=== PATIENT | male | born 1965 | race Caucasian/White ===

== ENCOUNTER 2021-10-02 17:20 | Outpatient (CLI) | payer MEDICAID, SELFPAY ==
[2021-10-02 17:47] VITALS: BP 115/99; PULSE 116; RESP 22; TEMP 37; O2SAT 92; BMI 39.5
[2021-10-02] MEDS: 0.9% Saline Lock 10 ML Syringe IV (18:16)
[2021-10-02 18:57] VITALS: BP 174/93; PULSE 105; RESP 20; TEMP 37.4; O2SAT 93
[2021-10-02 19:52] VITALS: BP 164/84; PULSE 103; RESP 20; TEMP 37.8; O2SAT 93
== END 2021-10-02 20:05 | disposition home or self-care (01) ==
LOC: MS3OUT 17:21 → MS3 17:22
PROVIDERS: PCP Family Medicine; Referring Provider Nurse Practitioner Adult Health; Visit Provider Nurse Practitioner Adult Health
DX: Z23 Encounter for immunization (principal); U07.1 COVID-19
CPT/HCPCS: J7050; M0245; Q0245; A4216

== ENCOUNTER 2025-08-11 15:38 | Emergency (ER) | payer SELFPAY ==
[2025-08-11 15:38] VITALS: BP 183/83; PULSE 70; RESP 18; TEMP 36.6; O2SAT 98; BMI 46.2
--- OUTSIDE RECORDS SUMMARY | 2025-08-11 17:14 | XMS RPT_ITS | CCD ---
Author Organization [facility] Care Team Providers Care Sounding Device Operator Name Role Phone Trill CATALYST IMPREGNATOR.Marcio VARGAS Primary Care Provider Trill CATALYST IMPREGNATOR.Marcio VARGAS Primary Care Provider Trill CATALYST IMPREGNATOR.Marcio VARGAS C Unavailable Michael Boogie MD Unavailable Manpreet Bloom RN Unavailable [phone] February [facility], Gabriela Unavailable Unavailable Patria DAVIS, Kim Unavailable Unavailable Trill CATALYST IMPREGNATOR.Marcio VARGAS C Unavailable Trill CATALYST IMPREGNATOR.Marcio VARGAS Primary Care Provider Trill CATALYST IMPREGNATOR.ALICIA Marcio C Unavailable Trill CATALYST IMPREGNATOR.Marcio VARGAS Primary Care Provider Trill CATALYST IMPREGNATOR.Raleigh VARGASistin C Unavailable Michael Boogie MD Unavailable Matthias Richard RN Unavailable Unavailable CASEY JUAN Admitting Unavailable EMI AKHTAR Referring Unavailable TRIGISELLE, MARCIO C Primary Care Unavailable PATRICIA SAMANIEGO Consulting Unavailable RAJESH ALCOCER Attending Unavailable Trill CATALYST IMPREGNATOR.Marcio VARGAS Primary Care Provider TRIGISELLE, MARCIO C Primary Care Unavailable TRIGISELLE, MARCIO C Referring Unavailable TRILL, MARCIO C Primary Care Unavailable FILIPE MADSEN Attending Unavailable JESSICA ELLIS Attending Unavailable TRILL, MARCIO C Primary Care Unavailable FILIPE MADSEN Attending Unavailable TRIGISELLE, MARCIO C Primary Care Unavailable TRILL, MARCIO C Referring Unavailable TRILL, MARCIO C Primary Care Unavailable TRILL, MARCIO C Referring Unavailable KAMILLE ASCENCIOACE TOMMY Attending Unavailable TRILL, MARCIO C Primary Care Unavailable JESSICA DURHAM Attending Unavailable TRILL, MARCIO C Primary Care Unavailable TRILL, MARCIO C Referring Unavailable TRILL, MARCIO C Primary Care Unavailable TRILL, MARCIO C Attending Unavailable TRILL, MARCIO C Primary Care Unavailable TRILL, MARCIO C Referring Unavailable TRILL, MARCIO C Referring Unavailable TRILL, MARCIO C Primary Care Unavailable TRILL, MARCIO C Primary Care Unavailable TRILL, MARCIO C Primary Care Unavailable TRILL, MARCIO C Referring Unavailable SELF Referring Unavailable TRILL, MARCIO C Primary Care Unavailable SHANNEN FLOWER Attending Unavailable TRILL, MARCIO C Attending Unavailable TRILL, MARCIO C Primary Care Unavailable Allergies Allergy Classification Reported Allergen(s) Allergy Type Date of Onset Reaction(s) Facility (20 sources) Seasonal allergy; Translations: [SEASONAL ALLERGIES] Allergy to substance 05-11-2013 Unknown [facility] Work Phone: (20 sources) Cat Dander; Translations: [CAT DANDER] Drug Allergy 09-29-2022 Intolerance [facility] Medications Current Medications Medication Drug Class(es) Dates Sig (Normalized) Sig (Original) acetaminophen 500 mg oral tablet (20 sources) Start: 06-09-2022 take 2 tablets by mouth every six hours as needed acetaminophen (TYLENOL) 500 mg tablet Take 2 tablets by mouth every 6 hours as needed for pain. 06/09/2022 Active Comment on above: Take 2 tablets by mo [facility] every 6 hours as needed for pain. 10 ml aminophylline 25 mg/ml injection (1 source) Start: 12-31-2023 End: 01-08-2024 aminophylline 50-250 mg injection amLODIPine 10 mg oral tablet (20 sources) Dihydropyridine Calcium Channel Ladarius Start: 01-03-2024 End: 02-02-2024 take 1 tablet by mouth once daily amLODIPine (NORVASC) 10 mg tablet take 1 tablet by mouth every day 90 tablet 3 01/28/2024 Active Comment on above: Take 1 tablet by randall th once daily. take 1 tablet by randall th every day amoxicillin 875 mg / clavulanate 125 mg oral tablet (12 sources) Penicillin-class Antibacterial Start: 08-28-2023 End: 09-07-2023 take 1 tablet by mouth every twelve hours amoxicillin-clavul anate potassium (AUGMENTIN) 875-125 mg per tablet Indications: Respiratory infection Take 1 tablet by mouth every 12 hours for 10 days. 20 tablet 0 08/28/2023 09/07/2023 Active Start: 06-13-2022 End: 06-23-2022 take 1 tablet by mouth every twelve hours amoxicillin-clavulanic acid (AUGMENTIN) 875-125 mg per tablet Indications: Pleural effusion on left Take 1 tablet by mouth every 12 hours for 10 days. 20 tablet 0 06/13/2022 06/23/2022 Suspended Comment on above: Take 1 tablet by randall th every 12 hours for 10 days. apixaban 5 mg oral tablet (20 sources) Factor Xa Inhibitor Start: 03-16-2025 take 1 tablet by mouth twice daily apixaban (ELIQUIS) 5 mg tab(s) Indications: Bilateral pulmonary embolism (HCC) TAKE 1 TABLET BY MOUTH TWICE DAILY 180 tablet 3 03/16/2025 Active Start: 10-10-2024 take 1 tablet by randall th twice daily ELIQUIS 5 mg tab(s) Indications: Bilateral pulmonary embolism (HCC) TAKE 1 TABLET BY MOUTH TWICE A DAY 180 tablet 1 10/10/2024 Active Start: 07-08-2022 End: 09-19-2024 take 1 tablet by mouth twice daily apixaban (ELIQUIS) 5 mg tab(s) Indications: History of pulmonary embolism Take 1 tablet by mouth two times a day. 60 tablet 0 01/02/2024 02/01/2024 Active Start: 06-26-2022 End: 07-08-2022 take 2 tablets by mouth twice daily, then take 1 tablet by mouth twice daily apixaban (ELIQUIS) 5 mg (74 tabs) Take 2 tablets (10 mg) by mouth twice daily for 7 days. Then take 1 tablet (5 mg) by mouth twice daily for 23 days 74 tablet 0 06/26/2022 07/08/2022 Discontinued Start: 06-26-2022 take 2 tablets by mo [facility] twice daily, then take 1 tablet by mouth twice daily apixaban (ELIQUIS) 5 mg (74 tabs) Take 2 tablets (10 mg) by mouth twice daily for 7 days. Then take 1 tablet (5 mg) by mouth twice daily for 23 days 74 tablet 0 06/26/2022 Active Start: 06-26-2022 End: 06-26-2022 take 2 tablets by mouth twice daily, then take 1 tablet by mouth twice daily apixaban (ELIQUIS) 5 mg (74 tabs) Take 2 tablets (10 mg) by mouth twice daily for 7 days. Then take 1 tablet (5 mg) by mouth twice daily for 23 days 74 tablet 0 06/26/2022 06/26/2022 Discontinued Comment on above: Take 2 tablets (10 m g) by mouth twice daily for 7 days. Then take 1 tablet (5 mg) by mouth twice daily for 23 days [facility]. [facility]. calcipotriene 0.51301 mg/mg topical ointment (16 sources) Vitamin D Analog Start: calcipotriene (DOVONEX) 0.005 % oint Apply 1 application to affected area once daily. For the lower legs. 60 g 3 05/24/2024 Active cephalexin 500 mg oral capsule (4 sources) Cephalosporin Antibacterial Start: End: take 1 capsule by mouth four times daily cephALEXin (KEFLEX) 500 mg capsule Take 1 capsule by mouth four times daily for 10 days. 40 capsule 0 06/02/2022 06/12/2022 Suspended Comment on above: Take 1 capsule by [facility] four times daily for 10 days. dapagliflozin 10 mg oral tablet (20 sources) Sodium-Glucose Cotransporter 2 Inhibitor Start: 025 take 0.5 tablet by mouth once daily at breakfast FARXIGA 10 mg tablet TAKE 1/2 (ONE-HALF) OF A TABLET BY MOUTH ONCE DAILY with BREAKFAST 45 tablet 03/15/2025 Active Start: 01-28-2024 End: 10-04-2024 take 0.5 tablet by mouth once daily at breakfast FARXIGA 10 mg tablet TAKE 0.5 TABLETS BY MOUTH DAILY WITH BREAKFAST. 45 tablet 10/04/2024 Active Comment on above: Take 0.5 tablets by mouth daily with breakfast. doxycycline hyclate 100 mg oral capsule (6 sources) Tetracycline-class Drug Start: 05-30-20 End: 06-09-20 take 1 capsule by mouth twice daily doxycycline hyclate (VIBRAMYCIN) 100 mg capsule Indications: sinusitis Take 1 capsule by mouth twice daily for 10 days. 20 capsule 0 05/30/2022 06/09/2022 Suspended Comment on above: Take 1 capsule by mo [facility] twice daily for 10 days. furosemide 40 mg oral tablet (20 sources) Loop Diuretic Start: 06-13-20 End: 09-23-20 23 take 1 tablet by mouth once furosemide (LASIX) 40 mg tablet Indications: Pleural effusion on left , Lung crackles Take 1 tablet by mouth every afternoon. 90 tablet 1 09/23/2023 Active Comment on above: Take 1 tablet by randall th once daily. TAKE 1 TABLET BY RANDALL TH EVERY DAY Take 1 tablet by randall th every afternoon. hydrALAZINE hydrochloride 10 mg oral tablet (20 sources) Arteriolar Vasodilator Start: 10-10-20 End: 05-15-20 take 1 tablet by mouth three times daily hydrALAZINE (APRESOLINE) 10 mg tablet Indications: Essential hypertension TAKE 1 TABLET BY MOUTH THREE TIMES DAILY 270 tablet 1 05/15/2025 Active Start: 02-17-2024 End: 08-15-2024 take 1 tablet by mouth three times daily hydrALAZINE (APRESOLINE) 10 mg tablet Indications: Essential hypertension Take 1 tablet by mouth three times a day. 270 tablet 1 02/17/2024 Active Start: 01-02-2024 End: 02-01-2024 take 1 tablet by mouth every six hours as needed hydrALAZINE (APRESOLINE) 10 mg tablet Take 1 tablet by mouth every 6 hours as needed (SBP >160 or DBP >100). 21 tablet 0 01/02/2024 Active Comment on above: Take 1 tablet by randall th every 6 hours as needed (SBP >160 or DBP >100). iv contrast (will be provided with radiology test) (20 sources) Start: 5 End: 5 inject 1 dose intravenously once iv contrast (will be provided with radiology test) Indications: SOB (shortness of breath) , Heart failure with mid-range ejection fraction (HCC) , Coronary artery calcification seen on CT scan CTA Coronary. No IV access, insert saline lock prior to the sedation, infusion, injection for imaging exam. Discontinue saline lock post exam. If Pt. has a central line or IVAD, may access for administration according to line specific nursing protocol. Once exam is complete flush line and de-access according to line specific nursing protocol in the CT contrast administration guidelines link. 1 each 07/05/2025 07/06/2025 Active Start: 04-14-2024 End: 04-15-2024 iv contrast (will be provide d with radiology test) MRI Pituitary Inject, intravenously, once for 1 dose. No IV access, insert saline lock prior to the beginning of sedation, infusion, injection of imaging exam. Discontinue saline lock post exam. If Pt. has a central line or IVAD, may access for administration according to line specific nursing protocol. Once exam is complete flush line and de-access according to line specific nursing protocol in the MR contrast administration guidelines link. 1 Each 0 04/14/2024 04/15/2024 Active Start: 09-24-2022 End: 09-23-2023 iv contrast (will be provide d with radiology test) Indications: Pulmonary embolism, bilateral (HCC) CT Chest PE -Inject, intravenously, once for 1 dose.No IV access, insert saline lock prior to the beginning of sedation, infusion, injection of imaging exam. Discontinue saline lock post exam. If Pt. has a central line or IVAD, may access for administration according to line specific nursing protocol. Once exam is complete flush line and de-access according to line specific nursing protocol in the CT contrast administration guidelines link. 1 Each 0 09/24/2022 09/23/2023 Discontinued Start: 09-24-2022 iv contrast (w ill be provided with radiology test) Indications: Pulmonary embolism, bilateral (HCC) CT Chest PE -Inject, intravenously, once for 1 dose.No IV access, insert saline lock prior to the beginning of sedation, infusion, injection of imaging exam. Discontinue saline lock post exam. If Pt. has a central line or IVAD, may access for administration according to line specific nursing protocol. Once exam is complete flush line and de-access according to line specific nursing protocol in the CT contrast administration guidelines link. 1 Each 0 09/24/2022 Active Comment on above: CT Chest PE -Inject, intravenously, once for 1 dose.No IV access, insert saline lock prior to the beginning of sedation, infusion, injection of imaging exam. Discontinue saline lock post exam. If Pt. has a central line or IVAD, may access for administration according to line specific nursing protocol. Once exam is complete flush line and de-access according to line specific nursing protocol in the CT contrast administration guidelines link. ammonium lactate 120 mg/ml topical cream (20 sources) Start: 4 ammonium lactate (LAC-HYDRIN) 12 % cream Indications: Xerosis cutis Apply to affected area as needed. 385 g 5 02/24/2024 Active losartan potassium 100 mg oral tablet (20 sources) Angiotensin 2 Receptor Ladarius Start: 3 End: 5 take 1 tablet by mouth once losartan (COZAAR) 100 mg tablet Indications: Essential hypertension Take 1 tablet by mouth every afternoon. 90 tablet 1 04/19/2025 Active Start: 10-22-2022 End: 04-30-2023 take 1 tablet by mouth once daily losartan (COZAAR) 100 mg tablet Indications: Essential hypertension TAKE 1 TABLET BY MOUTH EVERY DAY 30 tablet 2 04/30/2023 Active Start: 10-29-2021 End: 05-27-2022 take 1 tablet by mouth once daily losartan (COZAAR) 100 mg tablet Indications: Essential hypertension Take 1 tablet by mouth once daily. 30 tablet 2 05/27/2022 Active Comment on above: TAKE 1 TABLET BY RANDALL TH EVERY DAY TAKE ONE TABLET BY M OUT ONCE DAILY Take 1 tablet by randall th once daily. methocarbamol 500 mg oral tablet (1 source) Muscle Relaxant Start: 4 End: 4 take 1 tablet by mouth every twelve hours as needed methocarbamol (ROBAXIN) 500 mg tablet Take 1 tablet by mouth two times a day as needed for up to 7 days. 10 tablet 0 01/02/2024 01/09/2024 Active Comment on above: Take 1 tablet by randall th two times a day as needed for up to 7 days. metoprolol tartrate 50 mg oral tablet (20 sources) beta-Adrenergic Ladarius Start: 5 metoprolol tartrate, short acting, (LOPRESSOR) 50 mg tablet Indications: SOB (shortness of breath) , Heart failure with mid-range ejection fraction (HCC) , Coronary artery calcification seen on CT scan Take one 50 mg tablet the evening prior to the CTA examination, take another 50 mg tablet the morning of the CTA examination. 2 tablet 07/05/2025 Active Start: 12-31-2023 End: 01-08-2024 metoprolol 2.5-5 mg injectio n (LOPRESSOR) Start: 10-29-2021 End: 10-20-2024 take 1 tablet by mouth once metoprolol succinate ER (T OPROL XL) 100 mg Indications: Essential hypertension Take 1 tablet by mouth every afternoon. 90 tablet 1 10/21/2024 Active Comment on above: TAKE 1 TABLET BY RANDALL TH EVERY DAY Take 1 tablet by randall th once daily. nitroglycerin 0.3 mg sublingual tablet (1 source) Nitrate Vasodilator Start: 07-05-20 take 1 tablet under the tongue once nitroglycerin sublingual (NITROQUICK) 0.3 mg SL tablet Indications: SOB (shortness of breath) , Heart failure with mid-range ejection fraction (HCC) , Coronary artery calcification seen on CT scan Dissolve 1 tablet under the tongue one time only for 1 dose. To be administered in Radiology for CTA exam 1 tablet 07/05/2025 Active Non-Adherent Bandage (CURITY ABDOMINAL PAD) 5 X 9 bndg (16 sources) Start: 06-02-20 End: 06-17-20 Non-Adherent Bandage (CURITY ABDOMINAL PAD) 5 X 9 bndg Indications: Wound of left lower extremity, subsequent encounter APPLY 2 UNITS TO AFFECTED AREA THREE TIMES DAILY. ONLY COMES IN INSTITUTIONAL PACKAGE OF #880. 90 Each 0 06/02/2022 06/17/2022 Discontinued (Other) Start: 06-02-2022 Non-Adherent B andage (CURITY ABDOMINAL PAD) 5 X 9 bndg Indications: Wound of left lower extremity, subsequent encounter APPLY 2 UNITS TO AFFECTED AREA THREE TIMES DAILY. ONLY COMES IN INSTITUTIONAL PACKAGE OF #880. 90 Each 0 06/02/2022 Suspended Start: 06-02-2022 Non-Adherent B andage (CURITY ABDOMINAL PAD) 5 X 9 bndg Indications: Wound of left lower extremity, subsequent encounter APPLY 2 UNITS TO AFFECTED AREA THREE TIMES DAILY. ONLY COMES IN INSTITUTIONAL PACKAGE OF #880. 90 Each 0 06/02/2022 Active Start: 05-30-2022 End: 06-02-2022 Non-Adherent Bandage (CURITY ABDOMINAL PAD) 5 X 9 bndg Indications: Wound of left lower extremity, subsequent encounter Apply 2 Units to affected area three times daily. 90 Each 0 05/30/2022 06/02/2022 Discontinued Start: 05-30-2022 End: 06-29-2022 Non-Adherent Bandage (CURITY ABDOMINAL PAD) 5 X 9 bndg Indications: Wound of left lower extremity, subsequent encounter Apply 2 Units to affected area three times daily. 90 Each 0 05/30/2022 06/29/2022 Active Comment on above: Apply 2 Units to aff ected area three times daily. APPLY 2 UNITS TO AFF ECTED AREA THREE TIMES DAILY. ONLY COMES IN INSTITUTIONAL PACKAGE OF #880. Non-Adherent Bandage (NON-STICK PAD) 3 X 8 bndg (14 sources) Start: 06-02-2022 End: 06-17-2022 Non-Adherent Bandage (NON-STICK PAD) 3 X 8 bndg Indications: Wound of left lower extremity, subsequent encounter APPLY 4 UNITS TO AFFECTED AREA THREE TIMES DAILY. NOT AVAILABLE AT RETAIL. 360 Each 0 06/02/2022 06/17/2022 Discontinued (Other) Start: 06-02-2022 Non-Adherent B andage (NON-STICK PAD) 3 X 8 bndg Indications: Wound of left lower extremity, subsequent encounter APPLY 4 UNITS TO AFFECTED AREA THREE TIMES DAILY. NOT AVAILABLE AT RETAIL. 360 Each 0 06/02/2022 Suspended Start: 06-02-2022 Non-Adherent B andage (NON-STICK PAD) 3 X 8 bndg Indications: Wound of left lower extremity, subsequent encounter APPLY 4 UNITS TO AFFECTED AREA THREE TIMES DAILY. NOT AVAILABLE AT RETAIL. 360 Each 0 06/02/2022 Active Comment on above: APPLY 4 UNITS TO AFF ECTED AREA THREE TIMES DAILY. NOT AVAILABLE AT RETAIL. perflutren lipid microspheres 1.3 mL in NaCl (PF) 0.9% 10 mL injection (DEFINITY) (1 source) Start: 12-12-19 21 End: 03-13-20 perflutren lipid microspheres 1.3 mL in NaCl (PF) 0.9% 10 mL injection (DEFINITY) microencapsulated potassium chloride 20 meq extended release oral tablet (20 sources) Start: 06-13-20 End: 09-23-20 23 take 2 tablets by mouth once daily potassium chloride ER (KLOR-CON M20) 20 mEq tablet Indications: Pleural effusion on left TAKE 2 TABLETS BY MOUTH ONCE DAILY WITH FUROSEMIDE. 180 tablet 1 09/23/2023 Active Comment on above: Take 2 tablets by mo [facility] once daily. Take with Lasix. TAKE 2 TABLETS BY MO UT ONCE DAILY WITH FUROSEMIDE. regadenoson 0.4 mg injection (LEXISCAN) (1 source) Start: 12-31-19 24 End: 01-08-20 24 regadenoson 0.4 mg injection (LEXISCAN) rosuvastatin calcium 20 mg oral tablet (20 sources) HMG-CoA Reductase Inhibitor Start: 09-27-20 End: 05-15-20 take 1 tablet by mouth once daily at bedtime rosuvastatin (CRESTOR) 20 mg tablet TAKE 1 TABLET BY MOUTH EVERY DAY AT BEDTIME 90 tablet 1 05/15/2025 Active Comment on above: Take 1 tablet by [facility] daily at bedtime. 125 ml sodium chloride 9 mg/ml prefilled syringe (1 source) Start: 12-12-19 End: 03-13-20 sodium chloride 0.9 % (flush) 10 mL (BD POSIFLUSH) Completed/Discontinued Medications Medication Drug Class(es) Dates Sig (Normalized) Sig (Original) acetic acid 2.5 mg/ml irrigation solution (5 sources) Start: 10-30-2022 acetic acid 0.25 % IRRIGATION Apply 20 mL to affected area three times a week. 500 mL 0 10/30/2022 Active Comment on above: Apply 20 mL to affec carol area three times a week. alginate dressing (ALGISITE M) 4 X 4 bndg (20 sources) Start: 07-09-2022 alginate dressing (ALGISITE M) 4 X 4 bndg Indications: Wound of left lower extremity, subsequent encounter APPLY 1 UNITS TO AFFECTED AREA ONCE DAILY. 30 Each 2 07/09/2022 Active Comment on above: APPLY 1 UNITS TO AFF ECTED AREA ONCE DAILY. bacitracin 0.5 unt/mg topical ointment (20 sources) Start: 06-25-2022 End: 03-23-2024 bacitracin 500 unit/gram ointment Apply to affected area once daily. Right 2nd toe 28.4 g 0 06/25/2022 03/23/2024 Discontinued (Other) Comment on above: Apply to affected ar ea once daily. Right 2nd toe cefdinir 300 mg oral capsule (7 sources) Cephalosporin Antibacterial Start: 06-25-2022 End: 07-03-2022 take 1 capsule by mouth twice daily cefdinir (OMNICEF) 300 mg capsule Take 1 capsule by mouth twice daily for 8 days. 16 capsule 0 06/25/2022 07/03/2022 Comment on above: Take 1 capsule by mo [facility] twice daily for 8 days. ciprofloxacin 500 mg oral tablet (9 sources) Quinolone Antimicrobial Start: 06-09-2022 End: 06-14-2022 take 1 tablet by mouth every twelve hours ciprofloxacin HCl (CIPRO) 500 mg tablet Take 1 tablet by mouth every 12 hours for 10 doses. 10 tablet 0 06/09/2022 06/14/2022 Comment on above: Take 1 tablet by [facility] every 12 hours for 10 doses. fluticasone furoate 0.0275 mg/actuat metered dose nasal spray (10 sources) Corticosteroid Start: 04-02-2021 End: 05-27-2022 take 1 spray(s) nasal route once daily Fluticasone Furoate (FLONASE SENSIMIST) 27.5 mcg/actuation nasal spray Use 1 [place] in each nostril once daily. 5.9 mL 2 05/27/2022 Active Comment on above: Use 1 [place] in each nostril once daily. Gauze Bandage (KERLIX) 3.4 X 3.6 -yard bndg (6 sources) Start: 06-02-2022 Gauze Bandage (KERLIX) 3.4 X 3.6 -yard bndg Indications: Wound of left lower extremity, subsequent encounter APPLY TO AFFECTED AREA 3 TIMES A DAY. NOT AVAILABLE AT RETAIL. 96 Each 0 06/02/2022 Suspended Start: 06-02-2022 Gauze Bandage (KERLIX) 3.4 X 3.6 -yard bndg Indications: Wound of left lower extremity, subsequent encounter APPLY TO AFFECTED AREA 3 TIMES A DAY. NOT AVAILABLE AT RETAIL. 96 Each 0 06/02/2022 Active Start: 05-30-2022 End: 06-02-2022 Gauze Bandage (KERLIX) 3.4 X 3.6 -yard bndg Indications: Wound of left lower extremity, subsequent encounter Apply 1 application to affected area three times daily. 90 Each 0 05/30/2022 06/02/2022 Discontinued Start: 05-30-2022 Gauze Bandage (KERLIX) 3.4 X 3.6 -yard bndg Indications: Wound of left lower extremity, subsequent encounter Apply 1 application to affected area three times daily. 90 Each 0 05/30/2022 Active Comment on above: Apply 1 application to affected area three times daily. APPLY TO AFFECTED AR EA 3 TIMES A DAY. NOT AVAILABLE AT RETAIL. Gauze Bandage 4 X 4 spge (6 sources) Start: 05-30-2022 Gauze Bandage 4 X 4 spge Indications: Wound of left lower extremity, subsequent encounter Apply 3 Units to affected area three times daily. 180 Each 0 05/30/2022 Suspended Start: 05-30-2022 Gauze Bandage 4 X 4 spge Indications: Wound of left lower extremity, subsequent encounter Apply 3 Units to affected area three times daily. 180 Each 0 05/30/2022 Active Comment on above: Apply 3 Units to aff ected area three times daily. ibuprofen 600 mg oral tablet (6 sources) Nonsteroidal Anti-inflammatory Drug Start: 05-30-20 take 1 tablet by mouth every six hours as needed ibuprofen (MOTRIN) 600 mg tablet Take 1 tablet by mouth every 6 hours as needed for pain. 90 tablet 1 05/30/2022 Suspended Comment on above: Take 1 tablet by randall th every 6 hours as needed for pain. levoFLOXacin 500 mg oral tablet (3 sources) Quinolone Antimicrobial Start: 10-30-19 23 End: 11-09-19 23 take 1 tablet by mouth once daily levoFLOXacin (LEVAQUIN) 500 mg tablet Take 1 tablet by mouth once daily for 10 days. 10 tablet 0 10/30/2022 11/09/2022 Comment on above: Take 1 tablet by randall th once daily for 10 days. loratadine 10 mg oral tablet (20 sources) Start: 06-23-20 22 take 1 tablet by mouth once daily loratadine (CLARITIN) 10 mg tablet TAKE 1 TABLET BY MOUTH EVERY DAY 30 tablet 2 06/23/2022 Active Start: 04-02-2021 End: 09-23-2023 take 1 tablet by mouth once daily loratadine (CLARITIN) 10 mg tablet Take 1 tablet by mouth once daily. 30 tablet 2 05/27/2022 Active Comment on above: Take 1 tablet by randall th once daily. TAKE 1 TABLET BY RANDALL TH EVERY DAY Take 10 mg by mouth once daily. metroNIDAZOLE 500 mg oral tablet (7 sources) Nitroimidazole Antimicrobial Start: 06-25-20 End: 07-03-20 take 1 tablet by mouth every eight hours metroNIDAZOLE (FLAGYL) 500 mg tablet Take 1 tablet by mouth every 8 hours for 8 days. 24 tablet 0 06/25/2022 07/03/2022 Comment on above: Take 1 tablet by randall th every 8 hours for 8 days. Non-Adherent Bandage 5 X 9 bndg (2 sources) Start: 05-30-20 End: 06-02-20 Non-Adherent Bandage 5 X 9 bndg Indications: Wound of left lower extremity, subsequent encounter Apply 4 Units to affected area three times daily. 360 Each 0 05/30/2022 06/02/2022 Discontinued Start: 05-30-2022 Non-Adherent B andage 5 X 9 bndg Indications: Wound of left lower extremity, subsequent encounter Apply 4 Units to affected area three times daily. 360 Each 0 05/30/2022 Active Comment on above: Apply 4 Units to aff ected area three times daily. polyethylene glycol [id number] [id number] mg / potassium chloride 2970 mg / sodium bicarbonate 6740 mg / sodium chloride 5860 mg / sodium sulfate 46784 mg powder for oral solution (1 source) Osmotic Laxative Start: 5 End: 5 peg 3350-Electrolytes (GOLYTELY) 236-22.74-6.74 -5.86 gram suspension Indications: Encounter for colorectal cancer screening Take 4,000 mL by mouth one time only for 1 dose. Refer to printed prep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 information about you: Yola Gallagher MA 03/15/2025 1:32 PM Signed Last seen: 01/28/2024, Please call patient with 6 month follow up with Dr. Almaraz or OJ. Taniya Vallecillo 03/15/2025 3:35 PM Signed Spoke with patient's and scheduled overdue follow up on 05/25/2025 at 4pm in [place]. Thank you, Taniya Vallecillo Allergies As of Date: 03/15/2025 Noted Allergy Reaction CAT DANDER 09/29/2022 5 - Intolerance HAY FEVER (SEASONAL ALLERGIES) 05/11/2013 16 - Unknown Date Reviewed: 01/04/2025 Reviewed by: Marcio Vasquez APRN.[facility] - Fully Assessed Reason for Visit: Appointment [186] Prescriptions as of 03/15/2025 - metoprolol succinate ER (TOPROL XL) 100 mg Take 1 tablet by mouth every afternoon. - ELIQUIS 5 mg tab(s) TAKE 1 TABLET BY MOUTH TWICE A DAY - hydrALAZINE (APRESOLINE) 10 mg tablet TAKE 1 TABLET BY MOUTH THREE TIMES A DAY - FARXIGA 10 mg tablet TAKE 0.5 TABLETS BY MOUTH DAILY WITH BREAKFAST. - rosuvastatin (CRESTOR) 20 mg tablet TAKE 1 TABLET BY MOUTH EVERYDAY AT BEDTIME - losartan (COZAAR) 100 mg tablet Take 1 tablet by mouth every afternoon. - calcipotriene (DOVONEX) 0.005 % oint Apply 1 application to affected area once daily. For the lower legs. - ammonium lactate (LAC-HYDRIN) 12 % cream Apply to affected area as needed. - amLODIPine (NORVASC) 10 mg tablet take 1 tablet by mouth every day - furosemide (LASIX) 40 mg tablet Take 1 tablet by mouth every afternoon. - potassium chloride ER (KLOR-CON M20) 20 mEq tablet TAKE 2 TABLETS BY MOUTH ONCE DAILY WITH FUROSEMIDE. - acetaminophen (TYLENOL) 500 mg tablet Take 2 tablets by mouth every 6 hours as needed for pain. Problem List As Of Date 03/15/2025 Noted Resolved Hypertension [I10] Stasis edema [I87.309] PRERNA (obstructive sleep apnea) [G47.33] Seasonal allergies [J30.2] GERD (gastroesophageal reflux disease) [K21.9] Renal calculus [N20.0] BMI 45.0-49.9, adult ([facility]) [Z68.42] Rhinitis [J31.0] 09/07/2013 Back pain [M54.9] Lymphedema [I89.0] 02/09/2015 Elevated serum creatinine [R79.89] 12/14/2020 Hyperlipidemia, mixed [E78.2] 12/14/2020 Bilateral leg edema [R60.0] 04/16/2021 Stage 3a chronic kidney disease (HCC) [N18.31] Left Lower Leg Cellulitis [L03.90] 06/04/2022 06/09/2022 Left Lower Leg Wound Infection [T14.8XXA, L08.9]06/04/2022 Chronic venous stasis LEs [I87.8] 06/05/2022 Pulmonary embolism, bilateral ([facility]) [I26.99] 06/16/2022 09/30/2023 Right leg DVT ([facility]) [I82.401] 06/25/2022 Choledocholithiasis [K80.50] 06/25/2022 Ulcer of lower limb, left, limited to breakdown*11/12/2022 Chronic venous insufficiency [I87.2] 11/12/2022 Leg ulcer, left, with fat layer exposed ([facility]) [*03/10/2023 History of pulmonary embolism [Z86.711] 09/30/2023 Chronic congestive heart failure (HCC) [I50.9] 10/23/2023 Chest pain, pleuritic [R07.81] 12/31/2023 Hypoxia [R09.02] 12/31/2023 Heart failure with mid-range ejection fraction *01/28/2024 Encounter Status:Closed by TANIYA VALLECILLO on 03/15/25 Normal [facility] HbA1c (Bld)on 01-14-2025 Average glucose Estimated from glycated hemoglobin (Bld) [Mass/Vol] 131 mg/dL Normal [facility] Comment on above: Order Comment: Speci men Type: BLOOD SPECIMEN Ordering Facility: [facility] Address: [address] [place] [address] Result Comment: eAG: (Estimated average glucose) is a calculated value from HgbA1c and is digital media representative of the average blood glucose level in the last 2-3 month period. Performed By: #### 5 7021-8 #### [facility] CLIA [id number] [address] [place] [address] [place] HbA1c (Bld) [Mass fraction] 6.2 % High 4.3-5.6 [facility] Comment on above: Order Comment: Speci men Type: BLOOD SPECIMEN Ordering Facility: [facility] Address: [address] [place] [address] Result Comment: Amer [place] Diabetes Association guidelines indicate that patients with HgbA1c in the range 5.7-6.4% are at increased risk for development of diabetes, and intervention by lifestyle modification may be beneficial. HgbA1c greater or equal to 6.5% is considered diagnostic of diabetes. Performed By: #### 5 7021-8 #### [facility] CLIA [id number] [address] [id number] [place] PSA/PROSTATE SPECIFIC ANTIGE N SCREENINGon 01-14-2025 Prostate specific Ag [Mass/Vol] 3.06 ng/mL High <2.60 [facility] Comment on above: Order Comment: Speci men Type: BLOOD SPECIMEN Ordering Facility: [facility] Address: [address] [place], [place] [id number] Result Comment: Mario l PSA test methodology used is the Electrochemiluminescence Immunoassay by [employer]. Total PSA values by differing methodologies cannot be interchanged. For an individual patient, the significance of a PSA level should be interpreted in a broad clinical context, including age, race, family history, digital rectal exam, prostate size, results of prior testing (prostate biopsy, free PSA, PCA3), and use of 5-alpha reductase inhibitors. Considering the high incidence of asymptomatic cancer in the general population that may not pose an ultimate risk to a patient, the decision to recommend urological evaluation or prostate biopsy should be individualized after consideration of all these factors. REFERENCE: Jeison Blackmon M.D., M.P.H., Cale Cha M.D., Ph.D., Brady Rivers M.D., Marcelle Conde, M.P.H., Narcisa Berman, Sc.Kori. Effect of Verification Bias on Screening for Prostate Cancer by Measurement of Prostatic Specific Antigen. N Engl J Med 2003,349:335-42. Performed By: #### P SAS1 #### [id number] [address] OF [facility] CNOVon 01-04-2025 [facility] Office Visit (ANA KUNZ) LUCRECIANORMA Alexus ([id number]) 1965 M Date Time Provider Department 01/04/25 11:20 AM MARCIO VASQUEZ During your visit today, we recorded the following information about you: Temperature Pulse Respiration Blood pressure 97.8 degrees 75/minute 18/minute 126/78 Weight Height 177.8 kg 1.88 m Marcio Vasquez, OJ.BUSINESS SUPPORT ASSOCIATE 01/05/2025 12:09 AM Signed Subjective Noram Alexus Singer is a 59 year old male here today for well adult exam. I reviewed past medical, surgical, social, and family histories today and updated chart. Allergies, chronic medications, and supplements were also reviewed. HPI Feeling okay He is having pain in the left shoulder blade x 1 month Thinks its strained from push ups Pains is intermittent, just comes on all of sudden Pain is sharp - stabbing Can tell something is there right now Worse with laying on side Preventative Health: Prostate cancer screening - never had done Colorectal cancer screening - Had a colonoscopy within the last 10 years in [place], no polyps Lipid screening - October Quit smoking 1982 PAST MEDICAL HISTORY Diagnosis Date Arthritis Back pain Chronic congestive heart failure (HCC) 10/23/2023 GERD (gastroesophageal reflux disease) occasional History of transfusion Hypertension Obesity Obstructive sleep apnea 10/26/2012 Severe;Pt unable to tolerate wearing machine Pulmonary embolism, bilateral (HCC) 06/16/2022 Renal calculus 10/26/2010 Seasonal allergies Stage 3a chronic kidney disease (HCC) Stasis edema with recurrent cellulitis PAST SURGICAL HISTORY Procedure Laterality Date PROCEDURE 05/25/2022 IANDD back of left leg ALLERGIES Cat Dander and Hay Fever [Seasonal Allergies] MEDICATIONS metoprolol succinate ER (TOPROL XL) 100 mg Take 1 tablet by mouth every afternoon. ELIQUIS 5 mg tab(s) TAKE 1 TABLET BY MOUTH TWICE A DAY hydrALAZINE (APRESOLINE) 10 mg tablet TAKE 1 TABLET BY MOUTH THREE TIMES A DAY FARXIGA 10 mg tablet TAKE 0.5 TABLETS BY MOUTH DAILY WITH BREAKFAST. rosuvastatin (CRESTOR) 20 mg tablet TAKE 1 TABLET BY MOUTH EVERYDAY AT BEDTIME losartan (COZAAR) 100 mg tablet Take 1 tablet by mouth every afternoon. calcipotriene (DOVONEX) 0.005 % oint Apply 1 application to affected area once daily. For the lower legs. ammonium lactate (LAC-HYDRIN) 12 % cream Apply to affected area as needed. amLODIPine (NORVASC) 10 mg tablet take 1 tablet by mouth every day furosemide (LASIX) 40 mg tablet Take 1 tablet by mouth every afternoon. potassium chloride ER (KLOR-CON M20) 20 mEq tablet TAKE 2 TABLETS BY MOUTH ONCE DAILY WITH FUROSEMIDE. acetaminophen (TYLENOL) 500 mg tablet Take 2 tablets by mouth every 6 hours as needed for pain. FAMILY HISTORY Problem Relation Age of Onset Cancer Mother pancreatic- at age 81 Diabetes Mother Hypertension Mother Thyroid Mother Cancer Father lung cancer- at age 72 Alcohol/Drug Brother drugs and alcohol Alcohol/Drug Sister drugs and alcohol Alcohol/Drug Sister drugs and alcohol Alcohol/Drug Sister drugs and alcohol Breast Cancer Maternal Aunt Social History Tobacco Use Smoking status: Former Current packs/day: 0.00 Average packs/day: 1 pack/day for 14.0 years (14.0 ttl pk-yrs) Types: Cigarettes Start date: 05/11/1969 Quit date: 05/11/1983 Years since quittin.6 Smokeless tobacco: Never Vaping Use Vaping status: Never Used Substance Use Topics Alcohol use: Never Comment: no alcohol since 17years old, strong family history Drug use: No Comment: Former use Review of Systems Constitutional: Negative for appetite change, chills, fatigue, fever and unexpected weight change. HENT: Positive for hearing loss. Negative for congestion, ear pain, rhinorrhea and sore throat. Eyes: Negative for pain, discharge, itching and visual disturbance. Respiratory: Positive for shortness of breath (with activity). Negative for cough and wheezing. Cardiovascular: Positive for leg swelling. Negative for chest pain and palpitations. Gastrointestinal: Negative for abdominal pain, constipation, diarrhea, nausea and vomiting. Genitourinary: Negative for difficulty urinating. Musculoskeletal: Positive for back pain. Negative for arthralgias. Skin: Negative for rash. Neurological: Negative for dizziness, tremors, weakness and headaches. Psychiatric/Behavioral: Negative for dysphoric mood and sleep disturbance. The patient is not nervous/anxious. Objective BP 126/78 Pulse 75 Temp (Src) 97.8 (Oral) Resp 18 Ht 6' 2 (1.88m) Wt 392 lb (177.8kg) SpO2 95% BMI 50.31 kg/(m2). Physical Exam Constitutional: Appearance: Normal appearance. He is well-developed. HENT: Head: Normocephalic and atraumatic. Right Ear: Hearing, tympanic membrane, ear canal and external ear normal. No drainage. Left Ear: Hear (more content not included)... Normal [facility] Bill 11-14-2024 [facility] Telephone ([employer]) NORMA SINGER ([id number]) 1965 M Date Time Provider Department 11/14/24 MARCIO VASQUEZ During your visit today, we recorded the following information about you: Aure Trinh MA 11/14/2024 5:12 PM Signed ----- Message from Marcio Vasquez APRN.[employer]INESS SUPPORT ASSOCIATE sent at 11/14/2024 5:08 PM EST ----- Labs are WNL besides the lipid panel. Continue crestor 20 mg once a day. Marcio Vasquez APRN.Aure Candelaria MA 11/14/2024 5:12 PM Signed Patient notified. Aure Trinh MA Allergies As of Date: 11/14/2024 Noted Allergy Reaction CAT DANDER 09/29/2022 5 - Intolerance HAY FEVER (SEASONAL ALLERGIES) 05/11/2013 16 - Unknown Date Reviewed: 10/28/2024 Reviewed by: Mitra Zamudio, RN - Fully Assessed Reason for Visit: Results [95] Prescriptions as of 11/14/2024 - metoprolol succinate ER (TOPROL XL) 100 mg Take 1 tablet by mouth every afternoon. - ELIQUIS 5 mg tab(s) TAKE 1 TABLET BY MOUTH TWICE A DAY - hydrALAZINE (APRESOLINE) 10 mg tablet TAKE 1 TABLET BY MOUTH THREE TIMES A DAY - FARXIGA 10 mg tablet TAKE 0.5 TABLETS BY MOUTH DAILY WITH BREAKFAST. - rosuvastatin (CRESTOR) 20 mg tablet TAKE 1 TABLET BY MOUTH EVERYDAY AT BEDTIME - losartan (COZAAR) 100 mg tablet Take 1 tablet by mouth every afternoon. - calcipotriene (DOVONEX) 0.005 % oint Apply 1 application to affected area once daily. For the lower legs. - ammonium lactate (LAC-HYDRIN) 12 % cream Apply to affected area as needed. - amLODIPine (NORVASC) 10 mg tablet take 1 tablet by mouth every day - furosemide (LASIX) 40 mg tablet Take 1 tablet by mouth every afternoon. - potassium chloride ER (KLOR-CON M20) 20 mEq tablet TAKE 2 TABLETS BY MOUTH ONCE DAILY WITH FUROSEMIDE. - acetaminophen (TYLENOL) 500 mg tablet Take 2 tablets by mouth every 6 hours as needed for pain. Problem List As Of Date 11/14/2024 Noted Resolved Hypertension [I10] Stasis edema [I87.309] PRERNA (obstructive sleep apnea) [G47.33] Seasonal allergies [J30.2] GERD (gastroesophageal reflux disease) [K21.9] Renal calculus [N20.0] BMI 45.0-49.9, adult ([facility]) [Z68.42] Rhinitis [J31.0] 09/07/2013 Back pain [M54.9] Lymphedema [I89.0] 02/09/2015 Elevated serum creatinine [R79.89] 12/14/2020 Hyperlipidemia, mixed [E78.2] 12/14/2020 Bilateral leg edema [R60.0] 04/16/2021 Stage 3a chronic kidney disease (HCC) [N18.31] Left Lower Leg Cellulitis [L03.90] 06/04/2022 06/09/2022 Left Lower Leg Wound Infection [T14.8XXA, L08.9]06/04/2022 Chronic venous stasis LEs [I87.8] 06/05/2022 Pulmonary embolism, bilateral ([facility]) [I26.99] 06/16/2022 09/30/2023 Right leg DVT ([facility]) [I82.401] 06/25/2022 Choledocholithiasis [K80.50] 06/25/2022 Ulcer of lower limb, left, limited to breakdown*11/12/2022 Chronic venous insufficiency [I87.2] 11/12/2022 Leg ulcer, left, with fat layer exposed ([facility]) [*03/10/2023 History of pulmonary embolism [Z86.711] 09/30/2023 Chronic congestive heart failure ([facility]) [I50.9] 10/23/2023 Chest pain, pleuritic [R07.81] 12/31/2023 Hypoxia [R09.02] 12/31/2023 Heart failure with mid-range ejection fraction *01/28/2024 Encounter Status:Closed by AURE TRINH on 11/14/24 [facility] CBC panel Auto (Bld)on 11-08 Erythrocyte distribution width (RBC) [Ratio] 12.9 % Normal 11.5-15.0 [facility] Comment on above: Order Comment: Speci men Type: BLOOD SPECIMEN Ordering Facility: [facility] Address: [address] [place] [address] Performed By: #### 5 8410-2 #### [facility] CLIA [id number] [address] [place] [address] [place] OF [facility] Hematocrit (Bld) [Volume fraction] 52.0 % High 39.0-51.0 [facility] Comment on above: Order Comment: Speci men Type: BLOOD SPECIMEN Ordering Facility: [facility] Address: [address] [place] [address] Performed By: #### 5 8410-2 #### [facility] CLIA [id number] [address] [place] [address] [place] Hemoglobin (Bld) [Mass/Vol] 15.9 g/dL Normal 13.0-17.0 [facility] Comment on above: Order Comment: Speci men Type: BLOOD SPECIMEN Ordering Facility: [facility] Address: [address] [place] [address] Performed By: #### 5 8410-2 #### [facility] CLIA [id number] [address] [place] [address] [place] MCH (RBC) [Entitic mass] 29.8 pg Normal 26.0-34.0 [facility] Comment on above: Order Comment: Speci men Type: BLOOD SPECIMEN Ordering Facility: [facility] Address: [address] [place] [address] Performed By: #### 5 8410-2 #### [facility] CLIA [id number] [address] [place] [address] [place] MCHC (RBC) [Mass/Vol] 30.6 g/dL Normal 30.5-36.0 [facility] Comment on above: Order Comment: Speci men Type: BLOOD SPECIMEN Ordering Facility: [facility] Address: [address] [place] [address] Performed By: #### 5 8410-2 #### [facility] CLIA [id number] [address] [place] [address] [place] MCV (RBC) [Entitic vol] 97.6 fL Normal 80.0-100.0 [facility] Comment on above: Order Comment: Speci men Type: BLOOD SPECIMEN Ordering Facility: [facility] Address: [address] [place] [address] Performed By: #### 5 8410-2 #### [facility] CLIA [id number] [address] [place] [address] [place] Platelet mean volume (Bld) [Entitic vol] 10.6 fL Normal 9.0-12.7 [facility] Comment on above: Order Comment: Speci men Type: BLOOD SPECIMEN Ordering Facility: [facility] Address: [address] [place] [address] Performed By: #### 5 8410-2 #### [facility] CLIA [id number] [address] [place] [address] [place] Platelets (Bld) [#/Vol] 154 10*3/uL Normal 150-400 [facility] Comment on above: Order Comment: Speci men Type: BLOOD SPECIMEN Ordering Facility: [facility] Address: [address] [place] [address] Result Comment: No c lot detected.Reviewed. Performed By: #### 5 8410-2 #### [facility] CLIA [id number] [address] [place] [address] [place] RBC (Bld) [#/Vol] 5.33 10*6/uL Normal 4.20-6.00 [facility] Comment on above: Order Comment: Speci men Type: BLOOD SPECIMEN Ordering Facility: [facility] Address: [address] [place] [address] Performed By: #### 5 8410-2 #### [facility] CLIA [id number] [address] [place] [address] [facility] WBC (Bld) [#/Vol] 7.50 10*3/uL Normal 3.70-11.00 [facility] Comment on above: Order Comment: Speci men Type: BLOOD SPECIMEN Ordering Facility: [facility] Address: [address] [place] [address] Performed By: #### 5 8410-2 #### [facility] CLIA [id number] [address] [place] [address] [facility] Comprehensive metabolic 2000 panelon 11-08-2024 Albumin [Mass/Vol] 3.8 g/dL Low 3.9-4.9 [facility] Comment on above: Order Comment: Speci men Type: BLOOD SPECIMEN Ordering Facility: [facility] Address: [address] [place] [address] Performed By: #### 5 7021-8 #### [facility] CLIA [id number] [address] STATES OF [facility] ALP [Catalytic activity/Vol] 77 U/L Normal 38-113 [facility] [facility] Comment on above: Order Comment: Speci men Type: BLOOD SPECIMEN Ordering Facility: [facility] Address: [address] [place] [address] Performed By: #### 5 7021-8 #### [facility] CLIA [id number] [address] [place], [place] [address] [place] [address] ALT With P-5'-P [Catalytic activity/Vol] 22 U/L Normal 10-54 [facility] Comment on above: Order Comment: Speci men Type: BLOOD SPECIMEN Ordering Facility: [facility] Address: [address] [place] [address] Performed By: #### 5 7021-8 #### [facility] CLIA [id number] [address] Anion gap [Moles/Vol] 10 mmol/L Normal 8-15 [facility] Comment on above: Order Comment: Speci men Type: BLOOD SPECIMEN Ordering Facility: [facility] Address: [address] [place] [address] Performed By: #### 5 7021-8 #### [facility] CLIA [id number] [address] [place] [address] [place] AST With P-5'-P [Catalytic activity/Vol] Normal [facility] Comment on above: Order Comment: Speci men Type: BLOOD SPECIMEN Ordering Facility: [facility] Address: [address] [place] [address] Result Comment: Unab le to assay due to interference from hemolysis. Suggest reorder as clinically indicated. Performed By: #### 5 7021-8 #### [facility] CLIA [id number] [address] [place] [address] [place] Bilirubin [Mass/Vol] 0.7 mg/dL Normal 0.2-1.3 [facility] Comment on above: Order Comment: Speci men Type: BLOOD SPECIMEN Ordering Facility: [facility] Address: [address] [place] [address] Performed By: #### 5 7021-8 #### [facility] CLIA [id number] [address] [place] [address] [place] Calcium [Mass/Vol] 9.0 mg/dL Normal 8.5-10.2 [facility] Comment on above: Order Comment: Speci men Type: BLOOD SPECIMEN Ordering Facility: [facility] Address: [address] [place] [address] Performed By: #### 5 7021-8 #### [facility] CLIA [id number] [address] [place] [address] [place] Chloride [Moles/Vol] 104 mmol/L Normal 98-107 [facility] Comment on above: Order Comment: Speci men Type: BLOOD SPECIMEN Ordering Facility: [facility] Address: [address] [place] [address] Performed By: #### 5 7021-8 #### [facility] CLIA [id number] [address] [place] [address] [place] CO2 [Moles/Vol] 25 mmol/L Normal 22-30 [facility] Comment on above: Order Comment: Eben bill Type: BLOOD SPECIMEN Ordering Facility: [facility] Address: [address] [place] [address] Performed By: #### 5 7021-8 #### [facility] CLIA [id number] [address] [place] [address] [place] Creatinine [Mass/Vol] 1.30 mg/dL High 0.73-1.22 [facility] Comment on above: Order Comment: Eben men Type: BLOOD SPECIMEN Ordering Facility: [facility] Address: [address] [place] [address] Performed By: #### 5 7021-8 #### [facility] CLIA [id number] [address] [place] [address] [place] Creatinine and Glomerular filtration rate.predicted panel (S/P/Bld) 63 mL/min/1.73m??? Normal >=60 [facility] Comment on above: Order Comment: Eben men Type: BLOOD SPECIMEN Ordering Facility: [facility] Address: [address] [place] [address] Result Comment: Dionna mated Glomerular Filtration Rate (eGFR) is calculated using the 2020 CKD-EPI creatinine equation. This equation utilizes serum creatinine, sex, and age as parameters. The creatinine assay has traceable calibration to isotope dilution-mass spectrometry. Refer to KDIGO guidelines for clinical interpretation. In patients with unstable renal function, e.g. those with acute kidney injury, the eGFR may not accurately reflect actual GFR. Performed By: #### 5 7021-8 #### [facility] CLIA [id number] [address] [place] [address] [place] Glucose [Mass/Vol] 122 mg/dL High 74-99 [facility] Comment on above: Order Comment: Eben fly Type: BLOOD SPECIMEN Ordering Facility: [facility] Address: [address] [place] [address] Result Comment: The [place] Diabetes Association (ADA) provides guidance for cutoff values for fasting glucose and random glucose. The ADA defines fasting as no caloric intake for at least 8 hours. Fasting plasma glucose results between 100 to 125 mg/dL indicate increased risk for diabetes (prediabetes). Fasting plasma glucose results greater than or equal to 126 mg/dL meet the criteria for diagnosis of diabetes. In the absence of unequivocal hyperglycemia, results should be confirmed by repeat testing. In a patient with classic symptoms of hyperglycemia or hyperglycemic crisis, random plasma glucose results greater than or equal to 200 mg/dL meet the criteria for diagnosis of diabetes. Reference: Standards of Medical Care in Diabetes 2016, [place] [employer] Association. Diabetes Care. 2016.39(Suppl 1). Performed By: #### 5 7021-8 #### [facility] CLIA [id number] [address] [place] [address] [place] Potassium [Moles/Vol] 4.4 mmol/L Normal 3.7-5.1 [facility] Comment on above: Order Comment: Eben bill Type: BLOOD SPECIMEN Ordering Facility: [facility] Address: [address] [place] [address] Performed By: #### 5 7021-8 #### [facility] CLIA [id number] [address] [place] [address] [place] Protein [Mass/Vol] 6.9 g/dL Normal 6.3-8.0 [facility] Comment on above: Order Comment: Eben bill Type: BLOOD SPECIMEN Ordering Facility: [facility] Address: [address] [place] [address] Performed By: #### 5 7021-8 #### [facility] CLIA [id number] [address] [place] [address] [place] Sodium [Moles/Vol] 139 mmol/L Normal 136-144 [facility] Comment on above: Order Comment: Eben bill Type: BLOOD SPECIMEN Ordering Facility: [facility] Address: [address] [place] [address] Performed By: #### 5 7021-8 #### [facility] CLIA [id number] [address] [place] [address] [place] Urea nitrogen [Mass/Vol] 20 mg/dL Normal 9-24 [facility] Comment on above: Order Comment: Eben bill Type: BLOOD SPECIMEN Ordering Facility: [facility] Address: [address] [place] [address] Performed By: #### 5 7021-8 #### [facility] CLIA [id number] [address] [place] [address] [facility] Lipid 1996 panelon 5 Cholesterol [Mass/Vol] 177 mg/dL Normal <200 [facility] Comment on above: Order Comment: Eben bill Type: BLOOD SPECIMEN Ordering Facility: [facility] Address: [address] [place] [address] Result Comment: <200 mg/dL, Desirable 200-239 mg/dL, Borderline high >239 mg/dL, High Performed By: #### H STNT #### [facility] CLIA [id number] [address] [place], [place] [id number] [place] [address] [place] Cholesterol in HDL [Mass/Vol] 34 mg/dL Low >39 [facility] Comment on above: Order Comment: Eben bill Type: BLOOD SPECIMEN Ordering Facility: [facility] Address: [address] [place] [address] Result Comment: 40-5 9 mg/dL, Acceptable >59 mg/dL, High: Negative risk factor for coronary heart disease <40 mg/dL, Low: Positive risk factor for coronary heart disease Performed By: #### H STNT #### [facility] CLIA [id number] [address] [place], [place] [id number] [place] [address] [place] Cholesterol in LDL [Mass/Vol] 105 mg/dL High <100 [facility] Comment on above: Order Comment: Eben bill Type: BLOOD SPECIMEN Ordering Facility: [facility] Address: [address] [place] [address] Result Comment: <100 mg/dL, Optimal 100-129 mg/dL, Near optimal/above optimal 130-159 mg/dL, Borderline high 160-189 mg/dL, High >189 mg/dL, Very high Secondary prevention optimal LDL Cholesterol levels are recommended to be < 70 mg/dL Performed By: #### H STNT #### [facility] CLIA [id number] [address] [place], [place] [id number] [place] [address] [place] Cholesterol in LDL/Cholesterol in HDL [Mass ratio] 3.09 {ratio} High <2.54 [facility] Comment on above: Order Comment: Eben bill Type: BLOOD SPECIMEN Ordering Facility: [facility] Address: [address] [place] [address] Result Comment: Refe rence: 1. National Cholesterol Education Program ATP III Guideline At-A-Glance Quick Desk Reference: National Heart, Lung, and Blood Ward. National Institutes of Health. 2001: NIH Publication No. 01-3305. 2. An International Atherosclerosis Society position paper: global recommendations for the management of dyslipidemia: executive summary, Atherosclerosis. 2014: 232(2):410-413. Performed By: #### H STNT #### [facility] CLIA [id number] [address] [place] [address] Cholesterol in VLDL [Mass/Vol] 38 mg/dL High <30 [facility] Comment on above: Order Comment: Eben bill Type: BLOOD SPECIMEN Ordering Facility: [facility] Address: [address] [place] [address] Performed By: #### H STNT #### [facility] CLIA [id number] [address] [place] [address] [place] Cholesterol non HDL [Mass/Vol] 143 mg/dL High <130 [facility] Comment on above: Order Comment: Eben bill Type: BLOOD SPECIMEN Ordering Facility: [facility] Address: [address] [place] [address] Result Comment: <130 mg/dL, Optimal 130-159 mg/dL, Near optimal/above optimal 160-189 mg/dL, Borderline high 190-219 mg/dL, High >219 mg/dL, Very high Secondary prevention optimal non HDL Cholesterol levels are recommended to be <100 mg/dL Performed By: #### H STNT #### [facility] CLIA [id number] [address] [place] [id number] [facility] [place] Cholesterol.total /Cholesterol in HDL [Mass ratio] 5.21 {ratio} High <5.10 [facility] Comment on above: Order Comment: Speci men Type: BLOOD SPECIMEN Ordering Facility: [facility] Address: [address] [place] [address] Performed By: #### H STNT #### [facility] CLIA [id number] [address] [place] [address] [facility] FASTING TIME 12 hrs Normal [facility] Comment on above: Order Comment: Speci men Type: BLOOD SPECIMEN Ordering Facility: [facility] Address: [address] [place] [address] Performed By: #### H STNT #### [facility] CLIA [id number] [address] [place] [id number] [place] Triglyceride [Mass/Vol] 191 mg/dL High <150 [facility] Comment on above: Order Comment: Speci men Type: BLOOD SPECIMEN Ordering Facility: [facility] Address: [address] [place] [address] Result Comment: <150 mg/dL, Normal 150-199 mg/dL, Borderline high 200-499 mg/dL, High >499 mg/dL, Very high Performed By: #### H STNT #### [facility] CLIA [id number] [address] [place] [address] [place] CBC W Auto Differential pane l (Bld)on 10-28-2024 Basophils (Bld) [#/Vol] 0.03 10*3/uL Normal <0.11 [facility] Comment on above: Order Comment: Speci men Type: BLOOD SPECIMEN Ordering Facility: [facility] Address: [address] [place] [address] Performed By: #### 5 7021-8 #### [facility] CLIA [id number] [address] [place] [address] [place] Basophils/100 WBC (Bld) 0.4 % Normal [facility] Comment on above: Order Comment: Speci men Type: BLOOD SPECIMEN Ordering Facility: [facility] Address: [address] [place] [address] Performed By: #### 5 7021-8 #### [facility] CLIA [id number] [address] [place] [address] [facility] [place] Differential cell count method Nom (Bld) Auto Normal [facility] Comment on above: Order Comment: Speci men Type: BLOOD SPECIMEN Ordering Facility: [facility] Address: [address] [place] [address] Performed By: #### 5 7021-8 #### [facility] CLIA [id number] [address] [place] [address] [place] Eosinophils (Bld) [#/Vol] 0.18 10*3/uL Normal <0.46 [facility] Comment on above: Order Comment: Speci men Type: BLOOD SPECIMEN Ordering Facility: [facility] Address: [address] [place] [address] Performed By: #### 5 7021-8 #### [facility] CLIA [id number] [address] Eosinophils/100 WBC (Bld) 2.4 % Normal [facility] Comment on above: Order Comment: Speci men Type: BLOOD SPECIMEN Ordering Facility: [facility] Address: [address] [place] [address] Performed By: #### 5 7021-8 #### [facility] CLIA [id number] [address] OF [place] Erythrocyte distribution width (RBC) [Ratio] 12.9 % Normal 11.5-15.0 [facility] Comment on above: Order Comment: Speci men Type: BLOOD SPECIMEN Ordering Facility: [facility] Address: [address] [place] [address] Performed By: #### 5 7021-8 #### [facility] CLIA [id number] [address] [place] [id number] [facility] Hematocrit (Bld) [Volume fraction] 50.1 % Normal 39.0-51.0 [facility] Comment on above: Order Comment: Speci men Type: BLOOD SPECIMEN Ordering Facility: [facility] Address: [address] [place] [address] Performed By: #### 5 7021-8 #### [facility] CLIA [id number] [address] [place] [address] [place] Hemoglobin (Bld) [Mass/Vol] 15.8 g/dL Normal 13.0-17.0 [facility] Comment on above: Order Comment: Speci men Type: BLOOD SPECIMEN Ordering Facility: [facility] Address: [address] [place] [address] Performed By: #### 5 7021-8 #### [facility] CLIA [id number] [address] [place] [address] [place] Immature granulocytes (Bld) [#/Vol] 10*3/uL Normal <0.10 [facility] Comment on above: Order Comment: Speci men Type: BLOOD SPECIMEN Ordering Facility: [facility] Address: [address] [place] [address] Performed By: #### 5 7021-8 #### [facility] CLIA [id number] [address] [place] [address] [place] Immature granulocytes/100 WBC (Bld) 0.3 % Normal [facility] Comment on above: Order Comment: Speci men Type: BLOOD SPECIMEN Ordering Facility: [facility] Address: [address] [place] [address] Performed By: #### 5 7021-8 #### [facility] CLIA [id number] [address] [place] [address] [place] Lymphocytes (Bld) [#/Vol] 1.00 10*3/uL Normal 1.00-4.00 [facility] Comment on above: Order Comment: Speci men Type: BLOOD SPECIMEN Ordering Facility: [facility] Address: [address] [place] [address] Performed By: #### 5 7021-8 #### [facility] CLIA [id number] [address] [place] [address] [place] Lymphocytes/100 WBC (Bld) 13.4 % Normal [facility] Comment on above: Order Comment: Speci men Type: BLOOD SPECIMEN Ordering Facility: [facility] Address: [address] [place] [address] Performed By: #### 5 7021-8 #### [facility] CLIA [id number] [address] [place] [address] [place] [facility] MCH (RBC) [Entitic mass] 29.7 pg Normal 26.0-34.0 [facility] Comment on above: Order Comment: Speci men Type: BLOOD SPECIMEN Ordering Facility: [facility] Address: [address] [place] [address] Performed By: #### 5 7021-8 #### [facility] CLIA [id number] [address] [place], [place] [address] [place] [address] [place] MCHC (RBC) [Mass/Vol] 31.5 g/dL Normal 30.5-36.0 [facility] Comment on above: Order Comment: Speci men Type: BLOOD SPECIMEN Ordering Facility: [facility] Address: [address] [place] [address] Performed By: #### 5 7021-8 #### [facility] CLIA [id number] [address] [place] MCV (RBC) [Entitic vol] 94.2 fL Normal 80.0-100.0 [facility] Comment on above: Order Comment: Speci men Type: BLOOD SPECIMEN Ordering Facility: [facility] Address: [address] [place] [address] Performed By: #### 5 7021-8 #### [facility] CLIA [id number] [address] [place] [address] [facility] Monocytes (Bld) [#/Vol] 0.53 10*3/uL Normal <0.87 [facility] Comment on above: Order Comment: Speci men Type: BLOOD SPECIMEN Ordering Facility: [facility] Address: [address] [place] [address] Performed By: #### 5 7021-8 #### [facility] CLIA [id number] [address] [place] [address] [place] Monocytes/100 WBC (Bld) 7.1 % Normal [facility] Comment on above: Order Comment: Speci men Type: BLOOD SPECIMEN Ordering Facility: [facility] Address: [address] [place] [address] Performed By: #### 5 7021-8 #### [facility] CLIA [id number] [address] [place] [address] [place] Neutrophils (Bld) [#/Vol] 5.68 10*3/uL Normal 1.45-7.50 [facility] Comment on above: Order Comment: Speci men Type: BLOOD SPECIMEN Ordering Facility: [facility] Address: [address] [place] [address] Performed By: #### 5 7021-8 #### [facility] CLIA [id number] [address] [place] [address] [place] Neutrophils/100 WBC (Bld) 76.4 % Normal [facility] Comment on above: Order Comment: Speci men Type: BLOOD SPECIMEN Ordering Facility: [facility] Address: [address] [place] [address] Performed By: #### 5 7021-8 #### [facility] CLIA [id number] [address] [place] [address] [place] Nucleated RBC (Bld) [#/Vol] Normal [facility] Comment on above: Order Comment: Speci men Type: BLOOD SPECIMEN Ordering Facility: [facility] Address: [address] [place] [address] Performed By: #### 5 7021-8 #### [facility] CLIA [id number] [address] [place] [address] [place] Nucleated RBC/100 WBC (Bld) [Ratio] Normal [facility] Comment on above: Order Comment: Speci men Type: BLOOD SPECIMEN Ordering Facility: [facility] Address: [address] [place] [address] Performed By: #### 5 7021-8 #### [facility] CLIA [id number] [address] [place] [address] [place] Platelet mean volume (Bld) [Entitic vol] 9.0 fL Normal 9.0-12.7 [facility] Comment on above: Order Comment: Speci men Type: BLOOD SPECIMEN Ordering Facility: [facility] Address: [address] [place] [address] Performed By: #### 5 7021-8 #### [facility] CLIA [id number] [address] [place] [address] [place] Platelets (Bld) [#/Vol] 175 10*3/uL Normal 150-400 [facility] Comment on above: Order Comment: Speci men Type: BLOOD SPECIMEN Ordering Facility: [facility] Address: [address] [place] [address] Performed By: #### 5 7021-8 #### [facility] CLIA [id number] [address] [place] [address] [place] RBC (Bld) [#/Vol] 5.32 10*6/uL Normal 4.20-6.00 [facility] Comment on above: Order Comment: Speci men Type: BLOOD SPECIMEN Ordering Facility: [facility] Address: [address] [place] [address] Performed By: #### 5 7021-8 #### [facility] CLIA [id number] [address] [place] [address] [place] WBC (Bld) [#/Vol] 7.44 10*3/uL Normal 3.70-11.00 [facility] Comment on above: Order Comment: Speci men Type: BLOOD SPECIMEN Ordering Facility: [facility] Address: [address] [place] [address] Performed By: #### 5 7021-8 #### [facility] CLIA [id number] [address] [place] [address] [facility] [place] Comprehensive metabolic 2000 panelon 10-28-2024 Albumin [Mass/Vol] 4.0 g/dL Normal 3.9-4.9 [facility] Comment on above: Order Comment: Speci men Type: BLOOD SPECIMEN Ordering Facility: [facility] Address: [address] [place] [address] Performed By: #### 5 7021-8 #### [facility] CLIA [id number] [address] [place] [address] [place] ALP [Catalytic activity/Vol] 79 U/L Normal 38-113 [facility] Comment on above: Order Comment: Speci men Type: BLOOD SPECIMEN Ordering Facility: [facility] Address: [address] [place] [address] Performed By: #### 5 7021-8 #### [facility] CLIA [id number] [address] [place] [address] [place] ALT With P-5'-P [Catalytic activity/Vol] 22 U/L Normal 10-54 [facility] Comment on above: Order Comment: Speci men Type: BLOOD SPECIMEN Ordering Facility: [facility] Address: [address] [place] [address] Performed By: #### 5 7021-8 #### [facility] CLIA [id number] [address] [place] [address] [place] Anion gap [Moles/Vol] 9 mmol/L Normal 8-15 [facility] Comment on above: Order Comment: Speci men Type: BLOOD SPECIMEN Ordering Facility: [facility] Address: [address] [place] [address] Performed By: #### 5 7021-8 #### [facility] CLIA [id number] [address] [place] [address] [place] AST With P-5'-P [Catalytic activity/Vol] Normal [facility] Comment on above: Order Comment: Speci men Type: BLOOD SPECIMEN Ordering Facility: [facility] Address: [address] [place] [address] Result Comment: Unab le to assay due to interference from hemolysis. Suggest reorder as clinically indicated. Performed By: #### 5 7021-8 #### [facility] CLIA [id number] [address] [facility] [place] [place] [address] [place] Bilirubin [Mass/Vol] 1.5 mg/dL High 0.2-1.3 [facility] Comment on above: Order Comment: Speci men Type: BLOOD SPECIMEN Ordering Facility: [facility] Address: [address] [place] [address] Performed By: #### 5 7021-8 #### [facility] CLIA [id number] [address] [facility] [place] [place] [address] [place] Calcium [Mass/Vol] 9.2 mg/dL Normal 8.5-10.2 [facility] Comment on above: Order Comment: Speci men Type: BLOOD SPECIMEN Ordering Facility: [facility] Address: [address] [place] [address] Performed By: #### 5 7021-8 #### [facility] CLIA [id number] [address] [place] [address] [place] Chloride [Moles/Vol] 98 mmol/L Normal 98-107 [facility] Comment on above: Order Comment: Speci men Type: BLOOD SPECIMEN Ordering Facility: [facility] Address: [address] [place] [address] Performed By: #### 5 7021-8 #### [facility] CLIA [id number] [address] [place] [address] [place] CO2 [Moles/Vol] 28 mmol/L Normal 22-30 [facility] Comment on above: Order Comment: Speci men Type: BLOOD SPECIMEN Ordering Facility: [facility] Address: [address] [place] [address] Performed By: #### 5 7021-8 #### [facility] CLIA [id number] [address] [place] [address] [place] Creatinine [Mass/Vol] 1.24 mg/dL High 0.73-1.22 [facility] Comment on above: Order Comment: Speci men Type: BLOOD SPECIMEN Ordering Facility: [facility] Address: [address] [place] [address] Performed By: #### 5 7021-8 #### [facility] CLIA [id number] [address] [place], [place] [id number] [place] Creatinine and Glomerular filtration rate.predicted panel (S/P/Bld) 67 mL/min/1.73m??? Normal >=60 [facility] Comment on above: Order Comment: Eben bill Type: BLOOD SPECIMEN Ordering Facility: [facility] Address: [address] [place] [address] Result Comment: Dionna mated Glomerular Filtration Rate (eGFR) is calculated using the 2020 CKD-EPI creatinine equation. This equation utilizes serum creatinine, sex, and age as parameters. The creatinine assay has traceable calibration to isotope dilution-mass spectrometry. Refer to KDIGO guidelines for clinical interpretation. In patients with unstable renal function, e.g. those with acute kidney injury, the eGFR may not accurately reflect actual GFR. Performed By: #### 5 7021-8 #### [facility] CLIA [id number] [address] [place], [place] [id number] [place] Glucose [Mass/Vol] 151 mg/dL High 74-99 [facility] Comment on above: Order Comment: Eben bill Type: BLOOD SPECIMEN Ordering Facility: [facility] Address: [address] [place] [address] Result Comment: The [place] Diabetes Association (ADA) provides guidance for cutoff values for fasting glucose and random glucose. The ADA defines fasting as no caloric intake for at least 8 hours. Fasting plasma glucose results between 100 to 125 mg/dL indicate increased risk for diabetes (prediabetes). Fasting plasma glucose results greater than or equal to 126 mg/dL meet the criteria for diagnosis of diabetes. In the absence of unequivocal hyperglycemia, results should be confirmed by repeat testing. In a patient with classic symptoms of hyperglycemia or hyperglycemic crisis, random plasma glucose results greater than or equal to 200 mg/dL meet the criteria for diagnosis of diabetes. Reference: Standards of Medical Care in Diabetes 2016, [place] [employer] Association. Diabetes Care. 2016.39(Suppl 1). Performed By: #### 5 7021-8 #### [facility] CLIA [id number] [address] [place] [address] [place] Potassium [Moles/Vol] 4.3 mmol/L Normal 3.7-5.1 [facility] Comment on above: Order Comment: Speci men Type: BLOOD SPECIMEN Ordering Facility: [facility] Address: [address] [place] [address] Performed By: #### 5 7021-8 #### [facility] CLIA [id number] [address] [place] [address] [place] Protein [Mass/Vol] 7.1 g/dL Normal 6.3-8.0 [facility] Comment on above: Order Comment: Speci men Type: BLOOD SPECIMEN Ordering Facility: [facility] Address: [address] [place] [address] Performed By: #### 5 7021-8 #### [facility] CLIA [id number] [address] [place] [address] [place] Sodium [Moles/Vol] 135 mmol/L Low 136-144 [facility] Comment on above: Order Comment: Speci men Type: BLOOD SPECIMEN Ordering Facility: [facility] Address: [address] [place] [address] Performed By: #### 5 7021-8 #### [facility] CLIA [id number] [address] [place] [address] [place] Urea nitrogen [Mass/Vol] 16 mg/dL Normal 9-24 [facility] Comment on above: Order Comment: Speci men Type: BLOOD SPECIMEN Ordering Facility: [facility] Address: [address] [place] [address] Performed By: #### 5 7021-8 #### [facility] CLIA [id number] [address] [place] [address] [place] ECG COMPLETEon 10-28-2024 ECG COMPLETE Ventricular Rate : 8 7 BPM Atrial Rate : 87 BPM P-R Interval : 208 ms QRS Duration : 94 ms Q-T Interval : 368 ms QTC Calculation(Bazett) : 442 ms Calculated P [place] : 45 degrees Calculated R [place] : -14 degrees Calculated T [place] : 134 degrees NORMAL SINUS RHYTHM MINIMAL VOLTAGE CRITERIA FOR LVH, MAY BE NORMAL VARIANT ( R in aVL ) T WAVE ABNORMALITY, CONSIDER LATERAL ISCHEMIA ABNORMAL ECG Confirmed by MD ASCENCIO CANDACE ([id number]) on 10/28/2024 6:25:59 PM NAME : NORMA SINGER PID : [id number] : 1965 Gender : Male Race : ORD : [id number] Procedure Date : Oct 28 2024 18:11:46 Edit Date : Oct 28 2024 18:26:03 Diagnosis: NORMAL SINUS RHYTHM MINIMAL VOLTAGE CRITERIA FOR LVH, MAY BE NORMAL VARIANT ( R in aVL ) T WAVE ABNORMALITY, CONSIDER LATERAL ISCHEMIA ABNORMAL ECG Confirmed by MD ASCENCIO CANDACE ([id number]) on 10/28/2024 6:25:59 PM Test Reason : Chest Pain Location : 191 : [facility] ED Overread By : MD ASCENCIO CANDACE Edited By : MD ASCENCIO CANDACE Referred By : , Acquired by : SD MUNIZ Normal [facility] ED NOTEon 10-28-2024 ED NOTE HNO ID: [id number] Author: MARCIO MOSQUEDA RN Service: ? Author Type: Registered Nurse Type: ED Notes Filed: 10/29/2024 12:00 Note Text: Patient Call Back Information How are you doing ? better Did we appropriately manage your pain? Yes Did you understand your discharge instructions? Yes Did you get your prescriptions filled? Were you able to make a follow-up appointment with your physician? No Were you comfortable during your stay here? Yes Did a member of the ER nursing team round on you during your visit? Yes You will receive a patient satisfaction survey in the mail in the nest 2 weeks, please take the time to fill out the survey as your input from your ER visit is very important to us. Yes Can we do anything else to help you? No Normal [facility] ED NOTE HNO ID: [id number] Author: MITRA ZAMUDIO RN Service: ? Author Type: Registered Nurse Type: ED Notes Filed: 10/28/2024 17:34 Note Text: Pt comes to ED c/o increased SOB and cough for 2-3 days. Pt has left lower lobe pain that is 3/10. He is AANDOx3, BP elevated other vss. Will continue to monitor. Normal [facility] ED PROV NOTEon 10-28-2024 ED PROV NOTE HNO ID: [id number] Author: EMERALD ASCENCIO MD Service: Emergency Medicine Author Type: Physician Type: ED Provider Notes Filed: 10/28/2024 21:22 Note Text: ED Provider Note Patient Name: Norma Singer : 1965 SERVICE DATE: 10/28/24 History Patient presents with: Shortness of Breath Cough HPI 59 year old with PMH: GERD HFrEF (46% EF) - no longer on lasix PRERNA GERD HTN HLD CKD Hx PE/Eliquis - reports adherence Here w concern for dyspnea, cough x 2-3 days. Productive cough, intermittent nonexertional L lateral chest pain - comes and goes at rest, not worse w deep breathing or movement. Feels as though he is wheezing at night. Hx chronic LE edema/unchanged. No anterior chest pain. +dyspnea with ambulation, +coughing fits. No ill contacts. No fever, +chills. No NVD. +URI symptoms/myalgias. No recent admission or antibiotics. No recent med changes. PAST MEDICAL HISTORY Diagnosis Date Arthritis Back pain Chronic congestive heart failure (HCC) 10/23/2023 GERD (gastroesophageal reflux disease) occasional History of transfusion Hypertension Obesity Obstructive sleep apnea 10/26/2012 Severe;Pt unable to tolerate wearing machine Pulmonary embolism, bilateral (HCC) 06/16/2022 Renal calculus 10/26/2010 Seasonal allergies Stage 3a chronic kidney disease (HCC) Stasis edema with recurrent cellulitis PAST SURGICAL HISTORY Procedure Laterality Date PROCEDURE 05/25/2022 IANDD back of left leg FAMILY HISTORY Problem Relation Age of Onset Cancer Mother pancreatic- at age 81 Diabetes Mother Hypertension Mother Thyroid Mother Cancer Father lung cancer- at age 72 Alcohol/Drug Brother drugs and alcohol Alcohol/Drug Sister drugs and alcohol Alcohol/Drug Sister drugs and alcohol Alcohol/Drug Sister drugs and alcohol Breast Cancer Maternal Aunt Social History Tobacco Use Smoking status: Former Current packs/day: 0.00 Average packs/day: 1 pack/day for 4.0 years (4.0 ttl pk-yrs) Types: Cigarettes Start date: 05/11/1969 Quit date: 05/11/1973 Years since quittin.5 Smokeless tobacco: Never Vaping Use Vaping status: Never Used Substance and Sexual Activity Alcohol use: No Comment: no alcohol since 17years old, strong family history Drug use: No Comment: Former use Sexual activity: Yes Partners: Female ALLERGIES Allergen Reactions Cat Dander Intolerance Hay Fever [Seasonal* Unknown Review of Systems Constitutional: Positive for chills. Negative for fever. HENT: Positive for congestion. Negative for sore throat. Respiratory: Positive for cough and shortness of breath. Cardiovascular: Negative for chest pain. Gastrointestinal: Negative for nausea and vomiting. Genitourinary: Negative for dysuria. Musculoskeletal: Positive for myalgias. Skin: Negative for rash. Neurological: Negative for headaches. Physical Exam Vitals [10/28/24 1730] BP Pulse Temp Temp src Resp SpO2 Weight Height 192/92 88 37.3 ?C (99.1 ?F) Temporal 24 (!) 93 % (!) 172.8 kg (381 lb) -- Physical Exam Vital signs reviewed Gen: well appearing, well hydrated HEENT: NAT, EOMI, MMM, atraumatic/normocephalic Neck: full ROM CV: RRR, no murmurs, DP/PT/radials intact and equal Resp: lungs clear/no respiratory distress, no chest wall ttp Abd: soft NT ND, no masses Back: normal inspection : deferred MSK: full ROM all 4 extremities, laure LE nonpitting edema without erythema or asymmetry Neuro: awake/alert, nl strength/sensation, nl gait and speech Skin: no rashes Psych: nl affect/cooperative Diagnostic Testing ED Labs Ordered and Reviewed - No data to display Procedures ED Course / Clinical Impression ED Course as of 10/28/242113 Emerald Ascencio's Documentation ThuOct 28, 2024 190 Baseline O2 saturations per pt report 95% 1903 FRANKI High Sensitivity(!): 15 C/w prior - very atypical symptoms for ACS. No indication to cycle troponins at this time 2033 Ambulatory, no dyspnea Clinical Impressions as of 10/28/242113 Acute cough Atypical chest pain MDM / Disposition / Plan MDM 59 year old here w a few days of URI symptoms, cough. Afebrile. Baseline O2 saturation 94-95% on arrival. No resp distress. Nontoxic appearing. EKG stable TW changes in I, AVL. No new ischemic changes. Exam and history not c/w ACS - intermittent nonexertional symptoms with cough. Chronic LE edema/unchanged, not new clinical hypervolemia. BNP 700s. CXR no pulm edema or PNA. Neg viral panel, stable renal function. No leukocytosis or anemia. Overall, workup is very reassuring. We discussed that exam is snapshot in time and that if symptoms worsen or if he develops new symptoms he will return to ED. Could be another viral process, early CHF or PNA. He is tolerating PO without difficulty, ambulatory here without distress. RTED instructions discussed. PCP followup. Pt was given opportuni (more content not included)... Normal [facility] HIGH SENSITIVITY TROPONIN To n 10-28-2024 Troponin T.cardiac High sensitivity method [Mass/Vol] 15 ng/L High <12 [facility] Comment on above: Order Comment: Eben bill Type: BLOOD SPECIMEN Ordering Facility: [facility] Address: [address] [place] [address] Performed By: #### H STNT #### [facility] CLIA [id number] [address] [place] [address] [place] Magnesium SerPl-ncon 10-28 Magnesium [Mass/Vol] 2.2 mg/dL Normal 1.7-2.3 [facility] Comment on above: Order Comment: Eben [facility] Type: BLOOD SPECIMEN Ordering Facility: [facility] Address: [address] [place] [address] Performed By: #### 5 7021-8 #### [facility] CLIA [id number] [address] [place] [address] [place] NT-proBNP SerPl-ncon 10-28 Natriuretic peptide.B prohormone N-Terminal [Mass/Vol] 719 pg/mL High <125 [facility] Comment on above: Order Comment: Dedrick fly Type: BLOOD SPECIMEN Ordering Facility: [facility] Address: [address] [place] [address] Performed By: #### 5 7021-8 #### [facility] CLIA [id number] [address] [place] [address] [place] XR CHEST 2V FRONTAL/LATon XR CHEST 2V FRONTAL/LAT * * *Final Report* * * DATE OF EXAM: Oct 28 2024 6:35PM LDX 5291 - XR CHEST 2V FRONTAL/LAT / PROCEDURE REASON: Cough * * * * Physician Interpretation * * * * EXAMINATION: CHEST RADIOGRAPH (2 VIEW FRONTAL and LATERAL) CLINICAL HISTORY: Cough MQ: [id number] EXAM DATE/TIME: 10/28/2024 6:35 PM COMPARISON: 09/23/2023 RESULT: Lines, tubes, and devices: None. Lungs and pleura: No consolidation. No lung mass. No pleural effusion. No pneumothorax. Cardiomediastinal silhouette: Normal cardiomediastinal silhouette. Bones and soft tissues: Unremarkable. IMPRESSION: No acute radiographic abnormality. Delivery Helper: TYRONE Transcribe Date/Time: Oct 28 2024 7:28P Dictated by : ARCADIO ANTUNEZ MD This examination was interpreted and the report reviewed and electronically signed by: ARCADIO ANTUNEZ MD on Oct 28 2024 7:28PM EST [id number] [facility] NORMA SINGER ([id number]) 1965 M Date Time Provider Department 10/04/24 EDGAR ALMARAZ During your visit today, we recorded the following information about you: Lluvia Lagos LPN 10/04/2024 7:25 AM Signed Last seen 01/28/2024. Please call patient with over due 6 month appointment. Thank you! TRINITY CarranzaJune10/04/2024 9:18 AM Signed Call placed to patient scheduled with Dr. Almaraz for 11-10-24 at 2 pm in [place]. Thanks Lili Mora Allergies As of Date: 10/04/2024 Noted Allergy Reaction CAT DANDER 09/29/2022 5 - Intolerance HAY FEVER (SEASONAL ALLERGIES) 05/11/2013 16 - Unknown Date Reviewed: 06/26/2024 Reviewed by: Marcio Vasquez APRN.BUSINESS SUPPORT ASSOCIATE - Fully Assessed Reason for Visit: Appointment [186] Prescriptions as of 10/04/2024 - FARXIGA 10 mg tablet TAKE 0.5 TABLETS BY MOUTH DAILY WITH BREAKFAST. - rosuvastatin (CRESTOR) 20 mg tablet TAKE 1 TABLET BY MOUTH EVERYDAY AT BEDTIME - losartan (COZAAR) 100 mg tablet Take 1 tablet by mouth every afternoon. - metoprolol succinate ER (TOPROL XL) 100 mg Take 1 tablet by mouth every afternoon. - calcipotriene (DOVONEX) 0.005 % oint Apply 1 application to affected area once daily. For the lower legs. - ammonium lactate (LAC-HYDRIN) 12 % cream Apply to affected area as needed. - hydrALAZINE (APRESOLINE) 10 mg tablet Take 1 tablet by mouth three times a day. - amLODIPine (NORVASC) 10 mg tablet take 1 tablet by mouth every day - furosemide (LASIX) 40 mg tablet Take 1 tablet by mouth every afternoon. - potassium chloride ER (KLOR-CON M20) 20 mEq tablet TAKE 2 TABLETS BY MOUTH ONCE DAILY WITH FUROSEMIDE. - acetaminophen (TYLENOL) 500 mg tablet Take 2 tablets by mouth every 6 hours as needed for pain. Problem List As Of Date 10/04/2024 Noted Resolved Hypertension [I10] Stasis edema [I87.309] PRERNA (obstructive sleep apnea) [G47.33] Seasonal allergies [J30.2] GERD (gastroesophageal reflux disease) [K21.9] Renal calculus [N20.0] BMI 45.0-49.9, adult (HCC) [Z68.42] Rhinitis [J31.0] 09/07/2013 Back pain [M54.9] Lymphedema [I89.0] 02/09/2015 Elevated serum creatinine [R79.89] 12/14/2020 Hyperlipidemia, mixed [E78.2] 12/14/2020 Bilateral leg edema [R60.0] 04/16/2021 Stage 3a chronic kidney disease (HCC) [N18.31] Left Lower Leg Cellulitis [L03.90] 06/04/2022 06/09/2022 Left Lower Leg Wound Infection [T14.8XXA, L08.9]06/04/2022 Chronic venous stasis LEs [I87.8] 06/05/2022 Pulmonary embolism, bilateral (HCC) [I26.99] 06/16/2022 09/30/2023 Right leg DVT (HCC) [I82.401] 06/25/2022 Choledocholithiasis [K80.50] 06/25/2022 Ulcer of lower limb, left, limited to breakdown*11/12/2022 Chronic venous insufficiency [I87.2] 11/12/2022 Leg ulcer, left, with fat layer exposed (HCC) [*03/10/2023 History of pulmonary embolism [Z86.711] 09/30/2023 Chronic congestive heart failure (HCC) [I50.9] 10/23/2023 Chest pain, pleuritic [R07.81] 12/31/2023 Hypoxia [R09.02] 12/31/2023 Heart failure with mid-range ejection fraction *01/28/2024 Encounter Status:Closed by LLUVIA LAGOS on 10/04/24 [facility] CNOVon 05-24-2024 [facility] Office Visit (SERGE ) LUCRECIANORMA M ([id number]) 1965 M Date Time Provider Department 05/24/24 1:00 PM FILIPE MADSEN During your visit today, we recorded the following information about you: Filipe Madsen MD 05/24/2024 1:24 PM Signed Department of Dermatology Filipe Madsen MD 05/24/2024 Last visit in Dermatology: 02/24/2024 Objective/Assessment/Plan 1. Inflamed seborrheic keratosis (5) Left [place], Right Supraclavicular Area (4) Inflamed, erythematous, hyperkeratotic, stuck-on papule. Treated with liquid nitrogen as noted. A discussion of the procedure, the indication, alternatives, and risks/expectations were discussed. These included the risks of redness, prolonged wound healing, blistering, and skin discoloration. The patient desires to proceed. CRYOTHERAPY SKIN LESION - Left Scient[place], Right Supraclavicular Area (4) Complexity: simple Destruction method: cryotherapy Informed consent: discussed and consent obtained Informed consent comment: The risks of hypopigmentation, tenderness, and slow wound healing discussed. Lesion destroyed using liquid nitrogen: Yes Region frozen until ice ball extended beyond lesion: Yes Cryotherapy cycles: 2 Outcome: patient tolerated procedure well with no complications Post-procedure details: wound care instructions given 2. AK (actinic keratosis) (6) Left Forearm - Posterior (5), Left Hand - Posterior Erythematous, hyperkeratotic papule without induration. Treated with liquid nitrogen as noted. A discussion of the procedure, the indication, alternatives, and risks/expectations were discussed. These included the risks of redness, prolonged wound healing, blistering, and skin discoloration. The patient desires to proceed. CRYOTHERAPY SKIN LESION - Left Forearm - Posterior (5), Left Hand - Posterior Complexity: simple Destruction method: cryotherapy Informed consent: discussed and consent obtained Informed consent comment: The risks of hypopigmentation, tenderness, and slow wound healing discussed. Lesion destroyed using liquid nitrogen: Yes Region frozen until ice ball extended beyond lesion: Yes Cryotherapy cycles: 2 Outcome: patient tolerated procedure well with no complications Post-procedure details: wound care instructions given 3. Xerosis cutis (4) Left Lower Leg - Anterior, Left Lower Leg - Posterior, Right Lower Leg - Anterior, Right Lower Leg - Posterior Xerosis complicating bilateral lower extremities edema. Continue AmLactin as before. Related Medications ammonium lactate (LAC-HYDRIN) 12 % cream Apply to affected area as needed. 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 Discussed treatment options. Add calcipotriene once daily to the regimen. We discussed the risks, benefits, alternatives, and expected outcomes concerning the prescribed medications. We answered any patient questions regarding these medications and reviewed their use. Follow-up as noted below or as needed. Chief Complaint: Patient presents with: Actinic Keratosis Subjective and Objective No data to display HPI: Norma Singer is a 58 year old male who presents for: Follow-up: Inflamed seborrheic keratosis/actinic keratosis Location: bilateral legs/arms, neck and back Symptoms/Course: Improving Current Treatment: LN2 at jerod Xerosis cutis Location: bilateral lower legs- anterior Symptoms/Course: Improving Current Treatment: ammonium lactate (LAC-HYDRIN) 12 % cream as needed Past medical history is reviewed. Medication list is reviewed. Physical Exam included: As noted. Intake completed by: Rebekah Chamberlain MA Attending signature: Filipe Madsen MD This note is completed at 1:24 PM on 05/24/2024 and reflects the services provided at the time of the appointment. I agree with the Chief Complaint, ROS, and Past Histories independently gathered by the clinical customer support technician. Filipe Madsen MD 05/24/2024 1:19 PM Signed SKIN CARE AFTER CRYOSURGERY The skin's response to cryosurgery (freezing) can be mild to severe, depending on the depth of the freeze and location of the area treated. You may have minimal redness and swelling with little discomfort or significant discoloration and blistering with considerable discomfort. A burning sensation in the skin may last from several minutes to several hours after the procedure. Follow these instructions when caring for an area treated by cryosurgery: 1. Please clean the area every day with gentle soap and water. It is not necessary to cover the site with a bandage. However, it may be used for protection and it must be changed daily. Do not leave a soiled or wet bandage on the wound. 2. If you are experiencing discomfort you may u (more content not included)... Normal [facility] CRYOTHERAPY SKIN LESIONon Complexity: simple Destruction method: cryotherapy Informed consent: discussed and consent obtained Informed consent comment: The risks of hypopigmentation, tenderness, and slow wound healing discussed. Lesion destroyed using liquid nitrogen: Yes Region frozen until ice ball extended beyond lesion: Yes Cryotherapy cycles: 2 Outcome: patient tolerated procedure well with no complications Post-procedure details: wound care instructions given [facility] Complexity: simple Destruction method: cryotherapy Informed consent: discussed and consent obtained Informed consent comment: The risks of hypopigmentation, tenderness, and slow wound healing discussed. Lesion destroyed using liquid nitrogen: Yes Region frozen until ice ball extended beyond lesion: Yes Cryotherapy cycles: 2 Outcome: patient tolerated procedure well with no complications Post-procedure details: wound care instructions given [facility] CNOVon 02-24-2024 CNOV Office Visit (DERMST ) NROMA SINGER ([id number]) 1965 M Date Time Provider Department 02/24/24 3:00 PM FILIPE MADSEN During your visit today, we recorded the following information about you: Filipe Madsen MD 02/24/2024 3:41 PM Signed Department of Dermatology Filipe Madsen MD 02/24/2024 Last visit in Dermatology: Visit date not found Objective/Assessment/Plan 1. Seborrheic keratosis Hyperkeratotic, variably hyperpigmented, stuck on papules. This is a (these are) benign lesion(s), requiring only observation at this time. The benign nature is discussed with the patient, no additional treatment is required at the present. The patient will observe for changes or new symptoms and will contact us for future concerns. 2. AK (actinic keratosis) (2) Right [place], Right Temporal Scalp Red papules with gritty adherent scale. LN2 today. CRYOTHERAPY SKIN LESION - Right [place], Right Temporal Scalp Complexity: simple Destruction method: cryotherapy Informed consent: discussed and consent obtained Informed consent comment: The risks of hypopigmentation, tenderness, and slow wound healing discussed. Lesion destroyed using liquid nitrogen: Yes Region frozen until ice ball extended beyond lesion: Yes Cryotherapy cycles: 2 Outcome: patient tolerated procedure well with no complications Post-procedure details: wound care instructions given Additional details: Performed by TRAVON Quesada under my direct supervision. 3. Xerosis cutis (3) Left Lower Leg - Anterior, Right Lower Leg - Anterior (2) Xerosis with hyperkeratotic papules on b/l lower legs. 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 Discussed treatment options. Ammonium lactate twice daily as noted. We discussed the risks, benefits, alternatives, and expected outcomes concerning the prescribed medications. We answered any patient questions regarding these medications and reviewed their use. ammonium lactate (LAC-HYDRIN) 12 % cream - Left Lower Leg - Anterior, Right Lower Leg - Anterior (2) Apply to affected area as needed. 4. Inflamed seborrheic keratosis (8) Left Upper Arm - Anterior, Left Upper Back, Mid Back (2), Neck - Anterior, Right Lower Leg - Anterior, Right Upper Arm - Anterior, Right Upper Back Inflamed, Stuck-on verrucous, variably pigmented papules and plaques. LN2 today. DESTRUCTION OF LESION - Left Upper Arm - Anterior, Left Upper Back, Mid Back (2), Neck - Anterior, Right Lower Leg - Anterior, Right Upper Arm - Anterior, Right Upper Back Complexity: simple Destruction method: cryotherapy Informed consent: discussed and consent obtained Informed consent comment: The risks of hypopigmentation, tenderness, and slow wound healing discussed. Lesion destroyed using liquid nitrogen: Yes Region frozen until ice ball extended beyond lesion: Yes Cryotherapy cycles: 2 Outcome: patient tolerated procedure well with no complications Post-procedure details: wound care instructions given 5. Skin cancer screening The patient's skin was examined for evidence of cutaneous malignancy. The nature of sun-induced photo-aging and skin cancers is discussed. Sun avoidance, protective clothing, and the use of 30-SPF sunscreens is advised. Observe closely for skin damage/changes, and call if such occurs. Other Procedures Placed This Encounter CONSULT TO DERMATOLOGY Follow-up as noted below or as needed. Chief Complaint: Patient presents with: Full Body Skin Check Subjective and Objective No data to display HPI: Norma Singer is a 58 year old male who presents for: Skin check. Desires: Total body skin check History of skin cancer?: No Areas of particular concern?: Yes: lesions on the legs can bleed at times. They are partially falling off. Past medical history is reviewed. Medication list is reviewed. Physical Exam included: Scalp, face, ears, neck, chest, back, abdomen, bilateral upper extremities, bilateral lower extremities, buttocks, hands, feet, nails and hair By signing my name below, I, Willard Blum, attest that this documentation has been prepared under the direction and the presence of Dr. Cale RETANA. Electronically signed, Willard Blum, Medical Student/Scribe February 24, 2024 3:18 PM Attending signature: TEACHING PHYSICIAN NOTE OF PERSONAL INVOLVEMENT IN CARE: I have personally seen and examined the patient and performed the medical decision-making components. I have reviewed the medical student documentation and verified the findings in the note as written. Any additions or changes are noted in bold/italics. In addition, as applicable, I agree with the Chief Complaint, ROS, and Past Histories independently gathered by the clinical customer support technician and the remaining scribed note accurately describe (more content not included)... Normal [facility] CRYOTHERAPY SKIN LESIONon Complexity: simple Destruction method: cryotherapy Informed consent: discussed and consent obtained Informed consent comment: The risks of hypopigmentation, tenderness, and slow wound healing discussed. Lesion destroyed using liquid nitrogen: Yes Region frozen until ice ball extended beyond lesion: Yes Cryotherapy cycles: 2 Outcome: patient tolerated procedure well with no complications Post-procedure details: wound care instructions given Additional details: Performed by TRAVON Quesada under my direct supervision. [facility] DESTRUCTION OF LESIONon 05-0 Complexity: simple Destruction method: cryotherapy Informed consent: discussed and consent obtained Informed consent comment: The risks of hypopigmentation, tenderness, and slow wound healing discussed. Lesion destroyed using liquid nitrogen: Yes Region frozen until ice ball extended beyond lesion: Yes Cryotherapy cycles: 2 Outcome: patient tolerated procedure well with no complications Post-procedure details: wound care instructions given [facility] CNPYumiko 02-11-2024 CNPN Telephone (CDLE) NORMA SINGER ([id number]) 1965 M Date Time Provider Department 02/11/24 LORAINE INMAN CDLBME During your visit today, we recorded the following information about you: Loraine Inman RN 02/11/2024 2:38 PM Signed Called pt and states my insurance is not covering it so they said it was cancelled. Allergies As of Date: 02/11/2024 Noted Allergy Reaction CAT DANDER 09/29/2022 5 - Intolerance HAY FEVER (SEASONAL ALLERGIES) 05/11/2013 16 - Unknown Date Reviewed: 01/28/2024 Reviewed by: Aure Trinh MA - Fully Assessed Reason for Visit: Reminder Call [[id number]] Prescriptions as of 02/11/2024 - dapagliflozin propanediol (FARXIGA) 10 mg tablet Take 0.5 tablets by mouth daily with breakfast. - amLODIPine (NORVASC) 10 mg tablet take 1 tablet by mouth every day - metoprolol succinate ER (TOPROL XL) 100 mg take 1 tablet by mouth every day - hydrALAZINE (APRESOLINE) 10 mg tablet Take 1 tablet by mouth every 6 hours as needed (SBP >160 or DBP >100). - losartan (COZAAR) 100 mg tablet take 1 tablet by mouth every day - rosuvastatin (CRESTOR) 20 mg tablet Take 1 tablet by mouth daily at bedtime. - furosemide (LASIX) 40 mg tablet Take 1 tablet by mouth every afternoon. - potassium chloride ER (KLOR-CON M20) 20 mEq tablet TAKE 2 TABLETS BY MOUTH ONCE DAILY WITH FUROSEMIDE. - bacitracin 500 unit/gram ointment Apply to affected area once daily. Right 2nd toe - acetaminophen (TYLENOL) 500 mg tablet Take 2 tablets by mouth every 6 hours as needed for pain. Problem List As Of Date 02/11/2024 Noted Resolved Hypertension [I10] Stasis edema [I87.309] PRERNA (obstructive sleep apnea) [G47.33] Seasonal allergies [J30.2] GERD (gastroesophageal reflux disease) [K21.9] Renal calculus [N20.0] BMI 45.0-49.9, adult (HCC) [Z68.42] Rhinitis [J31.0] 09/07/2013 Back pain [M54.9] Lymphedema [I89.0] 02/09/2015 Elevated serum creatinine [R79.89] 12/14/2020 Hyperlipidemia, mixed [E78.2] 12/14/2020 Bilateral leg edema [R60.0] 04/16/2021 Stage 3a chronic kidney disease (HCC) [N18.31] Left Lower Leg Cellulitis [L03.90] 06/04/2022 06/09/2022 Left Lower Leg Wound Infection [T14.8XXA, L08.9]06/04/2022 Chronic venous stasis LEs [I87.8] 06/05/2022 Pulmonary embolism, bilateral (HCC) [I26.99] 06/16/2022 09/30/2023 Right leg DVT (HCC) [I82.401] 06/25/2022 Choledocholithiasis [K80.50] 06/25/2022 Ulcer of lower limb, left, limited to breakdown*11/12/2022 Chronic venous insufficiency [I87.2] 11/12/2022 Leg ulcer, left, with fat layer exposed ([facility]) [*03/10/2023 History of pulmonary embolism [Z86.711] 09/30/2023 Chronic congestive heart failure (HCC) [I50.9] 10/23/2023 Chest pain, pleuritic [R07.81] 12/31/2023 Hypoxia [R09.02] 12/31/2023 Heart failure with mid-range ejection fraction *01/28/2024 Encounter Status:Closed by LORAINE INMAN on 02/11/24 [facility] 01-02-2024 [facility] HNO ID: [id number] Author: RAJESH ALCOCER MD Service: Hospital Medicine Author Type: Physician Type: Discharge Summary Filed: 01/02/2024 17:56 Note Text: DISCHARGE SUMMARY PATIENT NAME: Norma Singer ADMISSION DATE: 12/31/2023 DISCHARGE DATE: 01/02/2024 ATTENDING PHYSICIAN: No att. providers found Code Status: Full Code PCP: Marcio Vasquez APRN.ALICIA Highest Readmission Risk Score: 13 The 30 day readmissions risk score is derived from an internally validated risk model which evaluates patient level characteristics, utilization history, medication orders and lab results up until the day of discharge. Patients with a score of 40 or above are considered highest risk for readmission. Specific patient level drivers will be listed at the bottom of the summary. TRANSITIONS OF CARE CRITICAL ISSUES: [place] MEDICATION CHANGES: Started amlodipine, hydralazine as needed, Robaxin as needed, continue Eliquis LAB MONITORING NEEDED: Patient should have repeat CBC, renal function and electrolytes done on next outpatient visit IMAGING FOLLOW-UP: LABS AND PROCEDURES PENDING AT DISCHARGE: FOLLOW UP: Patient will need to follow-up with primary care physician soon after discharge from the hospital. REASON FOR HOSPITALIZATION: Left-sided flank pain PRINCIPAL DIAGNOSIS: Uncontrolled hypertension SECONDARY DIAGNOSIS: Principal Problem: Chest pain, pleuritic (POA: Yes) Active Problems: Hypertension (POA: Yes) Stasis edema (POA: Yes) PRERNA (obstructive sleep apnea) (POA: Yes) GERD (gastroesophageal reflux disease) (POA: Yes) Lymphedema (POA: Yes) Elevated serum creatinine (POA: Yes) Hyperlipidemia, mixed (POA: Yes) Bilateral leg edema (POA: Yes) Stage 3a chronic kidney disease (HCC) (POA: Yes) Right leg DVT (HCC) (POA: Yes) Chronic venous insufficiency (POA: Yes) History of pulmonary embolism (POA: Yes) Chronic congestive heart failure (HCC) (POA: Yes) Hypoxia (POA: Yes) Resolved Problems: * No resolved hospital problems. * HOSPITAL COURSE: Norma Singer is a 58 year old male presented with past medical history of CHF, HTN, CKD, hx PE/DVT (on Eliquis), PRERNA (no use of CPAP), morbid obesity, renal calculi, and lymphedema presented with left sided chest pain/ flank pain. Patient was admitted to the hospital for further treatment and evaluation. Patient's pain was more left flank pain in nature. Endorses having had pain in the past after having rib fractures in that area. Pain appears more MSK in nature. High-sensitivity troponin remained flat. EKG showed no acute findings and chronic changes. Patient did undergo CT PE which showed questionable filling defect in segmental and subsegmental left lower lobe pulmonary artery branches. Vascular surgery was consulted and felt there was no concern for PE however patient should continue taking Eliquis 5 mg twice daily. Patient appears to be noncompliant with medications. Restarted on blood pressure medications and Norvasc was added. Patient showed improvement in blood pressure. As needed hydralazine added for blood pressure greater than 160/100. Patient should inform primary care physician if he notices blood pressure elevated on home checks. Patient would like to leave the hospital as soon as possible. Patient's hospital course and need for follow-up were explained to patient and family who are in understanding. Patient will need to follow-up with primary care physician soon after discharge from the hospital. OPERATIONS/PROCEDURE DURING THIS HOSPITALIZATION: * No surgery found * CONSULTS DURING HOSPITALIZATION: Treatment Team: Primary Service: 3, [facility] Orders Placed This Encounter Follow-Up Appointment PATIENT CONDITION AT DISCHARGE: Stable ADVANCE CARE PLANNING DISCUSSION (if applicable): N/A DISCHARGE DISPOSITION: Home with Self Care Physical exam: Constitutional: In no apparent distress. Vital signs stable. Obese Eye: Pupils are equal. Extraocular motions intact ENMT: No visible external trauma. Hearing grossly intact. Neck: No Jugular Vein Distention Cardiovascular: Regular rate and rhythm. S1 and S2 Respiratory: Chest with clear breath sounds bilaterally Gastrointestinal: Soft, without detectable tenderness. No sign of distention. No rebound or guarding, no masses palpated. Bowel sounds present Genitourinary:Bladder soft Musculoskeletal: Good range of motion of all major joints. Extremities without clubbing, without cyanosis, mild lower extremity edema bilaterally Integumentary: No rash, no bruising, no lesions Neurologic: Oriented to person, place and time. No focal sensory or strength deficits. Speech normal. Follows commands. Psychiatric: Calm, cooperative, appropriate WOUND/SURGICAL SITE CARE: None SUPPLIES OR EQUIPMENT: None DIET: Low Salt ACTIVITY AND EXERCISE: As tolerated ADDITIONAL INFORMATION: None FOLLOW UP APPOINTMENTS: Future Appointments Date Time Provider Depar (more content not included)... Normal [facility] Basic metabolic 2000 panelon 01-01-2024 Anion gap [Moles/Vol] 11 mmol/L Normal 9-18 [facility] Comment on above: Order Comment: Speci men Type: BLOOD SPECIMEN Ordering Facility: [facility] Address: [address], [place] [address] Performed By: #### 2 4321-2, #### [facility] CLIA [id number] [address] [place] [address] [place] Calcium [Mass/Vol] 9.4 mg/dL Normal 8.5-10.2 [facility] Comment on above: Order Comment: Speci men Type: BLOOD SPECIMEN Ordering Facility: [facility] Address: [address] [place] [address] Performed By: #### 2 432-2, #### [facility] CLIA [id number] [address] [place] [address] [place] Chloride [Moles/Vol] 103 mmol/L Normal 97-105 [facility] Comment on above: Order Comment: Speci men Type: BLOOD SPECIMEN Ordering Facility: [facility] Address: [address] [place] [address] Performed By: #### 2 4320-2, #### [facility] CLIA [id number] [address] [place] [address] [place] CO2 [Moles/Vol] 25 mmol/L Normal 22-30 [facility] Comment on above: Order Comment: Speci men Type: BLOOD SPECIMEN Ordering Facility: [facility] Address: [address] [place] [address] Performed By: #### 2 2, #### [facility] CLIA [id number] [address] [place] Creatinine [Mass/Vol] 1.11 mg/dL Normal 0.73-1.22 [facility] Comment on above: Order Comment: Speci men Type: BLOOD SPECIMEN Ordering Facility: [facility] Address: [address] [place] [address] Performed By: #### 2 4320-2, #### [facility] CLIA [id number] [address] [place] Creatinine and Glomerular filtration rate.predicted panel (S/P/Bld) 77 mL/min/1.73m??? Normal >=60 [facility] Comment on above: Order Comment: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 congruent mood Attitude: cooperative Thought Process: normal Thought Content: normal Judgment: judgment good Details: Details:: Exam was limited due to phone visit with no video. Quality Reporting Tobacco Screening ([facility] 138) Smoking Status: Former smoker Coding Level of Care Code New Pt Level 1 Telephone Patient Type New History Problem Focused Exam Problem Focused Medical Decision Making Straight Forward Diagnoses COVID-19 U07.1 BMI 39.0-39.9,adult Z68.39 Time Spent (min) 10 Comment 11502 Assessment and Plan Assessment and Plan (1) COVID-19: Status: Acute Plan - Flor Duval LEATHER CLEANER, LEATHER CLEANER-C: The patient remains appropriate for the Monoclonal Antibody Infusion. The patient states understanding of this information communicated and wishes to proceed with monoclonal antibody infusion therapy. Patient agrees to receive either balanivimab/etesvimab or casir (more content not included)... Normal [facility] Vital Signs Date Time Vital Sign Value Performing Clinician Tiffanie fulton 07-05-2025 14:49-0400 Diastolic blood pressure 98 mm[Hg] Shannen Flower APRN.CNP Work Phone: [facility] 07-05-2025 14:49-0400 Systolic blood pressure 160 mm[Hg] Shannen Flower APRN.CNP Work Phone: [facility] 07-05-2025 14:19-0400 Body mass index (BMI) [Ratio] 51.85 kg/m2 Shannen Flower APRN.CNP Work Phone: [facility] 07-05-2025 14:19-0400 Body weight 180.71 kg Shannen Flower APRN.BUSINESS SUPPORT ASSOCIATE Work Phone: [facility] 07-05-2025 14:19-0400 Heart rate 80 /min Shannen Flower APRN.BUSINESS SUPPORT ASSOCIATE Work Phone: [facility] 07-05-2025 14:19-0400 SaO2% (BldA) [Mass fraction] 95 % Shannen Flower APRN.BUSINESS SUPPORT ASSOCIATE Work Phone: [facility] 04-11-2025 15:17-0400 Body height 186.7 cm Jessica Durham MD Work Phone: [facility] 04-11-2025 15:17-0400 Body mass index (BMI) [Ratio] 50.5 kg/m2 Jessica Durham MD Work Phone: [facility] 04-11-2025 15:17-0400 Body weight 176 kg Jessica Durham MD Work Phone: [facility] 04-11-2025 15:17-0400 Diastolic blood pressure 80 mm[Hg] Jessica Durham MD Work Phone: [facility] 04-11-2025 15:17-0400 Heart rate 77 /min Jessica Durham MD Work Phone: [facility] 04-11-2025 15:17-0400 Respiratory rate 18 /min Jessica Durham MD Work Phone: [facility] 04-11-2025 15:17-0400 SaO2% (BldA) [Mass fraction] 97 % Jessica Durham MD Work Phone: [facility] 04-11-2025 15:17-0400 Systolic blood pressure 126 mm[Hg] Jessica Durham MD Work Phone: [facility] 01-04-2025 11:13-0400 Body height 188 cm Marcio Vasquez APRN.BUSINESS SUPPORT ASSOCIATE Work Phone: [facility] 01-04-2025 11:13-0400 Body mass index (BMI) [Ratio] 50.33 kg/m2 Marcio Vasquez APRN.BUSINESS SUPPORT ASSOCIATE Work Phone: [facility] 01-04-2025 11:13-0400 Body temperature 97.81 [degF] Marcio Vasquez CATALYST IMPREGNATOR.BUSINESS SUPPORT ASSOCIATE Work Phone: [facility] 01-04-2025 11:13-0400 Body weight 177.81 kg Marcio Vasquez CATALYST IMPREGNATOR.BUSINESS SUPPORT ASSOCIATE Work Phone: [facility] 01-04-2025 11:13-0400 Diastolic blood pressure 78 mm[Hg] Marcio Vasquez CATALYST IMPREGNATOR.BUSINESS SUPPORT ASSOCIATE Work Phone: [facility] 01-04-2025 11:13-0400 Heart rate 75 /min Marcio Vasquez CATALYST IMPREGNATOR.BUSINESS SUPPORT ASSOCIATE Work Phone: [facility] 01-04-2025 11:13-0400 Respiratory rate 18 /min Marcio Vasquez CATALYST IMPREGNATOR.BUSINESS SUPPORT ASSOCIATE Work Phone: [facility] 01-04-2025 11:13-0400 SaO2% (BldA) [Mass fraction] 95 % Marcio Vasquez CATALYST IMPREGNATOR.BUSINESS SUPPORT ASSOCIATE Work Phone: [facility] 01-04-2025 11:13-0400 Systolic blood pressure 126 mm[Hg] Marcio Vasquez CATALYST IMPREGNATOR.BUSINESS SUPPORT ASSOCIATE Work Phone: [facility] 06-24-2024 10:56-0400 Body height 188 cm Marcio Vasquez CATALYST IMPREGNATOR.BUSINESS SUPPORT ASSOCIATE Work Phone: [facility] 06-24-2024 10:56-0400 Body mass index (BMI) [Ratio] 48.92 kg/m2 Marcio Vasquez CATALYST IMPREGNATOR.BUSINESS SUPPORT ASSOCIATE Work Phone: [facility] 06-24-2024 10:56-0400 Body temperature 98.49 [degF] Marcio Vasquez CATALYST IMPREGNATOR.BUSINESS SUPPORT ASSOCIATE Work Phone: [facility] 06-24-2024 10:56-0400 Body weight 172.82 kg Marcio Vasquez CATALYST IMPREGNATOR.BUSINESS SUPPORT ASSOCIATE Work Phone: [facility] 06-24-2024 10:56-0400 Diastolic blood pressure 74 mm[Hg] Marcio Vasquez CATALYST IMPREGNATOR.BUSINESS SUPPORT ASSOCIATE Work Phone: [facility] 06-24-2024 10:56-0400 Heart rate 89 /min Marcio Vasquez CATALYST IMPREGNATOR.BUSINESS SUPPORT ASSOCIATE Work Phone: [facility] 06-24-2024 10:56-0400 SaO2% (BldA) [Mass fraction] 91 % Marcio Vasquez CATALYST IMPREGNATOR.BUSINESS SUPPORT ASSOCIATE Work Phone: [facility] 06-24-2024 10:56-0400 Systolic blood pressure 124 mm[Hg] Marcio Vasquez CATALYST IMPREGNATOR.BUSINESS SUPPORT ASSOCIATE Work Phone: [facility] 03-23-2024 11:08-0400 Diastolic blood pressure 70 mm[Hg] Marcio Vasquez CATALYST IMPREGNATOR.BUSINESS SUPPORT ASSOCIATE Work Phone: [facility] 03-23-2024 11:08-0400 Systolic blood pressure 120 mm[Hg] Marcio Vasquez CATALYST IMPREGNATOR.BUSINESS SUPPORT ASSOCIATE Work Phone: [facility] 03-23-2024 10:29-0400 Body height 188 cm Marcio Vasquez CATALYST IMPREGNATOR.BUSINESS SUPPORT ASSOCIATE Work Phone: [facility] 03-23-2024 10:29-0400 Body mass index (BMI) [Ratio] 48.4 kg/m2 Marcio Vasquez CATALYST IMPREGNATOR.BUSINESS SUPPORT ASSOCIATE Work Phone: [facility] 03-23-2024 10:29-0400 Body temperature 97.7 [degF] Marcio Vasquez CATALYST IMPREGNATOR.BUSINESS SUPPORT ASSOCIATE Work Phone: [facility] 03-23-2024 10:29-0400 Body weight 171.01 kg Marcio Vasquez CATALYST IMPREGNATOR.BUSINESS SUPPORT ASSOCIATE Work Phone: [facility] 03-23-2024 10:29-0400 Heart rate 71 /min Marcio Vasquez CATALYST IMPREGNATOR.BUSINESS SUPPORT ASSOCIATE Work Phone: [facility] 03-23-2024 10:29-0400 Respiratory rate 16 /min Marcio Vasquez CATALYST IMPREGNATOR.BUSINESS SUPPORT ASSOCIATE Work Phone: [facility] 03-23-2024 10:29-0400 SaO2% (BldA) [Mass fraction] 96 % Marcio Vasquez APRN.BUSINESS SUPPORT ASSOCIATE Work Phone: [facility] 01-28-2024 11:22-0400 Diastolic blood pressure 78 mm[Hg] Edgar Almaraz MD Work Phone: [facility] 01-28-2024 11:22-0400 Systolic blood pressure 147 mm[Hg] Edgar Almaraz MD Work Phone: [facility] 01-28-2024 11:12-0400 Body height 188 cm Edgar Almaraz MD Work Phone: [facility] 01-28-2024 11:12-0400 Body weight 170.55 kg Edgar Almaraz MD Work Phone: [facility] 01-28-2024 11:12-0400 Heart rate 70 /min Edgar Almaraz MD Work Phone: [facility] 01-28-2024 11:12-0400 SaO2% (BldA) [Mass fraction] 95 % Edgar Almaraz MD Work Phone: [facility] 01-12-2024 13:15-0400 Body height 188 cm Marcio Vasquez APRN.BUSINESS SUPPORT ASSOCIATE Work Phone: [facility] 01-12-2024 13:15-0400 Body temperature 97.39 [degF] Marcio Vasquez APRN.BUSINESS SUPPORT ASSOCIATE Work Phone: [facility] 01-12-2024 13:15-0400 Body weight 172.37 kg Marcio Vasquez CAT[employer]YST IMPREGNATOR.BUSINESS SUPPORT ASSOCIATE Work Phone: [facility] 01-12-2024 13:15-0400 Diastolic blood pressure 76 mm[Hg] Marcio Vasquez CATALYST IMPREGNATOR.BUSINESS SUPPORT ASSOCIATE Work Phone: [facility] 01-12-2024 13:15-0400 Heart rate 41 /min Marcio Vasquez APRN.BUSINESS SUPPORT ASSOCIATE Work Phone: [facility] 01-12-2024 13:15-0400 SaO2% (BldA) [Mass fraction] 97 % Marcio Trill CATALYST IMPREGNATOR.BUSINESS SUPPORT ASSOCIATE Work Phone: [facility] 01-12-2024 13:15-0400 Systolic blood pressure 128 mm[Hg] Marcio Trill CATALYST IMPREGNATOR.BUSINESS SUPPORT ASSOCIATE Work Phone: [facility] 09-23-2023 11:00-0500 Diastolic blood pressure 106 mm[Hg] Marcio Trill CATALYST IMPREGNATOR.BUSINESS SUPPORT ASSOCIATE Work Phone: [facility] 09-23-2023 11:00-0500 Systolic blood pressure 146 mm[Hg] Marcio Trill CATALYST IMPREGNATOR.BUSINESS SUPPORT ASSOCIATE Work Phone: [facility] 09-23-2023 10:17-0500 Body height 188 cm Marcio Trill CATALYST IMPREGNATOR.BUSINESS SUPPORT ASSOCIATE Work Phone: [facility] 09-23-2023 10:17-0500 Body temperature 97.39 [degF] Marcio Trill CATALYST IMPREGNATOR.BUSINESS SUPPORT ASSOCIATE Work Phone: [facility] 09-23-2023 10:17-0500 Body weight 176.45 kg Marcio Trill CATALYST IMPREGNATOR.BUSINESS SUPPORT ASSOCIATE Work Phone: [facility] 09-23-2023 10:17-0500 Heart rate 71 /min Marcio Trill CATALYST IMPREGNATOR.BUSINESS SUPPORT ASSOCIATE Work Phone: [facility] 09-23-2023 10:17-0500 SaO2% (BldA) [Mass fraction] 96 % Marcio Trill CATALYST IMPREGNATOR.BUSINESS SUPPORT ASSOCIATE Work Phone: [facility] 08-28-2023 13:27-0400 Body height 188 cm Madison Queden CATALYST IMPREGNATOR.BUSINESS SUPPORT ASSOCIATE Work Phone: [facility] 08-28-2023 13:27-0400 Body temperature 98.01 [degF] Madison Queden CATALYST IMPREGNATOR.BUSINESS SUPPORT ASSOCIATE Work Phone: [facility] 08-28-2023 13:27-0400 Body weight 171.46 kg Madison Queden CATALYST IMPREGNATOR.BUSINESS SUPPORT ASSOCIATE Work Phone: [facility] 08-28-2023 13:27-0400 Diastolic blood pressure 82 mm[Hg] Madison Queden CATALYST IMPREGNATOR.BUSINESS SUPPORT ASSOCIATE Work Phone: [facility] 08-28-2023 13:27-0400 Heart rate 69 /min Madison Queden CATALYST IMPREGNATOR.BUSINESS SUPPORT ASSOCIATE Work Phone: [facility] 08-28-2023 13:27-0400 Respiratory rate 16 /min Madison Queden CATALYST IMPREGNATOR.BUSINESS SUPPORT ASSOCIATE Work Phone: [facility] 08-28-2023 13:27-0400 SaO2% (BldA) [Mass fraction] 95 % Madison Queden CATALYST IMPREGNATOR.BUSINESS SUPPORT ASSOCIATE Work Phone: [facility] 08-28-2023 13:27-0400 Systolic blood pressure 134 mm[Hg] Madison Queden CATALYST IMPREGNATOR.BUSINESS SUPPORT ASSOCIATE Work Phone: [facility] 12-19-2022 10:01-0500 Diastolic blood pressure 95 mm[Hg] Janneth Rock CATALYST IMPREGNATOR.BUSINESS SUPPORT ASSOCIATE Work Phone: [facility] 12-19-2022 10:01-0500 Systolic blood pressure 163 mm[Hg] Janneth Meenakshi CATALYST IMPREGNATOR.BUSINESS SUPPORT ASSOCIATE Work Phone: [facility] 12-19-2022 10:00-0500 Body temperature 97.81 [degF] Janneth Rock CATALYST IMPREGNATOR.BUSINESS SUPPORT ASSOCIATE Work Phone: [facility] 12-19-2022 10:00-0500 Heart rate 77 /min Janneth Meenakshi CATALYST IMPREGNATOR.BUSINESS SUPPORT ASSOCIATE Work Phone: [facility] 12-19-2022 10:00-0500 SaO2% (BldA) [Mass fraction] 94 % Janneth Rock CATALYST IMPREGNATOR.BUSINESS SUPPORT ASSOCIATE Work Phone: [facility] 11-28-2022 13:09-0500 Diastolic blood pressure 78 mm[Hg] Janneth Rock CATALYST IMPREGNATOR.BUSINESS SUPPORT ASSOCIATE Work Phone: [facility] 11-28-2022 13:09-0500 Systolic blood pressure 145 mm[Hg] Janneth Meenakshi CATALYST IMPREGNATOR.BUSINESS SUPPORT ASSOCIATE Work Phone: [facility] 11-28-2022 13:08-0500 Body temperature 97.2 [degF] Janneth Meenakshi CATALYST IMPREGNATOR.BUSINESS SUPPORT ASSOCIATE Work Phone: [facility] 11-28-2022 13:08-0500 Heart rate 82 /min Janneth Rock CATALYST IMPREGNATOR.BUSINESS SUPPORT ASSOCIATE Work Phone: [facility] 11-28-2022 13:08-0500 SaO2% (BldA) [Mass fraction] 97 % Janneth Meenakshi CATALYST IMPREGNATOR.BUSINESS SUPPORT ASSOCIATE Work Phone: [facility] 11-07-2022 15:43-0500 Diastolic blood pressure 82 mm[Hg] Janneth Rock CATALYST IMPREGNATOR.BUSINESS SUPPORT ASSOCIATE Work Phone: [facility] 11-07-2022 15:43-0500 Systolic blood pressure 150 mm[Hg] Janneth Meenakshi CATALYST IMPREGNATOR.BUSINESS SUPPORT ASSOCIATE Work Phone: [facility] 11-07-2022 15:30-0500 Body temperature 97.9 [degF] Janneth Meenakshi CATALYST IMPREGNATOR.BUSINESS SUPPORT ASSOCIATE Work Phone: [facility] 11-07-2022 15:30-0500 Heart rate 80 /min Janneth Rock CATALYST IMPREGNATOR.BUSINESS SUPPORT ASSOCIATE Work Phone: [facility] 11-07-2022 15:30-0500 SaO2% (BldA) [Mass fraction] 96 % Janneth Rock CATALYST IMPREGNATOR.BUSINESS SUPPORT ASSOCIATE Work Phone: [facility] 10-30-2022 08:21-0500 Body temperature 97.39 [degF] Janneth Rock CATALYST IMPREGNATOR.BUSINESS SUPPORT ASSOCIATE Work Phone: [facility] 10-30-2022 08:21-0500 Diastolic blood pressure 99 mm[Hg] Janneth Rock CATALYST IMPREGNATOR.BUSINESS SUPPORT ASSOCIATE Work Phone: [facility] 10-30-2022 08:21-0500 Heart rate 74 /min Janneth Meenakshi CATALYST IMPREGNATOR.BUSINESS SUPPORT ASSOCIATE Work Phone: [facility] 10-30-2022 08:21-0500 SaO2% (BldA) [Mass fraction] 97 % Janneth Meenakshi CATALYST IMPREGNATOR.BUSINESS SUPPORT ASSOCIATE Work Phone: [facility] 10-30-2022 08:21-0500 Systolic blood pressure 152 mm[Hg] Janneth Rock CATALYST IMPREGNATOR.BUSINESS SUPPORT ASSOCIATE Work Phone: [facility] 10-09-2022 10:39-0500 Diastolic blood pressure 108 mm[Hg] Janneth Rock CATALYST IMPREGNATOR.BUSINESS SUPPORT ASSOCIATE Work Phone: [facility] 10-09-2022 10:39-0500 Systolic blood pressure 180 mm[Hg] Janneth Rock CATALYST IMPREGNATOR.BUSINESS SUPPORT ASSOCIATE Work Phone: [facility] 10-09-2022 10:28-0500 Body temperature 96.91 [degF] Janneth Meenakshi CATALYST IMPREGNATOR.BUSINESS SUPPORT ASSOCIATE Work Phone: [facility] 10-09-2022 10:28-0500 Heart rate 85 /min Janneth Meenakshi CATALYST IMPREGNATOR.BUSINESS SUPPORT ASSOCIATE Work Phone: [facility] 10-09-2022 10:28-0500 Respiratory rate 20 /min Janneth Rock CATALYST IMPREGNATOR.BUSINESS SUPPORT ASSOCIATE Work Phone: [facility] 10-09-2022 10:28-0500 SaO2% (BldA) [Mass fraction] 95 % Janneth Meenakshi CATALYST IMPREGNATOR.BUSINESS SUPPORT ASSOCIATE Work Phone: [facility] 09-29-2022 15:55-0500 Diastolic blood pressure 90 mm[Hg] Janneth Meenakshi CATALYST IMPREGNATOR.BUSINESS SUPPORT ASSOCIATE Work Phone: [facility] 09-29-2022 15:55-0500 Systolic blood pressure 165 mm[Hg] Janneth Rock CATALYST IMPREGNATOR.BUSINESS SUPPORT ASSOCIATE Work Phone: [facility] 09-29-2022 15:51-0500 Body temperature 97.9 [degF] Janneth Meenakshi CATALYST IMPREGNATOR.BUSINESS SUPPORT ASSOCIATE Work Phone: [facility] 09-29-2022 15:51-0500 Heart rate 109 /min Janneth Meenakshi CATALYST IMPREGNATOR.BUSINESS SUPPORT ASSOCIATE Work Phone: [facility] 09-29-2022 15:51-0500 Respiratory rate 16 /min Janneth Rock CATALYST IMPREGNATOR.BUSINESS SUPPORT ASSOCIATE Work Phone: [facility] 09-29-2022 15:51-0500 SaO2% (BldA) [Mass fraction] 96 % Janneth Rock CATALYST IMPREGNATOR.BUSINESS SUPPORT ASSOCIATE Work Phone: [facility] 09-24-2022 09:15-0500 Body height 188 cm Bran Alonzo MD Work Phone: [facility] 09-24-2022 09:15-0500 Body temperature 97.81 [degF] Bran Alonzo MD Work Phone: [facility] 09-24-2022 09:15-0500 Body weight 166.51 kg Bran Alonzo MD Work Phone: [facility] 09-24-2022 09:15-0500 Diastolic blood pressure 81 mm[Hg] Bran Alonzo MD Work Phone: [facility] 09-24-2022 09:15-0500 Heart rate 79 /min Bran Alonzo MD Work Phone: [facility] 09-24-2022 09:15-0500 Respiratory rate 16 /min Bran Alonzo MD Work Phone: [facility] 09-24-2022 09:15-0500 SaO2% (BldA) [Mass fraction] 96 % Bran Alonzo MD Work Phone: [facility] 09-24-2022 09:15-0500 Systolic blood pressure 177 mm[Hg] Bran Alonzo MD Work Phone: [facility] 09-22-2022 15:42-0500 Diastolic blood pressure 92 mm[Hg] Janneth Meenakshi CATALYST IMPREGNATOR.BUSINESS SUPPORT ASSOCIATE Work Phone: [facility] 09-22-2022 15:42-0500 Systolic blood pressure 149 mm[Hg] Janneth Rock CATALYST IMPREGNATOR.BUSINESS SUPPORT ASSOCIATE Work Phone: [facility] 09-22-2022 15:39-0500 Heart rate 82 /min Janneth Meenakshi CATALYST IMPREGNATOR.BUSINESS SUPPORT ASSOCIATE Work Phone: [facility] 09-22-2022 15:39-0500 SaO2% (BldA) [Mass fraction] 95 % Janneth Meenakshi CATALYST IMPREGNATOR.BUSINESS SUPPORT ASSOCIATE Work Phone: [facility] 09-15-2022 12:03-0500 Diastolic blood pressure 92 mm[Hg] Janneth Rock CATALYST IMPREGNATOR.BUSINESS SUPPORT ASSOCIATE Work Phone: [facility] 09-15-2022 12:03-0500 Systolic blood pressure 169 mm[Hg] Janneth Meenakshi CATALYST IMPREGNATOR.BUSINESS SUPPORT ASSOCIATE Work Phone: [facility] 09-15-2022 11:55-0500 Body temperature 97.5 [degF] Janneth Rock CATALYST IMPREGNATOR.BUSINESS SUPPORT ASSOCIATE Work Phone: [facility] 09-15-2022 11:55-0500 Heart rate 107 /min Janneth Meenakshi CATALYST IMPREGNATOR.BUSINESS SUPPORT ASSOCIATE Work Phone: [facility] 09-15-2022 11:55-0500 Respiratory rate 18 /min Janneth Meenakshi CATALYST IMPREGNATOR.BUSINESS SUPPORT ASSOCIATE Work Phone: [facility] 09-15-2022 11:55-0500 SaO2% (BldA) [Mass fraction] 96 % Janneth Meenakshi CATALYST IMPREGNATOR.BUSINESS SUPPORT ASSOCIATE Work Phone: [facility] 09-08-2022 16:04-0500 Body temperature 98.29 [degF] Marcio Trill CATALYST IMPREGNATOR.BUSINESS SUPPORT ASSOCIATE Work Phone: [facility] 09-08-2022 16:04-0500 Body weight 163.2 kg Marcio Trill CATALYST IMPREGNATOR.BUSINESS SUPPORT ASSOCIATE Work Phone: [facility] 09-08-2022 16:04-0500 Diastolic blood pressure 76 mm[Hg] Marcio Trill CATALYST IMPREGNATOR.BUSINESS SUPPORT ASSOCIATE Work Phone: [facility] 09-08-2022 16:04-0500 Heart rate 85 /min Marcio Trill CATALYST IMPREGNATOR.BUSINESS SUPPORT ASSOCIATE Work Phone: [facility] 09-08-2022 16:04-0500 Respiratory rate 20 /min Marcio Trill CATALYST IMPREGNATOR.BUSINESS SUPPORT ASSOCIATE Work Phone: [facility] 09-08-2022 16:04-0500 SaO2% (BldA) [Mass fraction] 95 % Marcio Trill CATALYST IMPREGNATOR.BUSINESS SUPPORT ASSOCIATE Work Phone: [facility] 09-08-2022 16:04-0500 Systolic blood pressure 128 mm[Hg] Marcio Trill CATALYST IMPREGNATOR.BUSINESS SUPPORT ASSOCIATE Work Phone: [facility] 09-08-2022 11:24-0500 Diastolic blood pressure 92 mm[Hg] Janneth Rock CATALYST IMPREGNATOR.BUSINESS SUPPORT ASSOCIATE Work Phone: [facility] 09-08-2022 11:24-0500 Systolic blood pressure 148 mm[Hg] Janneth Rock CATALYST IMPREGNATOR.BUSINESS SUPPORT ASSOCIATE Work Phone: [facility] 09-08-2022 11:22-0500 Body temperature 97.81 [degF] Janneth Meenakshi CATALYST IMPREGNATOR.BUSINESS SUPPORT ASSOCIATE Work Phone: [facility] 09-08-2022 11:22-0500 Heart rate 79 /min Janneth Rock CATALYST IMPREGNATOR.BUSINESS SUPPORT ASSOCIATE Work Phone: [facility] 09-08-2022 11:22-0500 Respiratory rate 18 /min Janneth Rock CATALYST IMPREGNATOR.BUSINESS SUPPORT ASSOCIATE Work Phone: [facility] 09-08-2022 11:22-0500 SaO2% (BldA) [Mass fraction] 96 % Janneth Rock CATALYST IMPREGNATOR.BUSINESS SUPPORT ASSOCIATE Work Phone: [facility] 08-25-2022 11:28-0400 Diastolic blood pressure 89 mm[Hg] Janneth Meenakshi CATALYST IMPREGNATOR.BUSINESS SUPPORT ASSOCIATE Work Phone: [facility] 08-25-2022 11:28-0400 Systolic blood pressure 154 mm[Hg] Janneth Rock CATALYST IMPREGNATOR.BUSINESS SUPPORT ASSOCIATE Work Phone: [facility] 08-25-2022 11:00-0400 Body temperature 98.29 [degF] Janneth Meenakshi CATALYST IMPREGNATOR.BUSINESS SUPPORT ASSOCIATE Work Phone: [facility] 08-25-2022 11:00-0400 Heart rate 81 /min Janneth Rock CATALYST IMPREGNATOR.BUSINESS SUPPORT ASSOCIATE Work Phone: [facility] 08-25-2022 11:00-0400 Respiratory rate 22 /min Janneth Rock CATALYST IMPREGNATOR.BUSINESS SUPPORT ASSOCIATE Work Phone: [facility] 08-25-2022 11:00-0400 SaO2% (BldA) [Mass fraction] 97 % Janneth Meenakshi CATALYST IMPREGNATOR.BUSINESS SUPPORT ASSOCIATE Work Phone: [facility] 08-20-2022 09:30-0400 Diastolic blood pressure 97 mm[Hg] Janneth Meenakshi CATALYST IMPREGNATOR.BUSINESS SUPPORT ASSOCIATE Work Phone: [facility] 08-20-2022 09:30-0400 Systolic blood pressure 152 mm[Hg] Janneth Rock CATALYST IMPREGNATOR.BUSINESS SUPPORT ASSOCIATE Work Phone: [facility] 08-20-2022 08:54-0400 Body temperature 98.2 [degF] Janneth Meenakshi CATALYST IMPREGNATOR.BUSINESS SUPPORT ASSOCIATE Work Phone: [facility] 08-20-2022 08:54-0400 Heart rate 82 /min Janneth Rock CATALYST IMPREGNATOR.BUSINESS SUPPORT ASSOCIATE Work Phone: [facility] 08-20-2022 08:54-0400 SaO2% (BldA) [Mass fraction] 97 % Janneth Rock CATALYST IMPREGNATOR.BUSINESS SUPPORT ASSOCIATE Work Phone: [facility] 08-13-2022 16:18-0400 Diastolic blood pressure 93 mm[Hg] Janneth Meenakshi CATALYST IMPREGNATOR.BUSINESS SUPPORT ASSOCIATE Work Phone: [facility] 08-13-2022 16:18-0400 Systolic blood pressure 154 mm[Hg] Janneth Meenakshi CATALYST IMPREGNATOR.BUSINESS SUPPORT ASSOCIATE Work Phone: [facility] 08-13-2022 16:17-0400 Body temperature 98.91 [degF] Janneth Meenakshi CATALYST IMPREGNATOR.BUSINESS SUPPORT ASSOCIATE Work Phone: [facility] 08-13-2022 16:17-0400 Heart rate 81 /min Janneth Meenakshi CATALYST IMPREGNATOR.BUSINESS SUPPORT ASSOCIATE Work Phone: [facility] 08-13-2022 16:17-0400 Respiratory rate 20 /min Janneth Rock CATALYST IMPREGNATOR.BUSINESS SUPPORT ASSOCIATE Work Phone: [facility] 08-13-2022 16:17-0400 SaO2% (BldA) [Mass fraction] 95 % Janneth Rock CATALYST IMPREGNATOR.BUSINESS SUPPORT ASSOCIATE Work Phone: [facility] 08-07-2022 09:15-0400 Diastolic blood pressure 100 mm[Hg] Janneth Rock CATALYST IMPREGNATOR.BUSINESS SUPPORT ASSOCIATE Work Phone: [facility] 08-07-2022 09:15-0400 Systolic blood pressure 154 mm[Hg] Janneth Meenakshi CATALYST IMPREGNATOR.BUSINESS SUPPORT ASSOCIATE Work Phone: [facility] 08-07-2022 08:49-0400 Body temperature 97.5 [degF] Janneth Meenakshi CATALYST IMPREGNATOR.BUSINESS SUPPORT ASSOCIATE Work Phone: [facility] 08-07-2022 08:49-0400 Heart rate 76 /min Janneth Rock CATALYST IMPREGNATOR.BUSINESS SUPPORT ASSOCIATE Work Phone: [facility] 08-07-2022 08:49-0400 Respiratory rate 20 /min Janneth Rock CATALYST IMPREGNATOR.BUSINESS SUPPORT ASSOCIATE Work Phone: [facility] 08-07-2022 08:49-0400 SaO2% (BldA) [Mass fraction] 96 % Janneth Rock CATALYST IMPREGNATOR.BUSINESS SUPPORT ASSOCIATE Work Phone: [facility] 07-30-2022 09:50-0400 Diastolic blood pressure 87 mm[Hg] Janneth Meenakshi CATALYST IMPREGNATOR.BUSINESS SUPPORT ASSOCIATE Work Phone: [facility] 07-30-2022 09:50-0400 Systolic blood pressure 153 mm[Hg] Janneth Rock CATALYST IMPREGNATOR.BUSINESS SUPPORT ASSOCIATE Work Phone: [facility] 07-30-2022 08:40-0400 Body temperature 98.01 [degF] Janneth Rock CATALYST IMPREGNATOR.BUSINESS SUPPORT ASSOCIATE Work Phone: [facility] 07-30-2022 08:40-0400 Heart rate 73 /min Janneth Rock CATALYST IMPREGNATOR.BUSINESS SUPPORT ASSOCIATE Work Phone: [facility] 07-30-2022 08:40-0400 SaO2% (BldA) [Mass fraction] 95 % Janneth Rock CATALYST IMPREGNATOR.BUSINESS SUPPORT ASSOCIATE Work Phone: [facility] 07-23-2022 10:59-0400 Diastolic blood pressure 81 mm[Hg] Janneth Meenakshi CATALYST IMPREGNATOR.BUSINESS SUPPORT ASSOCIATE Work Phone: [facility] 07-23-2022 10:59-0400 Systolic blood pressure 148 mm[Hg] Janneth Rock CATALYST IMPREGNATOR.BUSINESS SUPPORT ASSOCIATE Work Phone: [facility] 07-23-2022 10:58-0400 Body temperature 97.59 [degF] Janneth Rock CATALYST IMPREGNATOR.BUSINESS SUPPORT ASSOCIATE Work Phone: [facility] 07-23-2022 10:58-0400 Heart rate 80 /min Janneth Rock CATALYST IMPREGNATOR.BUSINESS SUPPORT ASSOCIATE Work Phone: [facility] 07-23-2022 10:58-0400 Respiratory rate 14 /min Janneth Meenakshi CATALYST IMPREGNATOR.BUSINESS SUPPORT ASSOCIATE Work Phone: [facility] 07-23-2022 10:58-0400 SaO2% (BldA) [Mass fraction] 97 % Janneth Rock CATALYST IMPREGNATOR.BUSINESS SUPPORT ASSOCIATE Work Phone: [facility] 07-16-2022 09:07-0400 Diastolic blood pressure 99 mm[Hg] Janneth Meenakshi CATALYST IMPREGNATOR.BUSINESS SUPPORT ASSOCIATE Work Phone: [facility] 07-16-2022 09:07-0400 Systolic blood pressure 143 mm[Hg] Janneth Rock CATALYST IMPREGNATOR.BUSINESS SUPPORT ASSOCIATE Work Phone: [facility] 07-16-2022 09:06-0400 Body temperature 97.39 [degF] Janneth Meenakshi CATALYST IMPREGNATOR.BUSINESS SUPPORT ASSOCIATE Work Phone: [facility] 07-16-2022 09:06-0400 Heart rate 72 /min Janneth Rock CATALYST IMPREGNATOR.BUSINESS SUPPORT ASSOCIATE Work Phone: [facility] 07-16-2022 09:06-0400 SaO2% (BldA) [Mass fraction] 98 % Janneth Rock CATALYST IMPREGNATOR.BUSINESS SUPPORT ASSOCIATE Work Phone: [facility] 07-08-2022 13:46-0400 Body temperature 98.29 [degF] Marcio Trill CATALYST IMPREGNATOR.BUSINESS SUPPORT ASSOCIATE Work Phone: [facility] 07-08-2022 13:46-0400 Diastolic blood pressure 74 mm[Hg] Marcio Trill CATALYST IMPREGNATOR.BUSINESS SUPPORT ASSOCIATE Work Phone: [facility] 07-08-2022 13:46-0400 Heart rate 56 /min Marcio Trill CATALYST IMPREGNATOR.BUSINESS SUPPORT ASSOCIATE Work Phone: [facility] 07-08-2022 13:46-0400 SaO2% (BldA) [Mass fraction] 100 % Marcio Trill CATALYST IMPREGNATOR.BUSINESS SUPPORT ASSOCIATE Work Phone: [facility] 07-08-2022 13:46-0400 Systolic blood pressure 124 mm[Hg] Marcio Trill CATALYST IMPREGNATOR.BUSINESS SUPPORT ASSOCIATE Work Phone: [facility] 07-02-2022 10:48-0400 Body temperature 97.81 [degF] Marcio Trill CATALYST IMPREGNATOR.BUSINESS SUPPORT ASSOCIATE Work Phone: [facility] 07-02-2022 10:48-0400 Diastolic blood pressure 78 mm[Hg] Marcio Trill CATALYST IMPREGNATOR.BUSINESS SUPPORT ASSOCIATE Work Phone: [facility] 07-02-2022 10:48-0400 Heart rate 96 /min Marcio Trill CATALYST IMPREGNATOR.BUSINESS SUPPORT ASSOCIATE Work Phone: [facility] 07-02-2022 10:48-0400 Respiratory rate 18 /min Marcio Trill CATALYST IMPREGNATOR.BUSINESS SUPPORT ASSOCIATE Work Phone: [facility] 07-02-2022 10:48-0400 SaO2% (BldA) [Mass fraction] 95 % Marcio Trill CATALYST IMPREGNATOR.BUSINESS SUPPORT ASSOCIATE Work Phone: [facility] 07-02-2022 10:48-0400 Systolic blood pressure 122 mm[Hg] Marcio Trill CATALYST IMPREGNATOR.BUSINESS SUPPORT ASSOCIATE Work Phone: [facility] 06-16-2022 08:50-0400 Body temperature 97.59 [degF] Marcio Trill CATALYST IMPREGNATOR.BUSINESS SUPPORT ASSOCIATE Work Phone: [facility] 06-16-2022 08:50-0400 Diastolic blood pressure 84 mm[Hg] Marcio Trill CATALYST IMPREGNATOR.BUSINESS SUPPORT ASSOCIATE Work Phone: [facility] 06-16-2022 08:50-0400 Heart rate 119 /min Marcio Trill CATALYST IMPREGNATOR.BUSINESS SUPPORT ASSOCIATE Work Phone: [facility] 06-16-2022 08:50-0400 Respiratory rate 16 /min Marcio Trill CATALYST IMPREGNATOR.BUSINESS SUPPORT ASSOCIATE Work Phone: [facility] 06-16-2022 08:50-0400 SaO2% (BldA) [Mass fraction] 93 % Marcio Trill CATALYST IMPREGNATOR.BUSINESS SUPPORT ASSOCIATE Work Phone: [facility] 06-16-2022 08:50-0400 Systolic blood pressure 144 mm[Hg] Marcio Trill CATALYST IMPREGNATOR.BUSINESS SUPPORT ASSOCIATE Work Phone: [facility] 06-14-2022 12:59-0400 Body temperature 98.4 [degF] Radha Newbrough MEDICAL LAB TECHNOLOGIST Work Phone: [facility] 06-14-2022 12:59-0400 Diastolic blood pressure 78 mm[Hg] Radha Newbrough MEDICAL LAB TECHNOLOGIST Work Phone: [facility] 06-14-2022 12:59-0400 Heart rate 88 /min Radha Newbrough MEDICAL LAB TECHNOLOGIST Work Phone: [facility] 06-14-2022 12:59-0400 Respiratory rate 16 /min Radha Newbrough MEDICAL LAB TECHNOLOGIST Work Phone: [facility] 06-14-2022 12:59-0400 SaO2% (BldA) [Mass fraction] 96 % Radha Ramos MEDICAL LAB TECHNOLOGIST Work Phone: [facility] 06-14-2022 12:59-0400 Systolic blood pressure 140 mm[Hg] Radha Ramos MEDICAL LAB TECHNOLOGIST Work Phone: [facility] 06-13-2022 11:58-0400 Body temperature 99.61 [degF] Brigida Umaña RN Work Phone: [facility] 06-13-2022 11:58-0400 Diastolic blood pressure 98 mm[Hg] Brigida Umaña RN Work Phone: [facility] 06-13-2022 11:58-0400 Heart rate 92 /min Brigida Umaña RN Work Phone: [facility] 06-13-2022 11:58-0400 Respiratory rate 16 /min Brigida Umaña RN Work Phone: [facility] 06-13-2022 11:58-0400 SaO2% (BldA) [Mass fraction] 95 % Brigidaelizabet Umaña RN Work Phone: [facility] 06-13-2022 11:58-0400 Systolic blood pressure 164 mm[Hg] Brigida Umaña RN Work Phone: [facility] 06-11-2022 15:50-0400 Diastolic blood pressure 70 mm[Hg] January Jair RN Work Phone: [facility] 06-11-2022 15:50-0400 Systolic blood pressure 136 mm[Hg] January Jair RN Work Phone: [facility] 06-11-2022 15:12-0400 Body temperature 98.49 [degF] January Jair RN Work Phone: [facility] 06-11-2022 15:12-0400 Heart rate 78 /min January Jair RN Work Phone: [facility] 06-11-2022 15:12-0400 Respiratory rate 20 /min Amanda Jair RN Work Phone: [facility] 06-11-2022 15:12-0400 SaO2% (BldA) [Mass fraction] 94 % Amanda Adam RN Work Phone: [facility] 06-04-2022 10:32-0400 Body temperature 98.2 [degF] Marcio Trill CATALYST IMPREGNATOR.BUSINESS SUPPORT ASSOCIATE Work Phone: [facility] 06-04-2022 10:32-0400 Diastolic blood pressure 78 mm[Hg] Marcio Trill CATALYST IMPREGNATOR.BUSINESS SUPPORT ASSOCIATE Work Phone: [facility] 06-04-2022 10:32-0400 Heart rate 77 /min Marcio Trill CATALYST IMPREGNATOR.BUSINESS SUPPORT ASSOCIATE Work Phone: [facility] 06-04-2022 10:32-0400 Respiratory rate 18 /min Marcio Trill CATALYST IMPREGNATOR.BUSINESS SUPPORT ASSOCIATE Work Phone: [facility] 06-04-2022 10:32-0400 SaO2% (BldA) [Mass fraction] 96 % Marcio Trill CATALYST IMPREGNATOR.BUSINESS SUPPORT ASSOCIATE Work Phone: [facility] 06-04-2022 10:32-0400 Systolic blood pressure 128 mm[Hg] Marcio Trill CATALYST IMPREGNATOR.BUSINESS SUPPORT ASSOCIATE Work Phone: [facility] 06-02-2022 10:11-0400 Diastolic blood pressure 80 mm[Hg] Marcio Trill CATALYST IMPREGNATOR.BUSINESS SUPPORT ASSOCIATE Work Phone: [facility] 06-02-2022 10:11-0400 Systolic blood pressure 128 mm[Hg] Marcio Trill CATALYST IMPREGNATOR.BUSINESS SUPPORT ASSOCIATE Work Phone: [facility] 06-02-2022 09:25-0400 Body temperature 98.01 [degF] Marcio Trill CATALYST IMPREGNATOR.BUSINESS SUPPORT ASSOCIATE Work Phone: [facility] 06-02-2022 09:25-0400 Heart rate 77 /min Marcio Trill CATALYST IMPREGNATOR.BUSINESS SUPPORT ASSOCIATE Work Phone: [facility] 06-02-2022 09:25-0400 Respiratory rate 20 /min Marcio Trill CATALYST IMPREGNATOR.BUSINESS SUPPORT ASSOCIATE Work Phone: [facility] 06-02-2022 09:25-0400 SaO2% (BldA) [Mass fraction] 96 % Marcio Trill CATALYST IMPREGNATOR.BUSINESS SUPPORT ASSOCIATE Work Phone: [facility] 05-30-2022 15:10-0400 Body height 185.4 cm Marcio Trill CATALYST IMPREGNATOR.BUSINESS SUPPORT ASSOCIATE Work Phone: [facility] 05-30-2022 15:10-0400 Body temperature 98.1 [degF] Marcio Trill CATALYST IMPREGNATOR.BUSINESS SUPPORT ASSOCIATE Work Phone: [facility] 05-30-2022 15:10-0400 Body weight 162.21 kg Marcio Trill CATALYST IMPREGNATOR.BUSINESS SUPPORT ASSOCIATE Work Phone: [facility] 05-30-2022 15:10-0400 Diastolic blood pressure 76 mm[Hg] Marcio Trill CATALYST IMPREGNATOR.BUSINESS SUPPORT ASSOCIATE Work Phone: [facility] 05-30-2022 15:10-0400 Heart rate 83 /min Marcio Trill CATALYST IMPREGNATOR.BUSINESS SUPPORT ASSOCIATE Work Phone: [facility] 05-30-2022 15:10-0400 Respiratory rate 18 /min Marcio Trill CATALYST IMPREGNATOR.BUSINESS SUPPORT ASSOCIATE Work Phone: [facility] 05-30-2022 15:10-0400 SaO2% (BldA) [Mass fraction] 97 % Marcio Trill CATALYST IMPREGNATOR.BUSINESS SUPPORT ASSOCIATE Work Phone: [facility] 05-30-2022 15:10-0400 Systolic blood pressure 122 mm[Hg] Marcio Trill CATALYST IMPREGNATOR.BUSINESS SUPPORT ASSOCIATE Work Phone: [facility] Encounters Encounter Date Encounter Type Care Provider Facility Start: 08-04-2025 End: 08-04-2025 ambulatory MARCIO VASQUEZ Facility:[facility] Start: 07-25-2025 End: 07-25-2025 ambulatory MARCIO VASQUEZ Facility:[facility] Start: 07-07-2025 ambulatory MARCIO VASQUEZ Facilit y:[facility] Start: 07-07-2025 End: 07-07-2025 ambulatory MARCIO VASQUEZ Facility:[facility] Start: 07-05-2025 End: 07-05-2025 Patient encounter procedure Shannen Flower APRN.BUSINESS SUPPORT ASSOCIATE Work Phone: [facility] Comment on above: SOB (shortness of br eath) (Primary Dx); Heart failure with mid-range ejection fraction (HCC); Coronary artery calcification seen on CT scan; Primary hypertension; Hyperlipidemia, mixed; History of pulmonary embolism Start: 07-05-2025 End: 07-05-2025 ambulatory SELF Facility:[facility] Start: 05-14-2025 End: 05-15-2025 Refill Marcio Vasquez APRN.BUSINESS SUPPORT ASSOCIATE Work Phone: [facility] Comment on above: Refill Request Start: 04-19-2025 End: 04-19-2025 Refill Marcio Vasquez APRN.BUSINESS SUPPORT ASSOCIATE Work Phone: [facility] Comment on above: Refill Request Start: 04-11-2025 End: 04-11-2025 Patient encounter procedure Jessica Durham MD Work Phone: General Surgery Comment on above: Encounter for colore ctal cancer screening; Chronic systolic CHF (congestive heart failure) (HCC); BMI 50.0-59.9, adult (HCC) Start: 04-11-2025 End: 04-11-2025 ambulatory JESSICA DURHAM Facility:[facility] Start: 01-14-2025 End: 01-14-2025 ambulatory MARCIO VASQUEZ Facility:[facility] Start: 01-04-2025 End: 01-04-2025 Patient encounter procedure Marcio Vasquez APRN.BUSINESS SUPPORT ASSOCIATE Work Phone: [facility] Comment on above: Well adult exam ([facility] Dx); Encounter for colorectal cancer screening; Impaired fasting glucose; Screening for prostate cancer; Chronic congestive heart failure, unspecified heart failure type (HCC); Hyperlipidemia, mixed Start: 01-04-2025 End: 01-04-2025 Patient encounter status Marcio Vasquez APRN.BUSINESS SUPPORT ASSOCIATE Work Phone: [facility] Start: 01-04-2025 End: 01-04-2025 ambulatory MARCIO VASQUEZ Facility:[facility] Start: 01-04-2025 Encounter for genera l adult medical examination without abnormal findings MARCIO VASQUEZ [facility] Start: 11-14-2024 End: 11-14-2024 Telephone encounter Marcio Vasquez APRN.BUSINESS SUPPORT ASSOCIATE Work Phone: [facility] Comment on above: Results Start: 11-08-2024 End: 11-08-2024 ambulatory MARCIO VASQUEZ Facility:[facility] Start: 10-28-2024 End: 10-28-2024 Emergency department patient visit EMERALD ASCENCIO Facility:[facility] Start: 10-20-2024 End: 10-21-2024 Refill Marcio Vasquez CATALYST IMPREGNATOR.BUSINESS SUPPORT ASSOCIATE Work Phone: [facility] Comment on above: Refill Request Start: 10-08-2024 End: 10-10-2024 Refill Marcio Vasquez CATALYST IMPREGNATOR.BUSINESS SUPPORT ASSOCIATE Work Phone: [facility] Comment on above: Refill Request Start: 10-04-2024 End: 10-04-2024 Refill Edgar Almaraz MD Work Phone: [facility] [place] Comment on above: Refill Request Start: 10-04-2024 End: 10-04-2024 Telephone encounter Edgar Almaraz MD Work Phone: [facility] Comment on above: Appointment Start: 09-25-2024 End: 09-27-2024 Refill Marcio Vasquez CATALYST IMPREGNATOR.BUSINESS SUPPORT ASSOCIATE Work Phone: [facility] Comment on above: Refill Request Start: 06-24-2024 End: 06-24-2024 Refill Marcio Vasquez CATALYST IMPREGNATOR.BUSINESS SUPPORT ASSOCIATE Work Phone: [facility] Comment on above: Refill Request Start: 06-24-2024 End: 06-24-2024 Patient encounter procedure Marcio Vasquez CATALYST IMPREGNATOR.BUSINESS SUPPORT ASSOCIATE Work Phone: [facility] Comment on above: Essential hypertensi on (Primary Dx); Encounter for screening examination for other mental health and behavioral disorders; Screening for depression; Hyperglycemia; Hyperlipidemia, mixed Start: 06-03-2024 Telephone encounter Marcio Vasquez APRN.CNP Work Phone: [facility] Comment on above: Results Start: 05-31-2024 End: 05-31-2024 ambulatory MARCIO VASQUEZ Facility:[facility] Start: 05-24-2024 Chart abstracting [facility] Work Phone: Neurology Start: 05-24-2024 End: 05-24-2024 ambulatory MARCIO VASQUEZ Facility:[facility] Start: 05-24-2024 End: 05-24-2024 Patient encounter procedure Filipe Madsen MD Work Phone: Dermatology Comment on above: Inflamed seborrheic keratosis (Primary Dx); AK (actinic keratosis); Xerosis cutis; Elephantiasis nostras verrucosa Start: 05-13-2024 End: 05-13-2024 ambulatory Marcio Vasquez APRN.CNP Work Phone: [facility] Comment on above: Primary hypertension (Primary Dx); Chronic congestive heart failure, unspecified heart failure type (HCC); PRERNA (obstructive sleep apnea); Hyperlipidemia, mixed; Fatigue, unspecified type Start: 05-13-2024 End: 05-13-2024 Telemedicine consultation with patient Marcio Vasquez APRN.BUSINESS SUPPORT ASSOCIATE Work Phone: [facility] Start: 04-14-2024 Refill Jessica Ellis MD Work Phone: Endocrinology Start: 04-05-2024 End: 04-05-2024 ambulatory Jessica Ellis MD Work Phone: Endocrinology Comment on above: Low testosterone (Pr imary Dx); PRERNA (obstructive sleep apnea) Start: 04-05-2024 End: 04-05-2024 Telemedicine consultation with patient Jessica Ellis MD Work Phone: Endocrinology Start: 03-23-2024 End: 03-23-2024 Patient encounter procedure Marcio Vasquez APRN.BUSINESS SUPPORT ASSOCIATE Work Phone: [facility] Comment on above: Dyspnea, unspecified type (Primary Dx); Hyperlipidemia, mixed; Primary hypertension; Chronic congestive heart failure, unspecified heart failure type (HCC); Bilateral pulmonary embolism (HCC) Start: 02-24-2024 End: 02-24-2024 [facility] FILIPE MADSEN Facility:[facility] Start: 02-24-2024 End: 02-24-2024 Patient encounter procedure Filipe Madsen MD Work Phone: Dermatology Comment on above: Seborrheic keratosis (Primary Dx); AK (actinic keratosis); Xerosis cutis; Inflamed seborrheic keratosis; Skin cancer screening Start: 02-18-2024 Telephone encounter Marcio Vasquez APRN.CNP Work Phone: [facility] Comment on above: denial: CPT 34310 NM CARDIAC PERF STRESS/PHARM Start: 02-12-2024 Telephone encounter Marcio Vasquez APRN.CNP Work Phone: [facility] Comment on above: Patient Update (Hear t rates and blood pressures) Start: 02-11-2024 Telephone encounter Loraine pavon RN Cardiology Lab Comment on above: Reminder Call Start: 01-29-2024 Telephone encounter Marcio Vasquez APRN.CNP Work Phone: [facility] Comment on above: Results (Labs - Test osterone) Start: 01-28-2024 Refill Edgar gonzalez MD Work Phone: [facility] [place] Comment on above: Refill Request Start: 01-28-2024 End: 01-28-2024 Patient encounter procedure Edgar Almaraz MD Work Phone: [facility] [place] Comment on above: Heart failure with m id-range ejection fraction (HCC) (Primary Dx); Primary hypertension; Hyperlipidemia, mixed; History of pulmonary embolism; Stage 3a chronic kidney disease (HCC); BMI 45.0-49.9, adult (HCC); PRERNA (obstructive sleep apnea) Start: 01-23-2024 Refill Marcio montez APRN.ALICIA Work Phone: [facility] Comment on above: Refill Request Start: 01-19-2024 Patient Outreach Matthias Coleman Environmental Field Office Manager Comment on above: Transition Of Care Start: 01-12-2024 End: 01-12-2024 Patient encounter procedure Marcio Vasquez APRN.CNP Work Phone: [facility] Comment on above: Fatigue, unspecified type (Primary Dx); Hyperlipidemia, mixed; Primary hypertension; Left flank pain; Neoplasm of uncertain behavior of skin Start: 01-04-2024 Patient Outreach Matthias Coleman Environmental Field Office Manager Comment on above: Transition Of Care ( [facility] 01/02/24) Start: 12-31-2023 End: 01-02-2024 Evaluation and management of inpatient CASEY JUAN Facility:[facility] Start: 12-28-2023 Telephone encounter Marcio Vasquez APRN.CNP Work Phone: [facility] Comment on above: Lab Orders Start: 12-27-2023 Refill Marcio montez APRN.ALICIA Work Phone: [facility] Comment on above: Refill Request Start: 09-27-2023 Telephone encounter Marcio Vasquez APRN.CNP Work Phone: [facility] Comment on above: Results (CXR, labs) Start: 09-23-2023 End: 09-23-2023 Subsequent hospital visit by physician [facility] [place] [facility] Comment on above: Pleural effusion on left [J90] Start: 09-23-2023 End: 09-23-2023 Patient encounter procedure Marcio Vasquez APRN.CNP Work Phone: [facility] Comment on above: Primary hypertension (Primary Dx); Hyperlipidemia, mixed; PRERNA (obstructive sleep apnea); Dyspnea, unspecified type; Pleural effusion on left; Acute cough; Lung crackles; Generalized weakness; Fatigue, unspecified type; History of pulmonary embolism Start: 08-28-2023 End: 08-28-2023 Patient encounter procedure Madison Austin CATALYST IMPREGNATOR.BUSINESS SUPPORT ASSOCIATE Work Phone: [facility] Comment on above: Respiratory infectio n (Primary Dx); Lung crackles; Acute cough Start: 08-22-2023 Refill Marcio C Tril l CATALYST IMPREGNATOR.BUSINESS SUPPORT ASSOCIATE Work Phone: [facility] Comment on above: Refill Request Start: 07-25-2023 Refill Marcio C Tril l CATALYST IMPREGNATOR.BUSINESS SUPPORT ASSOCIATE Work Phone: [facility] Comment on above: Refill Request Start: 04-30-2023 Refill Marcio C Tril l CATALYST IMPREGNATOR.BUSINESS SUPPORT ASSOCIATE Work Phone: [facility] Comment on above: Refill Request Start: 04-14-2023 Refill Marcio C Tril l CATALYST IMPREGNATOR.BUSINESS SUPPORT ASSOCIATE Work Phone: [facility] Comment on above: Refill Request Start: 02-03-2023 Refill Marcio C Tril l CATALYST IMPREGNATOR.BUSINESS SUPPORT ASSOCIATE Work Phone: [facility] Comment on above: Refill Request Start: 02-02-2023 Refill Marcio C Tril l CATALYST IMPREGNATOR.BUSINESS SUPPORT ASSOCIATE Work Phone: [facility] Comment on above: Refill Request Start: 01-18-2023 Refill Marcio C Tril l CATALYST IMPREGNATOR.BUSINESS SUPPORT ASSOCIATE Work Phone: [facility] Comment on above: Refill Request Start: 12-19-2022 End: 12-19-2022 Patient encounter procedure Janneth Arrieta CATALYST IMPREGNATOR.BUSINESS SUPPORT ASSOCIATE Work Phone: Plastic Surgery Comment on above: Ulcer of lower limb, left, limited to breakdown of skin (HCC) (Primary Dx); Lymphedema; Chronic venous insufficiency; Chronic venous stasis LEs Start: 11-28-2022 End: 11-28-2022 Patient encounter procedure Janneth Arrieta CATALYST IMPREGNATOR.BUSINESS SUPPORT ASSOCIATE Work Phone: Plastic Surgery Comment on above: Ulcer of lower limb, left, limited to breakdown of skin (HCC) (Primary Dx); Chronic venous insufficiency; Bilateral leg edema Start: 11-07-2022 End: 11-07-2022 Patient encounter procedure Janneth Arrieta APRN.ALICIA Work Phone: Plastic Surgery Comment on above: Ulcer of lower limb, left, limited to breakdown of skin (HCC) (Primary Dx); Chronic venous insufficiency; Bilateral leg edema; Primary hypertension Start: 11-03-2022 Telephone encounter Janneth Arrieta APRN.BUSINESS SUPPORT ASSOCIATE Work Phone: Plastic Surgery Comment on above: Results (Wound Cultu re) Start: 10-30-2022 Telephone encounter Bran Alonzo MD Work Phone: Pulmonary Medicine Comment on above: Results (CT Chest) Erroneous encounter- disregard Start: 10-30-2022 End: 10-30-2022 Patient encounter procedure Janneth Arrieta APRN.BUSINESS SUPPORT ASSOCIATE Work Phone: Plastic Surgery Comment on above: Wound infection (Radha aure Dx); Chronic venous stasis LEs; Lymphedema Start: 10-24-2022 End: 10-24-2022 Subsequent hospital visit by physician [facility] [place] [facility] Work Phone: [facility] Comment on above: Chest pain, unspecif ied type [R07.9] Start: 10-09-2022 End: 10-09-2022 Patient encounter procedure Janneth Arrieta APRN.BUSINESS SUPPORT ASSOCIATE Work Phone: Plastic Surgery Comment on above: Left Lower Leg Wound Infection (Primary Dx); Bilateral leg edema; Chronic venous stasis LEs Start: 09-29-2022 End: 09-29-2022 Patient encounter procedure Janneth Arrieta APRN.BUSINESS SUPPORT ASSOCIATE Work Phone: Plastic Surgery Comment on above: Left Lower Leg Wound Infection (Primary Dx); Bilateral leg edema; Chronic venous stasis LEs; Lymphedema Start: 09-24-2022 End: 09-24-2022 Patient encounter procedure Bran Alonzo MD Work Phone: Pulmonary Comment on above: Pulmonary embolism, bilateral (HCC) (Primary Dx); Acute deep vein thrombosis (DVT) of popliteal vein of right lower extremity (HCC); Choledocholithiasis; Left Lower Leg Wound Infection; Chest pain, unspecified type Start: 09-22-2022 End: 09-22-2022 Patient encounter procedure Janneth Arrieta APRN.BUSINESS SUPPORT ASSOCIATE Work Phone: Plastic Surgery Comment on above: Left Lower Leg Wound Infection (Primary Dx); Chronic venous stasis LEs; Lymphedema Start: 09-21-2022 Refill Marcio C Tril l CATALYST IMPREGNATOR.BUSINESS SUPPORT ASSOCIATE Work Phone: [facility] Comment on above: Refill Request Start: 09-15-2022 End: 09-15-2022 Patient encounter procedure Janneth Arrieta APRN.BUSINESS SUPPORT ASSOCIATE Work Phone: Plastic Surgery Comment on above: Chronic venous stasi s LEs (Primary Dx); Lymphedema; Left Lower Leg Wound Infection Start: 09-08-2022 End: 09-08-2022 Patient encounter procedure Janneth Arrieta APRN.BUSINESS SUPPORT ASSOCIATE Work Phone: Plastic Surgery Comment on above: Left Lower Leg Wound Infection (Primary Dx); Chronic venous stasis LEs Rib pain on left tomasa e (Primary Dx); Choledocholithiasis; Pulmonary embolism, bilateral (HCC); Depression screening; Hyperlipidemia, mixed Start: 08-26-2022 ambulatory Marcio C Tril l CATALYST IMPREGNATOR.BUSINESS SUPPORT ASSOCIATE Work Phone: Environmental Field Office Manager Start: 08-25-2022 End: 08-25-2022 Patient encounter procedure Janneth Arrieta APRN.BUSINESS SUPPORT ASSOCIATE Work Phone: Plastic Surgery Comment on above: Left Lower Leg Wound Infection (Primary Dx); Chronic venous stasis LEs; Lymphedema Start: 08-21-2022 Refill Marcio C Tril l CATALYST IMPREGNATOR.BUSINESS SUPPORT ASSOCIATE Work Phone: [facility] Comment on above: Refill Request Start: 08-20-2022 Refill Marcio C Tril l CATALYST IMPREGNATOR.BUSINESS SUPPORT ASSOCIATE Work Phone: [facility] Comment on above: Refill Request Start: 08-20-2022 End: 08-20-2022 Patient encounter procedure Janneth Arrieta CATALYST IMPREGNATOR.BUSINESS SUPPORT ASSOCIATE Work Phone: Plastic Surgery Comment on above: Left Lower Leg Wound Infection (Primary Dx); Lymphedema; Bilateral leg edema; Chronic venous stasis LEs Start: 08-16-2022 Refill Marcio montez CATALYST IMPREGNATOR.BUSINESS SUPPORT ASSOCIATE Work Phone: [facility] Comment on above: Refill Request Start: 08-13-2022 End: 08-13-2022 Patient encounter procedure Janneth Arrieta APRN.BUSINESS SUPPORT ASSOCIATE Work Phone: Plastic Surgery Comment on above: Left Lower Leg Wound Infection (Primary Dx); Lymphedema; Chronic venous stasis LEs Start: 08-07-2022 End: 08-07-2022 Patient encounter procedure Janneth Arrieta APRN.BUSINESS SUPPORT ASSOCIATE Work Phone: Plastic Surgery Comment on above: Chronic venous stasi s LEs (Primary Dx); Left Lower Leg Wound Infection Start: 07-30-2022 ambulatory Marcio Nails l CATALYST IMPREGNATOR.BUSINESS SUPPORT ASSOCIATE Work Phone: [facility] Comment on above: Norma Singer Start: 07-30-2022 End: 07-30-2022 Patient encounter procedure Janneth Arrieta APRN.BUSINESS SUPPORT ASSOCIATE Work Phone: Plastic Surgery Comment on above: Chronic venous stasi s LEs (Primary Dx); Left Lower Leg Wound Infection Start: 07-23-2022 Refill Madison bennett CATALYST IMPREGNATOR.BUSINESS SUPPORT ASSOCIATE Work Phone: [facility] Comment on above: Refill Request Start: 07-23-2022 End: 07-23-2022 Patient encounter procedure Janneth Arrieta CATALYST IMPREGNATOR.BUSINESS SUPPORT ASSOCIATE Work Phone: Plastic Surgery Comment on above: Hypoalbuminemia (Radha aure Dx); Left Lower Leg Wound Infection; Chronic venous stasis LEs Start: 07-16-2022 End: 07-16-2022 Patient encounter procedure Janneth Arrieta APRN.BUSINESS SUPPORT ASSOCIATE Work Phone: Plastic Surgery Comment on above: Left Lower Leg Wound Infection (Primary Dx); Chronic venous stasis LEs Start: 09-16-2022 ambulatory Kim España RN AG VNS Start: 07-11-2022 Follow-up encounter Kim España RN AG Environmental Field Office Manager Comment on above: Transition Of Care ( TCM follow up) Start: 07-09-2022 Refill Marcio montez APRN.ALICIA Work Phone: [facility] Comment on above: Med Change Request Start: 07-08-2022 End: 07-08-2022 Patient encounter procedure Marcio Vasquez APRN.BUSINESS SUPPORT ASSOCIATE Work Phone: [facility] Comment on above: Choledocholithiasis (Primary Dx); Elevated liver enzymes; Bilateral pulmonary embolism (HCC); Left Lower Leg Wound Infection Start: 07-08-2022 Telephone encounter Marcio Vasquez APRN.BUSINESS SUPPORT ASSOCIATE Work Phone: [facility] Comment on above: Forms; Electronic Co mmunication Referral Request Start: 07-02-2022 Telephone encounter Marcio Vasquez APRN.BUSINESS SUPPORT ASSOCIATE Work Phone: [facility] Comment on above: Opened In Error Start: 07-02-2022 End: 07-02-2022 Patient encounter procedure Marcio Vasquez APRN.BUSINESS SUPPORT ASSOCIATE Work Phone: [facility] Comment on above: Wound of left lower extremity, subsequent encounter (Primary Dx); Open wound of right great toe, subsequent encounter Start: 06-26-2022 Refill Gabriela Llamas [facility] Comment on above: Refill Request Transition Of Care ( Pharmacy- Hospital Discharge 06/25/22 ) Transition Of Care ( [facility] D/C 06/25/22) Start: 06-22-2022 Refill Marcio C Nellil l CATALYST IMPREGNATOR.BUSINESS SUPPORT ASSOCIATE Work Phone: [facility] Comment on above: Refill Request Start: 06-20-2022 Telephone encounter Elyse coleman Work Phone: [facility] Comment on above: Home Care (Confirmat ion Call ) Orders Start: 06-19-2022 Telephone encounter Manpreet Clark RN Work Phone: [facility] Comment on above: Home Care (Notificat ion of hospital admission) Start: 06-17-2022 End: 06-17-2022 Home visit Manpreet Bloom RN Work Phone: [facility] Comment on above: SN TRANSFER Start: 06-16-2022 End: 06-16-2022 Patient encounter procedure Marcio Vasquez APRN.BUSINESS SUPPORT ASSOCIATE Work Phone: [facility] Comment on above: Chest pain, unspecif ied type (Primary Dx); Shortness of breath Start: 06-14-2022 End: 06-14-2022 Home visit Chantelle Quintero RN Work Phone: [facility] Comment on above: CARE COORDINATION SN PRN VISIT Start: 06-13-2022 End: 06-13-2022 Subsequent hospital visit by physician [facility] [place] [facility] Comment on above: Lung crackles [R09.8 9] Start: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 Routine SOB (shortness of breath) Heart failure with mid-range ejection fraction (HCC) Coronary artery calcification seen on CT scan 1 Occurrences starting 07/05/2025 until 08/04/2026 [facility] Work Phone: Comment on above: 1 Occurrences starting 07/05/2025 until 08/04/2026 End: 09-23-2024 Echocardiography ECHO Cardiology Routine Dyspnea, unspecified type Lung crackles 1 Occurrences starting 09/23/2023 until 09/23/2024 [facility] Work Phone: Comment on above: 1 Occurrences starting 09/23/2023 until 09/23/2024 Hemoglobin A1c/Hemoglobin.total in Blood HEMOGLOBIN A1C (POC) Lab Routine Hyperglycemia Ordered: 06/04/2022 [facility] Work Phone: Comment on above: Ordered: 06/04/2022 End: 05-13-2025 HOME SLEEP APNEA TEST (HSAT) HOME SLEEP APNEA TEST (HSAT) Procedures Routine PRERNA (obstructive sleep apnea) 1 Occurrences starting 05/13/2024 until 05/13/2025 [facility] Work Phone: Comment on above: 1 Occurrences starting 05/13/2024 until 05/13/2025 End: 05-14-2025 MR Pituitary and Sella turcica WO and W contrast IV MRI PITUITARY WO/W IVCON Radiology Routine Low testosterone 1 Occurrences starting 04/14/2024 until 05/14/2025 [facility] Work Phone: Comment on above: 1 Occurrences starting 04/14/2024 until 05/14/2025 End: 10-08-2023 Radex spine thoracic 3 views XR THORACIC GENERAL 3V AP/LAT/SWIMMERS Radiology Routine Rib pain on left side 1 Occurrences starting 09/08/2022 until 10/08/2023 [facility] Work Phone: Comment on above: 1 Occurrences starting 09/08/2022 until 10/08/2023 End: 10-08-2023 Radiologic exam chest 2 views XR CHEST 2V FRONTAL/LAT Radiology Routine Rib pain on left side 1 Occurrences starting 09/08/2022 until 10/08/2023 [facility] Work Phone: Comment on above: 1 Occurrences starting 09/08/2022 until 10/08/2023 End: 10-24-2023 Radiologic exam chest 2 views XR CHEST 2V FRONTAL/LAT Radiology Routine Pulmonary embolism, bilateral (HCC) 1 Occurrences starting 09/24/2022 until 10/24/2023 [facility] Work Phone: Comment on above: 1 Occurrences starting 09/24/2022 until 10/24/2023 Radiologic exam ches t 2 views XR CHEST 2V FRONTAL/LAT Radiology Routine Pleural effusion on left Acute cough Lung crackles 09/23/2023 11:50 AM EST [facility] Work Phone: End: 04-11-2026 Screening colonoscopy COLONOSCOPY SCREENING Endoscopy Routine Encounter for colorectal cancer screening 1 Occurrences starting 04/11/2025 until 04/11/2026 [facility] Work Phone: Comment on above: 1 Occurrences starting 04/11/2025 until 04/11/2026 [facility] [place] IR [facility] Immunizations Immunization Date Immunization Notes Care Provider Onur bhatt 10-14-2017 influenza virus vaccine, unspecified formulation Marcio Vasquez APRN.CNP Work Phone: [facility] 07-13-2013 influenza virus vaccine, unspecified formulation Marcio Radha MCWILLIAMS.BUSINESS SUPPORT ASSOCIATE Work Phone: [facility] Work Phone: 07-13-2013 tetanus toxoid, redu radha diphtheria toxoid, and acellular pertussis vaccine, adsorbed Marcio Trigiselle CATALYST IMPREGNATOR.BUSINESS SUPPORT ASSOCIATE Work Phone: [facility] Work Phone: Payers Date Payer Category Payer Unknown [facility] [place] [id number] 2022-Present [phone] [address] [place] [address] Indemnity [id number] 2022 Unknown [facility] [place] [id number] 2022-Present [phone] [address] [place] [address] Indemnity [id number] 2021 Medicaid [id number] 2021 Medicaid [id number] 2020 Medicaid [employer] [id number] 2020-Present [phone] [address] [place] [address] Medicaid [id number] Social History Date Type Detail Facility Start: 05-11-2013 End: 01-04-2025 Tobacco smoking status NHIS Ex-smoker [facility] Work Phone: Start: 05-11-1969 End: 05-11-1983 History of tobacco use Current smoker [facility] Work Phone: Start: 05-11-1969 End: 05-11-1983 History of tobacco use Cigarette Smoker [facility] Work Phone: Start: 05-11-2013 End: 10-29-2024 Cigarettes smoked current (pack per day) - Reported 1 [facility] Work Phone: Start: 05-11-2013 End: 01-04-2025 Tobacco use and exposure Smokeless tobacco non-user [facility] Work Phone: Start: 09-30-2021 End: 10-28-2024 Alcohol intake Current non-drinker of alcohol (finding) [facility] Start: 07-13-2013 History SDOH Alcohol Comment no alcohol since 17years old, strong family history [facility] Start: 1965 Sex Assigned At Not on file [facility] Start: 05-16-2022 End: 09-29-2022 Exposure to SARS-CoV-2 (event) Not sure [facility] Start: 06-17-2022 History SDOH Financial 4 [facility] Start: 06-17-2022 History SDOH Food Worry 1 [facility] Start: 06-17-2022 History SDOH Transpo rt Med 2 [facility] Start: 01-16-2023 End: 10-29-2024 Tobacco use panel [facility] Work Phone: How hard is it for y ou to pay for the very basics like food, housing, medical care, and heating Not very hard [facility] Work Phone: Start: 05-09-2013 Adult Depression Screening Assessment 0 [facility] Work Phone: (I/We) worried miranda er (my/our) food would run out before (I/we) got money to buy more. Never true [facility] Work Phone: In the past 12 month s, was there a time when you were not able to pay the mortgage or rent on time? No [facility] Work Phone: Start: 01-04-2025 End: 07-05-2025 Alcoholic beverage intake Lifetime non-drinker (finding) [facility] Goals Date Patient Goal Desired Activity /State Personal health goal Functional Status Date Assessment Result Facility 01-02-2024 Are you deaf, or do you have serious difficulty hearing No 01/02/2024 3:07 PM Luis Eduardo Garcia RN No [facility] 01-02-2024 Are you blind, or do you have serious difficulty seeing, even when wearing glasses No 01/02/2024 3:07 PM Luis Eduardo Garcia RN No [facility] 01-02-2024 Do you have serious difficulty walking or climbing stairs No 01/02/2024 3:07 PM Luis Eduardo Garcia RN No [facility] 01-02-2024 Do you have difficul ty dressing or bathing No 01/02/2024 3:07 PM Luis Eduardo Garcia RN No [facility] 01-02-2024 Because of a physica l, mental, or emotional condition, do you have difficulty doing errands alone such as visiting a physician's office or shopping No 01/02/2024 3:07 PM Luis Eduardo Garcia RN No [facility] Mental Status Date Assessment Result Facility 01-02-2024 Because of a physica l, mental, or emotional condition, do you have serious difficulty concentrating, remembering, or making decisions No 01/02/2024 3:07 PM Luis Eduardo Garcia RN No [facility] Clinical Notes 10-14-2017 to 08-07-2025 Patient InstructionsShannen Flower APRN.CNP - 07/05/2025 2:30 PM EDTTelephone Encounter - Patricia Masterson MA - 05/15/2025 7:47 AM NADIRATJessica Durham MD - 04/11/2025 3:34 PM EDT Note Date & Type Note Facility 08-07-2025 Note HNO ID: [id number] Author: AURE TRINH MA Service: ? Author Type: Yard Coordinator Type: Progress Notes Filed: 08/07/2025 11:52 Note Text: Pt. Notified. Aure Trinh MA [facility] 08-04-2025 Note HNO ID: [id number] Author: MARCIO VASQUEZ APRN.CNP Service: ? Author Type: Nurse Practitioner Type: Progress Notes Filed: 08/04/2025 17:22 Note Text: Okay no change in medications, thank you! Marcio Vasquez APRN.ALICIA [facility] 08-04-2025 Note HNO ID: [id number] Author: AURE TRINH MA Service: ? Author Type: Yard Coordinator Type: Progress Notes Filed: 08/04/2025 15:28 Note Text: Patient identified by name and . Patient came in for nurse visit for blood pressure check . First reading was 160/92 after waiting 10 minutes it was 126/68.. please advise. Aure Trinh MA [facility] 07-07-2025 Note HNO ID: [id number] Author: MARCIO VASQUEZ APRN.ALICIA Service: ? Author Type: Nurse Practitioner Type: Progress Notes Filed: 07/18/2025 08:36 Note Text: Subjective The patient consented to the use of ambient AI software for draft documentation of the visit consistent with [facility]?s Notice of Privacy Practices. HPI Norma Singer is a 59-year-old male with a history of HTN and CHF, presenting for a follow-up visit. Norma reports significant fatigue, lack of motivation, and low energy levels. He has a history of PRERNA but does not currently use a CPAP machine due to feelings of claustrophobia and the noise disturbing his sleep. He is skeptical about the diagnosis of sleep apnea and is unsure if he would be able to tolerate a CPAP mask if retested. His last sleep study was conducted in May 2013, with a total AHI of 12.5. He sleeps with a fan blowing on his face, which he feels helps him sleep better. He wakes up 2-3 times per night to urinate. Norma reports periods of unhealthy eating with high sodium intake, alternating with healthier eating and intermittent fasting for 18 hours a day, which he feels helps his breathing. He experiences dyspnea and wheezing and believes his lungs are filling with water. He is currently taking Lasix 40 mg daily and Farxiga 5 mg daily. He recently saw his outside sales executive on July 05, with no medication changes made. A CTA coronary scan was ordered, and his last echocardiogram in September 2023 showed an LVEF of 46%. Norma has a history of stage 3 CKD and is due for blood work. He does not see a hand bootmaker. He also has a history of pre-diabetes and is due for a blood sugar check. He has a large number of skin tags around his neck and would like them removed, expressing a desire to see a new operations consultant for this. He has a history of low testosterone levels and was evaluated by endocrinology in March 2024, who explained that his sleep apnea would need to be treated before addressing his low testosterone. Norma requests a recheck of his testosterone levels. Norma has obesity with a BMI of 51 and is unable to take stimulants due to elevated and uncontrolled blood pressure. He does not want to take any controlled or addictive medications but is open to other weight loss medications. He has been experiencing epigastric pain and has a history of cholecystitis with cholelithiasis about 3 years ago. He was supposed to follow up with a surgeon regarding his gallbladder but did not because he was asymptomatic at the time. He denies chest pain. For blood pressure management, he is taking amlodipine 10 mg daily, metoprolol succinate 100 mg daily, losartan 100 mg daily, and hydralazine 10 mg TID. He is also on rosuvastatin 20 mg at bedtime. I reviewed past medical, surgical, social, and family histories today and updated chart. Allergies, chronic medications, and supplements were also reviewed. PAST MEDICAL HISTORY Diagnosis Date Arthritis Back pain Chronic congestive heart failure (HCC) 10/23/2023 GERD (gastroesophageal reflux disease) occasional History of transfusion Hypertension Obesity Obstructive sleep apnea 10/26/2012 Severe;Pt unable to tolerate wearing machine Pulmonary embolism, bilateral (HCC) 06/16/2022 Renal calculus 10/26/2010 Seasonal allergies Stage 3a chronic kidney disease (HCC) Stasis edema with recurrent cellulitis PAST SURGICAL HISTORY Procedure Laterality Date PROCEDURE 05/25/2022 IANDD back of left leg ALLERGIES Cat Dander and Hay Fever [Seasonal Allergies] MEDICATIONS FARXIGA 10 mg tablet TAKE 1/2 (ONE-HALF) OF A TABLET BY MOUTH ONCE DAILY with BREAKFAST metoprolol tartrate, short acting, (LOPRESSOR) 50 mg tablet Take one 50 mg tablet the evening prior to the CTA examination, take another 50 mg tablet the morning of the CTA examination. nitroglycerin sublingual (NITROQUICK) 0.3 mg SL tablet Dissolve 1 tablet under the tongue one time only for 1 dose. To be administered in Radiology for CTA exam rosuvastatin (CRESTOR) 20 mg tablet TAKE 1 TABLET BY MOUTH EVERY DAY AT BEDTIME hydrALAZINE (APRESOLINE) 10 mg tablet TAKE 1 TABLET BY MOUTH THREE TIMES DAILY apixaban (ELIQUIS) 5 mg tab(s) TAKE 1 TABLET BY MOUTH TWICE DAILY metoprolol succinate ER (TOPROL XL) 100 mg Take 1 tablet by mouth every afternoon. calcipotriene (DOVONEX) 0.005 % oint Apply 1 application to affected area once daily. For the lower legs. ammonium lactate (LAC-HYDRIN) 12 % cream Apply to affected area as needed. amLODIPine (NORVASC) 10 mg tablet take 1 tablet by mouth every day furosemide (LASIX) 40 mg tablet Take 1 tablet by mouth every afternoon. potassium chloride ER (KLOR-CON M20) 20 mEq tablet TAKE 2 TABLETS BY MOUTH ONCE DAILY WITH FUROSEMIDE. acetaminophen (TYLENOL) 500 mg tablet Take 2 tablets by mouth every 6 hours as needed for pain. losartan (COZAAR) 100 mg tablet Take 1 tablet by mouth every af (more content not included)... [facility] 07-05-2025 Instructions Shannen Flower APRN.BUSINESS SUPPORT ASSOCIATE - 07/05/2025 2:48 PM EDT Continue current regimen Monitor BP at home daily and reach out on Thursday with readings Call [phone] to check CTA Coronary Follow up in 6 months with OJ or Dr. Almaraz Please call if you have any questions or concerns Heart Failure What is heart failure? Heart failure (HF) means the heart is not pumping blood as well as it should. It may pump at a different speed, pump blood with less force, or pump less blood with each heartbeat. When less blood is flowing out of the heart to the body, muscles and other tissues may not get enough oxygen. The kidneys may not work as well to remove excess fluid in the form of urine. As a result, blood backs up into the blood vessels. The extra fluid seeps into the lungs or other parts of the body. Fluid in the lungs makes it hard to breathe. Fluid seeping into other parts of the body causes swelling. When there is too much fluid in the body, it puts more strain on the heart. Heart failure is one of the most common causes of heart-related illness and in the [place]. What is the cause? A number of things can cause heart failure, such as: Narrowing or blockage in the arteries that bring blood to the heart muscle Infection of the heart Heart attack High blood pressure Heart valve problems Genetic problems with the heart muscle Alcoholism Diabetes Lung disease Problems that may worsen or trigger heart failure, especially if your heart muscle is weak, include: Severe anemia (a low level of red blood cells) An overactive or underactive thyroid gland Infection A heartbeat that is too fast or too slow Too much salt or fluid in the diet Working your body too hard with exercise or daily activities Emotional stress What are the symptoms? The symptoms of heart failure may include: Shortness of breath or trouble breathing, at first just during exercise, then with any activity, and finally even when you are resting Waking up at night with trouble breathing or being unable to lie flat in bed because of shortness of breath Coughing Swollen ankles, feet, and legs Weight gain caused by extra fluid in the body Feeling tired most of the time and not able to do your usual activities Lack of appetite and feeling sick to your stomach Feeling like your heart is racing or fluttering Lightheadedness or fainting How is it diagnosed? Your healthcare provider will ask about your symptoms and examine you. Tests may include: Chest X-ray An ECG (also called an EKG), which measures and records your heartbeat Blood or urine tests Echocardiogram, which uses sound waves (ultrasound) to see how well your heart muscle is pumping How is it treated? Heart failure can be treated and managed. The goals of treatment are: Help your heart so it doesn t have to work as hard Help your heart pump blood better Get rid of extra water in your body Your healthcare provider may prescribe medicine to relax the blood vessels and lower blood pressure. Then the heart doesn t have to work as hard. You may need to take 2 or more medicines to treat your heart failure. It may take several weeks or months to find the best treatment for you. In some cases, heart failure can get better and even be cured. For example, if it is caused by an infection, it may be cured with treatment of the infection. Heart failure due to coronary artery disease is generally not cured and most often gets worse over time. However, carefully following your treatment plan can: Slow down the worsening of heart failure and help you live longer Help prevent trips to the hospital Help you feel better and do more How can I take care of myself? If you have heart failure, there are things you can do to take care of yourself now and prevent problems in the future. Follow your treatment plan and know how to take your medicines. Work as a partner with your provider. This means having regular provider visits and following your treatment plan. Follow the directions that come with your medicine, including information about food or alcohol. Make sure you know how and when to take your medicine. Do not take more or less than you are supposed to take. Many medicines have side effects. A side effect is a symptom or problem that is caused by the medicine. Ask your healthcare provider or pharmacist what side effects your medicine may cause and what you should do if you have side effects. Ask if you should avoid some nonprescription medicines. Don t smoke, eat a healthy diet, and watch your weight and blood pressure. Quit smoking if you are a smoker. Lose weight if you are overweight and eat a healthy diet. ?Follow a low-salt (low-sodium) diet if it is recommended by your provider. Too much salt makes your body keep too much water and makes your heart have to work harder. ?Follow your healthcare provider's advice about how much liquid you should drink. ?Ask your provider if you should avoid drinking alcohol. Alcohol can weaken your heart or may worsen heart failure. Also, some of your medicines may not work well if you drink alcohol. Weigh yourself every morning after you use the bathroom but before you eat or drink anything. Weighing yourself every day helps you know if extra fluid is building up in your body. A buildup of fluid is a sign that your heart failure may be getting worse. Weight gain can let you know about fluid buildup before you start having swelling. Keep track of your weight in a diary or on the calendar. Ask your healthcare provider when you should report weight gain. Letting your provider know about weight gain when it first happens can save you a trip to the emergency room or a stay in the hospital. Also check your pulse and blood pressure every day. Learn how to take your own blood pressure or have a family member learn how to take it. Be as physically active as you can. How active you can be depends on how bad the heart failure is. A program of gentle exercise helps most people. Your provider can tell you what level of exercise is right for you. Exercise helps your heart and body get stronger. It also improves your blood flow and energy level. Don t exercise outdoors if it is very hot, cold, humid, or smoggy. Balance exercise with rest. Make sure that your activities don t make you too tired or short of breath. Take rest breaks during the day. Avoid getting very hot or cold because it may make your heart work harder. Try to lessen the stress in your life. Anxiety and anger can cause a fast heart rate and high blood pressure. If you need help with this, ask your healthcare provider. Protect yourself against infections. Get a flu shot every year. When you have heart failure, you should not get the nasal spray vaccine (FluMist). Get the pneumococcal shot. Ask your healthcare provider: How and when you will hear your test results How long it will take to recover What activities you should avoid and when you can return to your normal activities How to take care of yourself at home What symptoms or problems you should watch for and what to do if you have them Make sure you know when you should come back for a checkup. How can I help prevent heart failure? You can prevent this disease with a heart-healthy lifestyle: Eat a healthy diet and keep a healthy weight. Stay fit with the right kind of exercise for you. Decrease stress. Don t smoke. Limit your use of alcohol. Talk to your healthcare provider about your personal and family medical history and your lifestyle habits. This will help you know what you can do to lower your risk for heart failure. Developed by [employer]. Published by [employer]. Copyright 2014 [employer] and/or one of its subsidiaries. All rights reserved. High Blood Pressure: Essential Hypertension What is high blood pressure? Blood pressure is the force of blood against artery askew as the heart pumps blood through the body. You may be told that you have high blood pressure (hypertension) if your blood pressure is higher than normal. Hypertension is called essential when no cause for it can be found. When the cause of hypertension is known, such as kidney disease or a tumor, it is called secondary hypertension. Blood pressure can rise and fall with exercise, rest, or emotions. Normal resting blood pressure ranges up to 120/80 (120 over 80). The first number (120 in this example) is the pressure when the heart beats and pushes blood out to the rest of the body. The second number (80 in this example) is the pressure when the heart rests between beats. Blood pressure is borderline high if it is 120/80 or higher but less than 140/90. High blood pressure is 140/90 or higher. If you have chronic kidney disease, 130/80 or higher is considered high blood pressure. Why is high blood pressure a problem? High blood pressure is a problem in many ways. Your heart has to work harder to pump blood through your body. The added workload on the heart causes thickening of the heart muscle. Over time, the thickening damages the heart muscle so that it can no longer pump normally. This can lead to a disease called heart failure. The higher pressure in your arteries may cause them to weaken and bleed, resulting in a stroke. As you get older, blood vessels may become hardened. High blood pressure speeds up this process. Hardened or narrowed arteries may not be able to supply enough blood to all parts of your body. High blood pressure may lead to atherosclerosis, in which deposits of cholesterol, fatty substances, and blood cells clog up an artery. Atherosclerosis is the leading cause of heart attacks. It can also cause strokes. Your kidneys, brain, and eyes may also be damaged. You may need treatment for high blood pressure for the rest of your life. However, proper treatment can control your blood pressure and help prevent heart disease, heart attack, or stroke. It can also help prevent long-term health problems, such as heart failure, kidney failure, blindness, and dementia. If you already have some complications, such as breathing problems or chest pain, lowering your blood pressure may make these problems less severe. What is the cause? There are no clear causes of essential hypertension. However, many things can increase blood pressure, such as: Being overweight Smoking Eating a diet high in salt Drinking a lot of alcohol Other important factors include: Race. Americans are more likely to have high blood pressure. Gender. Males have a greater chance of developing high blood pressure than women until age 55. After the age of 75, women are more likely to develop high blood pressure than men. Heredity. If you have parents with high blood pressure, you are more at risk. Age. The older you get, the more likely you are to have high blood pressure. Also, some medicines increase blood pressure. Stress and drinking caffeine can make blood pressure go up temporarily but it s not clear that they have any long-term effects on blood pressure. What are the symptoms? You may have high blood pressure for a long time without symptoms. You may not be able to tell by the way you feel that your blood pressure is high. The only way to find out if your blood pressure is high is to have it measured. That's why it s important to have your blood pressure checked at least once a year. When high blood pressure does cause symptoms, they may include: Headaches Nosebleeds Getting tired easily Blurred vision Dizziness Fast or irregular heartbeat Shortness of breath Chest pain How is it diagnosed? Blood pressure is checked at most healthcare visits. High blood pressure is usually discovered during one of these visits. If your blood pressure is high, you will be asked to return for follow-up checks. Your healthcare provider will ask about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 bowel habits such as new-onset constipation or diarrhea. He has no family history of colon cancer among blood relatives, though his has been diagnosed with the condition. Norma has a history of CHF and experiences dyspnea, particularly on hot days or when walking long distances. He denies hemoptysis or a chronic cough and is a nonsmoker, having quit smoking in 1982. He denies a history of [place], CVA, seizures, or syncope. He also denies any history of DM, CKD, HTN, or COPD. His surgical history includes a procedure on a leg wound and an endoscopic procedure to remove gallstones, but he still retains his gallbladder. He denies any history of fractures, hip or knee replacements, back or neck surgeries, or appendectomy. PAST MEDICAL HISTORY Diagnosis Date Arthritis Back pain Chronic congestive heart failure (HCC) 10/23/2023 GERD (gastroesophageal reflux disease) occasional History of transfusion Hypertension Obesity Obstructive sleep apnea 10/26/2012 Severe;Pt unable to tolerate wearing machine Pulmonary embolism, bilateral (HCC) 06/16/2022 Renal calculus 10/26/2010 Seasonal allergies Stage 3a chronic kidney disease (HCC) Stasis edema with recurrent cellulitis PAST SURGICAL HISTORY Procedure Laterality Date PROCEDURE 05/25/2022 I&D back of left leg Current Outpatient Medications Medication Sig apixaban (ELIQUIS) 5 mg tab(s) TAKE 1 TABLET BY MOUTH TWICE DAILY FARXIGA 10 mg tablet TAKE 1/2 (ONE-HALF) OF A TABLET BY MOUTH ONCE DAILY with BREAKFAST metoprolol succinate ER (TOPROL XL) 100 mg Take 1 tablet by mouth every afternoon. hydrALAZINE (APRESOLINE) 10 mg tablet TAKE 1 TABLET BY MOUTH THREE TIMES A DAY rosuvastatin (CRESTOR) 20 mg tablet TAKE 1 TABLET BY MOUTH EVERYDAY AT BEDTIME losartan (COZAAR) 100 mg tablet Take 1 tablet by mouth every afternoon. amLODIPine (NORVASC) 10 mg tablet take 1 tablet by mouth every day furosemide (LASIX) 40 mg tablet Take 1 tablet by mouth every afternoon. potassium chloride ER (KLOR-CON M20) 20 mEq tablet TAKE 2 TABLETS BY MOUTH ONCE DAILY WITH FUROSEMIDE. acetaminophen (TYLENOL) 500 mg tablet Take 2 tablets by mouth every 6 hours as needed for pain. peg 3350-Electrolytes (GOLYTELY) 236-22.74-6.74 -5.86 gram suspension Take 4,000 mL by mouth one time only for 1 dose. Refer to printed prep instructions from your provider. calcipotriene (DOVONEX) 0.005 % oint Apply 1 application to affected area once daily. For the lower legs. ammonium lactate (LAC-HYDRIN) 12 % cream Apply to affected area as needed. No current facility-administered medications for this visit. ALLERGIES: Cat Dander and Hay Fever [Seasonal Allergies] PERSONAL HISTORY: Social History Tobacco Use Smoking status: Former Current packs/day: 0.00 Average packs/day: 1 pack/day for 14.0 years (14.0 ttl pk-yrs) Types: Cigarettes Start date: 05/11/1969 Quit date: 05/11/1983 Years since quittin.9 Smokeless tobacco: Never Vaping Use Vaping status: Never Used Substance Use Topics Alcohol use: Never Comment: no alcohol since 17years old, strong family history Drug use: No Comment: Former use FAMILY HISTORY: FAMILY HISTORY Problem Relation Age of Onset Cancer Mother pancreatic- at age 81 Diabetes Mother Hypertension Mother Thyroid Mother Cancer Father lung cancer- at age 72 Alcohol/Drug Brother drugs and alcohol Alcohol/Drug Sister drugs and alcohol Alcohol/Drug Sister drugs and alcohol Alcohol/Drug Sister drugs and alcohol Breast Cancer Maternal Aunt REVIEW OF SYSTEMS: Respiratory: (+) shortness of breath Gastrointestinal: (-) hematochezia, (-) constipation, (-) diarrhea See HPI PHYSICAL EXAMINATION: General: The patient is 59 year old male, well nourished, well hydrated in no acute distress. The patient is oriented to time, place, and person. VITALS: Blood pressure 126/80, pulse 77, resp. rate 18, height 186.7 cm (6' 1.5), weight (!) 176 kg (388 lb), SpO2 97%. Body mass index is 50.5 kg/m . Head: Normal cephalic, atraumatic Eyes: pupils are equally round, sclera are clear/anicteric, wearing glasses Neck is supple with no tracheal deviation Cardiac: normal heart sounds, regular Respiratory: Normal respiratory excursion and pattern. Abdominal exam: benign Extremities: no clubbing, cyanosis or edema. Neuro: non focal Psych: normal mood The sensitive examination was discussed with the Patient or Patient's Authorized Manager Highway. As applicable, any other physician, advance practice provider, medical student, or other health professional student that will be observing or involved in the sensitive examination for educational or training purposes was discussed with the Patient or Authorized Manager Highway. The Patient or Authorized Manager Highway has agreed to proceed with the sensitive examination. (Sensitive examination includes inspection and/or palpation of the breasts, pelvis, prostate and anorectal regions) Assessment IMPRESSION: screening for colon cancer PLAN: I have discussed the above with the patient. I have offered colonoscopy , possible biopsies I have explained the procedure to the patient. I have counseled the patient as to the risks of the procedure, including but not limited to: infection, bleeding, injury to any intrabdominal organs such as liver/spleen, perforation of the GI tract, inability to complete the procedure, complications of anesthesia, etc. - the patient understands. The patient wishes to proceed. I have answered all questions to the patient s satisfaction and the patient has no further questions. I have educated the patient as to the colon cleansing regimen and I have prescribed Golytely for the colon cleansing solution. The patient will be scheduled for the procedure at [facility]. Diagnoses: (Z12.11, Z12.12) Encounter for colorectal cancer screening (I50.22) Chronic systolic CHF (congestive heart failure) (HCC) (Z68.43) BMI 50.0-59.9, adult (HCC) I have confirmed and edited as necessary, the PFSH and ROS obtained by others. Consultation requested by Marcio Vasquez for an opinion regarding patient's screening for colon cancer. My final recommendations will be communicated back to the requesting physician by way of shared Medical record or letter to requesting physician via US mail. Recording using [email or web address] software for draft documentation of the visit was discussed with the patient/authorized digital media representative; all questions welcomed and answered. Patient/authorized digital media representative agreed to proceed Medical Decision Making: Problems: Low: Stable chronic illness Risk: Low: Low risk from testing/treatment Medical Decision Making Level: 3 - Low Jessica Durham MD documented in this encounter [facility] 04-11-2025 Instructions Jessica Durham MD - 04/11/2025 3:26 PM EDT COLONOSCOPY BOWEL PREPARATION INSTRUCTIONS GOLYTELY/NULYTELY/TRILYTE/COLYTE Your doctor has scheduled you for a colonoscopy. To have a successful colonoscopy, you must have a clean colon, that is empty. A clean colon allows your doctor to see the entire colon & diagnose issues like polyps or cancer. For doctors, a clean colon is like driving on a ernesto day; a dirty colon like driving in a storm. It is very important that you follow these instructions exactly, or your colonoscopy might not be as effective, could be canceled, and you may need to do the bowel prep and the colonoscopy again. TRANSPORTATION REQUIREMENTS You are receiving IV sedation. For your safety, a responsible adult escort must accompany you to and from your procedure: Your adult escort MUST be present with you at check-in for your colonoscopy. Your adult escort MUST remain in the endoscopy area until you are discharged. Your adult escort MUST transport you home once you are discharged. You are NOT allowed to operate any form of transportation (i.e. drive a car, bicycle, etc.) or leave the Endoscopy Center ALONE. It is not safe to do so. If you cannot meet these requirements, your procedure will be canceled. MEDICATION REQUIREMENTS For your safety, certain medications will need to be stopped or adjusted before you can have your procedure: BLOOD THINNERS: If you take blood thinners, such as Coumadin (warfarin), Plavix (clopidogrel), Ticlid (ticlopidine hydrochloride), Agrylin (anagrelide), Xarelto (Rivaroxaban), Pradaxa (Dabigatran), Eliquis (Apixaban), or Effient (Prasugrel), contact the physician who is prescribing these medications at least 2 weeks prior to your procedure to discuss any necessary adjustments. DIABETES: If you take medications for diabetes, your dosage may need to be adjusted. If you are being treated for diabetes with insulin, diabetic pills, or other injectable medications do not take your REGULAR dose after midnight on the day of your procedure. If you are taking any other types of insulin such as Lantus, Humalog, NPH (long-acting insulin), or 70/30 insulin, take half your normal dose the day before your procedure. DIABETES/WEIGHT MANAGEMENT: If you take medications for weight-loss, your dosage may need to be adjusted Contact the doctor who prescribes this medication for further instructions. If you take medications for weight-loss like semaglutide (Ozempic, Wegovy, Rybelsus), dulaglutide (Trulicity), liraglutide (Victoza, Saxenda), exenatide (Byetta, Bydureon), or lixisenatide (Adylyxin), stop your medication 1 week prior to your procedure. If you take medications like canagliflozin (Invokana), dapagliflozin (Farxiga, Forxiga), empagliflozin (Jardiance), stop your medication 3 days prior to your procedure. If you take ertugliflozin (Steglatro) stop your medication 4 days prior to your procedure. IRON: If you take iron pills, STOP them 1 week BEFORE your procedure, may resume after. OTHER MEDS: May take all other medications (including aspirin, antibiotics, water pills / diuretics like Lasix or Metolozone, blood pressure meds, etc.) at their usual scheduled time with a sip of water. DIET REQUIREMENTS The day before your colonoscopy, you may have a clear liquid diet (see below). The day of your colonoscopy, you may continue a clear liquid diet until 3 hours before your colonoscopy. Within 3 hours of your colonoscopy, take only any medications (as above) with a sip of water. Clear Liquid Diet Broth (chicken, beef or vegetable broth or bullion. Just the broth, no solids). Water Coffee or Tea (NO milk or creamer), but sugar and sugar substitutes are allowed. Clear liquids including clear, yellow, green, blue (NO red, NO orange, NO purple) Sodas / soft drinks Gatorade or other sports drinks Bill-Aid or flavored drinks Plain Jell-O or other gelatins Fruit juice (strained; no-pulp) Popsicles or hard candy BOWEL PREPARATION (GOLYTELY/NULYTELY/TRILYTE/COLYTE) Split Dosing Bowel Prep: This means drinking your bowel prep in two doses. Split dosing helps clean your colon better and makes it less likely that your procedure will be canceled. Fill your prescription for Golytely/Nulytely/Trilyte/Colyte: The afternoon before your colonoscopy, mix the solution and refrigerate. You may add the flavor pack (if present) that came with the bowel preparation. Do not add ice, sugar, or other flavorings to the solution. You will drink your prep in two doses, by several hours. Drink both halves the day prior to the procedure Bowel prep can work differently from person to person. Some people's bowels move slowly and they may need different instructions. Please see your doctor in office or virtually for personalized bowel prep instructions if you have: Medical condition that needs special accommodations Had a poor bowel prep results or failed bowel prep attempts in the past. Had difficulty with anesthesia during the procedure. FREQUENTLY ASKED QUESTIONS Q: What if I suffer from constipation? A: Recommend taking extra laxatives to resolve your constipation days prior to entering the bowel prep day. Q: What if have had prior poor preps results in past? A: Contact your physician as you will likely need additional bowel prep instructions. Q: What if I have motility issues like Parkinson's, MS (multiple sclerosis), wheelchair dependent, etc.? or on medications that slow bowel emptying (narcotics, gabapentin, anticholinergic medications etc.) A: Contact your physician as you will likely need extra time and additional laxatives to complete your bowel prep. Q: What if I cannot drink large volume of liquid? A: Start your prep 2-3 hours earlier to allow yourself more time to complete the entire prep. Q: What if I can't finish my bowel prep? A: If you cannot finish your entire bowel prep, it is likely that your colonoscopy will need to be rescheduled due to poor prep quality. Q: What if I had bariatric surgery? Do I still have to complete the entire prep? A: Yes, gastric bypass surgery involves the stomach & small bowel. You may need to drink smaller amounts, slower (may need more time to complete your bowel prep). Gastric bypass does not alter the length of your colon so you will need to complete the entire bowel prep, it may just take longer time to complete it. Q: What if I am on dialysis? A: Please consult your hand bootmaker prior to scheduling to get instructions pertinent to you. In general, dialysis patients take the [employer] bowel prep and have the procedure same day of their dialysis (colonoscopy in AM, dialysis in PM). Q: How do I know if something is considered as clear liquid diet? A: If you can pour it in a glass and you can see through it, it is considered clear liquid Q: Can I eat nuts, seeds, beans, popcorn, dried fruits, vegetables & fruits that have skin peel? A: No, you will need to not eat these items starting 5 days prior to procedure. Q: Can I take Uber/Lyft/taxi/bus home? A: An adult MUST be present with you at check-in for your colonoscopy and remain in the endoscopy area until you are discharged. You can take Uber home only if this adult escort is with you at check in, remain in the endoscopy area until you are discharged, and takes the Uber with you to home. Q: Can I sleep it off here and drive myself home? A: No, you must have an adult with you at time of procedure check in, remain in the endoscopy center during your procedure, and drive you home. You cannot drive a vehicle after your procedure the rest of the day. documented in this encounter [facility] 01-04-2025 Note HNO ID: [id number] Author: MARCIO VASQUEZ APRN.BUSINESS SUPPORT ASSOCIATE Service: ? Author Type: Nurse Practitioner Type: Progress Notes Filed: 01/05/2025 00:09 Note Text: Subjective Norma Singer is a 59 year old male here today for well adult exam. I reviewed past medical, surgical, social, and family histories today and updated chart. Allergies, chronic medications, and supplements were also reviewed. HPI Feeling okay He is having pain in the left shoulder blade x 1 month Thinks its strained from push ups Pains is intermittent, just comes on all of sudden Pain is sharp - stabbing Can tell something is there right now Worse with laying on side Preventative Health: Prostate cancer screening - never had done Colorectal cancer screening - Had a colonoscopy within the last 10 years in [place], no polyps Lipid screening - October Quit smoking 1982 PAST MEDICAL HISTORY Diagnosis Date Arthritis Back pain Chronic congestive heart failure (HCC) 10/23/2023 GERD (gastroesophageal reflux disease) occasional History of transfusion Hypertension Obesity Obstructive sleep apnea 10/26/2012 Severe;Pt unable to tolerate wearing machine Pulmonary embolism, bilateral (HCC) 06/16/2022 Renal calculus 10/26/2010 Seasonal allergies Stage 3a chronic kidney disease (HCC) Stasis edema with recurrent cellulitis PAST SURGICAL HISTORY Procedure Laterality Date PROCEDURE 05/25/2022 IANDD back of left leg ALLERGIES Cat Dander and Hay Fever [Seasonal Allergies] MEDICATIONS metoprolol succinate ER (TOPROL XL) 100 mg Take 1 tablet by mouth every afternoon. ELIQUIS 5 mg tab(s) TAKE 1 TABLET BY MOUTH TWICE A DAY hydrALAZINE (APRESOLINE) 10 mg tablet TAKE 1 TABLET BY MOUTH THREE TIMES A DAY FARXIGA 10 mg tablet TAKE 0.5 TABLETS BY MOUTH DAILY WITH BREAKFAST. rosuvastatin (CRESTOR) 20 mg tablet TAKE 1 TABLET BY MOUTH EVERYDAY AT BEDTIME losartan (COZAAR) 100 mg tablet Take 1 tablet by mouth every afternoon. calcipotriene (DOVONEX) 0.005 % oint Apply 1 application to affected area once daily. For the lower legs. ammonium lactate (LAC-HYDRIN) 12 % cream Apply to affected area as needed. amLODIPine (NORVASC) 10 mg tablet take 1 tablet by mouth every day furosemide (LASIX) 40 mg tablet Take 1 tablet by mouth every afternoon. potassium chloride ER (KLOR-CON M20) 20 mEq tablet TAKE 2 TABLETS BY MOUTH ONCE DAILY WITH FUROSEMIDE. acetaminophen (TYLENOL) 500 mg tablet Take 2 tablets by mouth every 6 hours as needed for pain. FAMILY HISTORY Problem Relation Age of Onset Cancer Mother pancreatic- at age 81 Diabetes Mother Hypertension Mother Thyroid Mother Cancer Father lung cancer- at age 72 Alcohol/Drug Brother drugs and alcohol Alcohol/Drug Sister drugs and alcohol Alcohol/Drug Sister drugs and alcohol Alcohol/Drug Sister drugs and alcohol Breast Cancer Maternal Aunt Social History Tobacco Use Smoking status: Former Current packs/day: 0.00 Average packs/day: 1 pack/day for 14.0 years (14.0 ttl pk-yrs) Types: Cigarettes Start date: 05/11/1969 Quit date: 05/11/1983 Years since quittin.6 Smokeless tobacco: Never Vaping Use Vaping status: Never Used Substance Use Topics Alcohol use: Never Comment: no alcohol since 17years old, strong family history Drug use: No Comment: Former use Review of Systems Constitutional: Negative for appetite change, chills, fatigue, fever and unexpected weight change. HENT: Positive for hearing loss. Negative for congestion, ear pain, rhinorrhea and sore throat. Eyes: Negative for pain, discharge, itching and visual disturbance. Respiratory: Positive for shortness of breath (with activity). Negative for cough and wheezing. Cardiovascular: Positive for leg swelling. Negative for chest pain and palpitations. Gastrointestinal: Negative for abdominal pain, constipation, diarrhea, nausea and vomiting. Genitourinary: Negative for difficulty urinating. Musculoskeletal: Positive for back pain. Negative for arthralgias. Skin: Negative for rash. Neurological: Negative for dizziness, tremors, weakness and headaches. Psychiatric/Behavioral: Negative for dysphoric mood and sleep disturbance. The patient is not nervous/anxious. Objective BP 126/78 Pulse 75 Temp (Src) 97.8 (Oral) Resp 18 Ht 6' 2 (1.88m) Wt 392 lb (177.8kg) SpO2 95% BMI 50.31 kg/(m2). Physical Exam Constitutional: Appearance: Normal appearance. He is well-developed. HENT: Head: Normocephalic and atraumatic. Right Ear: Hearing, tympanic membrane, ear canal and external ear normal. No drainage. Left Ear: Hearing, tympanic membrane, ear canal and external ear normal. No drainage. Nose: Nose normal. Mouth/Throat: Pharynx: Uvula midline. Eyes: General: Lids are normal. Right eye: No discharge. Left eye: No discharge. Conjunctiva/sclera: Conjunctivae normal. Pupils: Pupils are equal, round, and reactive t (more content not included)... [facility] 01-04-2025 History of Present illness Narrative Images from the original note were not included. Subjective Norma Singer is a 59 year old male here today for well adult exam. I reviewed past medical, surgical, social, and family histories today and updated chart. Allergies, chronic medications, and supplements were also reviewed. HPI Feeling okay He is having pain in the left shoulder blade x 1 month Thinks its strained from push ups Pains is intermittent, just comes on all of sudden Pain is sharp - stabbing Can tell something is there right now Worse with laying on side Preventative Health: Prostate cancer screening - never had done Colorectal cancer screening - Had a colonoscopy within the last 10 years in [place], no polyps Lipid screening - October Quit smoking 1982 PAST MEDICAL HISTORY Diagnosis Date Arthritis Back pain Chronic congestive heart failure (HCC) 10/23/2023 GERD (gastroesophageal reflux disease) occasional History of transfusion Hypertension Obesity Obstructive sleep apnea 10/26/2012 Severe;Pt unable to tolerate wearing machine Pulmonary embolism, bilateral (HCC) 06/16/2022 Renal calculus 10/26/2010 Seasonal allergies Stage 3a chronic kidney disease (HCC) Stasis edema with recurrent cellulitis PAST SURGICAL HISTORY Procedure Laterality Date PROCEDURE 05/25/2022 I&D back of left leg ALLERGIES Cat Dander and Hay Fever [Seasonal Allergies] MEDICATIONS metoprolol succinate ER (TOPROL XL) 100 mg Take 1 tablet by mouth every afternoon. ELIQUIS 5 mg tab(s) TAKE 1 TABLET BY MOUTH TWICE A DAY hydrALAZINE (APRESOLINE) 10 mg tablet TAKE 1 TABLET BY MOUTH THREE TIMES A DAY FARXIGA 10 mg tablet TAKE 0.5 TABLETS BY MOUTH DAILY WITH BREAKFAST. rosuvastatin (CRESTOR) 20 mg tablet TAKE 1 TABLET BY MOUTH EVERYDAY AT BEDTIME losartan (COZAAR) 100 mg tablet Take 1 tablet by mouth every afternoon. calcipotriene (DOVONEX) 0.005 % oint Apply 1 application to affected area once daily. For the lower legs. ammonium lactate (LAC-HYDRIN) 12 % cream Apply to affected area as needed. amLODIPine (NORVASC) 10 mg tablet take 1 tablet by mouth every day furosemide (LASIX) 40 mg tablet Take 1 tablet by mouth every afternoon. potassium chloride ER (KLOR-CON M20) 20 mEq tablet TAKE 2 TABLETS BY MOUTH ONCE DAILY WITH FUROSEMIDE. acetaminophen (TYLENOL) 500 mg tablet Take 2 tablets by mouth every 6 hours as needed for pain. FAMILY HISTORY Problem Relation Age of Onset Cancer Mother pancreatic- at age 81 Diabetes Mother Hypertension Mother Thyroid Mother Cancer Father lung cancer- at age 72 Alcohol/Drug Brother drugs and alcohol Alcohol/Drug Sister drugs and alcohol Alcohol/Drug Sister drugs and alcohol Alcohol/Drug Sister drugs and alcohol Breast Cancer Maternal Aunt Social History Tobacco Use Smoking status: Former Current packs/day: 0.00 Average packs/day: 1 pack/day for 14.0 years (14.0 ttl pk-yrs) Types: Cigarettes Start date: 05/11/1969 Quit date: 05/11/1983 Years since quittin.6 Smokeless tobacco: Never Vaping Use Vaping status: Never Used Substance Use Topics Alcohol use: Never Comment: no alcohol since 17years old, strong family history Drug use: No Comment: Former use Review of Systems Constitutional: Negative for appetite change, chills, fatigue, fever and unexpected weight change. HENT: Positive for hearing loss. Negative for congestion, ear pain, rhinorrhea and sore throat. Eyes: Negative for pain, discharge, itching and visual disturbance. Respiratory: Positive for shortness of breath (with activity). Negative for cough and wheezing. Cardiovascular: Positive for leg swelling. Negative for chest pain and palpitations. Gastrointestinal: Negative for abdominal pain, constipation, diarrhea, nausea and vomiting. Genitourinary: Negative for difficulty urinating. Musculoskeletal: Positive for back pain. Negative for arthralgias. Skin: Negative for rash. Neurological: Negative for dizziness, tremors, weakness and headaches. Psychiatric/Behavioral: Negative for dysphoric mood and sleep disturbance. The patient is not nervous/anxious. Objective BP 126/78 Pulse 75 Temp (Src) 97.8 (Oral) Resp 18 Ht 6' 2 (1.88m) Wt 392 lb (177.8kg) SpO2 95% BMI 50.31 kg/(m^2). Physical Exam Constitutional: Appearance: Normal appearance. He is well-developed. HENT: Head: Normocephalic and atraumatic. Right Ear: Hearing, tympanic membrane, ear canal and external ear normal. No drainage. Left Ear: Hearing, tympanic membrane, ear canal and external ear normal. No drainage. Nose: Nose normal. Mouth/Throat: Pharynx: Uvula midline. Eyes: General: Lids are normal. Right eye: No discharge. Left eye: No discharge. Conjunctiva/sclera: Conjunctivae normal. Pupils: Pupils are equal, round, and reactive to light. Neck: Thyroid: No thyromegaly. Vascular: No carotid bruit. Cardiovascular: Rate and Rhythm: Normal rate and regular rhythm. Heart sounds: Normal heart sounds. No murmur heard. Pulmonary: Effort: Pulmonary effort is normal. Breath sounds: Normal breath sounds. No wheezing, rhonchi or rales. Abdominal: General: Bowel sounds are normal. There is no distension or abdominal bruit. Palpations: Abdomen is soft. There is no mass. Tenderness: There is no abdominal tenderness. Musculoskeletal: Cervical back: Normal range of motion. Back: Right lower le+ Edema present. Left lower le+ Edema present. Lymphadenopathy: Cervical: No cervical adenopathy. Upper Body: Right upper body: No supraclavicular adenopathy. Left upper body: No supraclavicular adenopathy. Skin: General: Skin is warm and dry. Findings: No bruising or rash. Neurological: General: No focal deficit present. Mental Status: He is alert and oriented to person, place, and time. Cranial Nerves: No cranial nerve deficit. Sensory: Sensation is intact. Motor: Motor function is intact. Coordination: Coordination is intact. Gait: Gait is intact. Psychiatric: Attention and Perception: Attention and perception normal. Mood and Affect: Mood and affect normal. Speech: Speech normal. Behavior: Behavior normal. Behavior is cooperative. Thought Content: Thought content normal. Cognition and Memory: Cognition normal. Judgment: Judgment normal. Latest Ref [facility] 11/08/2024 Protein, Total 6.3 - 8.0 g/dL 6.9 Albumin 3.9 - 4.9 g/dL 3.8 (L) Calcium 8.5 - 10.2 mg/dL 9.0 Bilirubin, Total 0.2 - 1.3 mg/dL 0.7 Alkaline Phosphatase 38 - 113 U/L 77 AST -- ALT 10 - 54 U/L 22 Glucose 74 - 99 mg/dL 122 (H) BUN 9 - 24 mg/dL 20 Creatinine 0.73 - 1.22 mg/dL 1.30 (H) Sodium 136 - 144 mmol/L 139 Potassium 3.7 - 5.1 mmol/L 4.4 Chloride 98 - 107 mmol/L 104 CO2 22 - 30 mmol/L 25 Anion Gap 8 - 15 mmol/L 10 eGFR >=60 mL/min/1.73m 63 WBC 3.70 - 11.00 k/uL 7.50 RBC 4.20 - 6.00 m/uL 5.33 Hemoglobin 13.0 - 17.0 g/dL 15.9 Hematocrit 39.0 - 51.0 % 52.0 (H) MCV 80.0 - 100.0 fL 97.6 MCH 26.0 - 34.0 pg 29.8 MCHC 30.5 - 36.0 g/dL 30.6 RDW-CV 11.5 - 15.0 % 12.9 Platelet Count 150 - 400 k/uL 154 MPV 9.0 - 12.7 fL 10.6 Cholesterol, Total <200 mg/dL 177 Triglyceride <150 mg/dL 191 (H) HDL Cholesterol >39 mg/dL 34 (L) Non HDL Cholesterol <130 mg/dL 143 (H) Fasting Time hrs 12 VLDL Cholesterol <30 mg/dL 38 (H) TC:HDL Ratio <5.10 5.21 (H) LDL Cholesterol <100 mg/dL 105 (H) LDL:HDL Ratio <2.54 3.09 (H) ASSESSMENT/PLAN: 1. Well adult exam - ICD9: V70.0, ICD10: Z00.00 (primary diagnosis) - Counseled on healthy diet and regular exercise - Discussed need for and benefit of weight loss. BMI 50.33 kg/(m^2) - Colorectal cancer screening - ordered colonoscopy - Risks/benefits of prostate cancer screening discussed. screening PSA ordered - Follow up for annual exam in one year 2. Encounter for colorectal cancer screening - ICD9: V76.51, V76.41, ICD10: Z12.11, Z12.12 - CONSULT TO GENERAL SURGERY 3. Impaired fasting glucose - ICD9: 790.21, ICD10: R73.01 - HEMOGLOBIN A1C 4. Screening for prostate cancer - ICD9: V76.44, ICD10: Z12.5 - Counseled on healthy diet and regular exercise - Risks/benefits of prostate cancer screening discussed. screening PSA ordered - PSA/PROSTATE SPECIFIC ANTIGEN SCREENING 5. Chronic congestive heart failure, unspecified heart failure type (HCC) - ICD9: 428.0, ICD10: I50.9 - Stable on Farxiga, Lasix, losartan, metoprolol Continue care with cardiology - CONSULT TO CARDIOLOGY 6. Hyperlipidemia, mixed - ICD9: 272.2, ICD10: E78.2 Continue rosuvastatin 20 mg once a day - CONSULT TO CARDIOLOGY FU 6 months Marcio Vasquez APRN.ALICIA documented in this encounter [facility] 11-14-2024 Telephone encounter Note Patient notified. Aure Trinh MA [facility] 11-14-2024 Telephone encounter Note ----- Message from Marcio Vasquez APRN.CNP sent at 11/14/2024 5:08 PM EST ----- Labs are WNL besides the lipid panel. Continue crestor 20 mg once a day. Marcio Vasquez APRN.BUSINESS SUPPORT ASSOCIATE [facility] 11-14-2024 Miscellaneous Notes Patient notified. Aure Trinh MA ----- Message from Marcio Vasquez APRN.CNP sent at 11/14/2024 5:08 PM EST ----- Labs are WNL besides the lipid panel. Continue crestor 20 mg once a day. Marcio Vasquez APRN.BUSINESS SUPPORT ASSOCIATE documented in this encounter [facility] 10-28-2024 Note SARS-COV-2 (AGENT OF COVID-19) RNA: Not detected INFLUENZA A RNA: Not detected INFLUENZA B RNA: Not detected RESPIRATORY SYNCYTIAL VIRUS (RSV) RNA: Not detected [facility] Comment on above: Performed By: #### [id number] ####[facility] LABCLIA [id number] [place] [address] [facility] 10-21-2024 Telephone encounter Note patient electronically requesting refills as follows: Last seen 06/24/24 . Last refill 06/24/24 . Requested Prescriptions Pending Prescriptions Disp Refills metoprolol succinate ER (TOPROL XL) 100 mg 90 tablet 1 Sig: Take 1 tablet by mouth every afternoon. Please review and advise. Augustus Cazares MA [facility] 10-21-2024 Miscellaneous Notes patient electronically requesting refills as follows: Last seen 06/24/24 . Last refill 06/24/24 . Requested Prescriptions Pending Prescriptions Disp Refills metoprolol succinate ER (TOPROL XL) 100 mg 90 tablet 1 Sig: Take 1 tablet by mouth every afternoon. Please review and advise. Augustus Cazares MA documented in this encounter [facility] 10-10-2024 Telephone encounter Note pharmacy electronically requesting refills as follows: Last seen 06/24/24 . Last refill hydralazine 02/17/24. Requested Prescriptions Pending Prescriptions Disp Refills ELIQUIS 5 mg tab(s) [Pharmacy Med Name: ELIQUIS 5 MG TABLET] 180 tablet 1 Sig: TAKE 1 TABLET BY MOUTH TWICE A DAY hydrALAZINE (APRESOLINE) 10 mg tablet [Pharmacy Med Name: HYDRALAZINE 10 MG TABLET] 270 tablet 1 Sig: TAKE 1 TABLET BY MOUTH THREE TIMES A DAY Please review and advise. Augustus Cazares MA [facility] 10-10-2024 Miscellaneous Notes pharmacy electronically requesting refills as follows: Last seen 06/24/24 . Last refill hydralazine 02/17/24. Requested Prescriptions Pending Prescriptions Disp Refills ELIQUIS 5 mg tab(s) [Pharmacy Med Name: ELIQUIS 5 MG TABLET] 180 tablet 1 Sig: TAKE 1 TABLET BY MOUTH TWICE A DAY hydrALAZINE (APRESOLINE) 10 mg tablet [Pharmacy Med Name: HYDRALAZINE 10 MG TABLET] 270 tablet 1 Sig: TAKE 1 TABLET BY MOUTH THREE TIMES A DAY Please review and advise. Augustus Cazares MA documented in this encounter [facility] 10-04-2024 Telephone encounter Note Call placed to patient scheduled with Dr. Almaraz for 11-10-24 at 2 pm in [place]. Thanks Lili Mora [facility] 10-04-2024 Telephone encounter Note Last seen 01/28/2024. Please call patient with over due 6 month appointment. Thank you! Lluvia Lagos LPN [facility] 10-04-2024 Telephone encounter Note Patient's request for medication is as follows: Requested Prescriptions Pending Prescriptions Disp Refills dapagliflozin propanediol (FARXIGA) 10 mg tablet [Pharmacy Med Name: FARXIGA 10 MG TABLET] 45 tablet 0 Sig: TAKE 0.5 TABLETS BY MOUTH DAILY WITH BREAKFAST. Last seen 01/28/2024.[facility] with over due 6 month appointment. Prescription(s) as above. Please process accordingly. Lluvia Lagos LPN [facility] 10-04-2024 Miscellaneous Notes Patient's request for medication is as follows: Requested Prescriptions Pending Prescriptions Disp Refills dapagliflozin propanediol (FARXIGA) 10 mg tablet [Pharmacy Med Name: FARXIGA 10 MG TABLET] 45 tablet 0 Sig: TAKE 0.5 TABLETS BY MOUTH DAILY WITH BREAKFAST. Last seen 01/28/2024.Message sent to clerical to call patient with over due 6 month appointment. Prescription(s) as above. Please process accordingly. Lluvia Lagos LPN documented in this encounter [facility] 09-27-2024 Telephone encounter Note pharmacy electronically requesting refills as follows: Last seen 06/24/24 . Last refill 09/27/23 . Requested Prescriptions Pending Prescriptions Disp Refills rosuvastatin (CRESTOR) 20 mg tablet [Pharmacy Med Name: ROSUVASTATIN CALCIUM 20 MG TAB] 90 tablet 3 Sig: TAKE 1 TABLET BY MOUTH EVERYDAY AT BEDTIME Please review and advise. Augustus Cazares MA [facility] 09-27-2024 Miscellaneous Notes pharmacy electronically requesting refills as follows: Last seen 06/24/24 . Last refill 09/27/23 . Requested Prescriptions Pending Prescriptions Disp Refills rosuvastatin (CRESTOR) 20 mg tablet [Pharmacy Med Name: ROSUVASTATIN CALCIUM 20 MG TAB] 90 tablet 3 Sig: TAKE 1 TABLET BY MOUTH EVERYDAY AT BEDTIME Please review and advise. Augustus Cazares MA documented in this encounter [facility] 06-26-2024 Miscellaneous Notes Call placed to patient scheduled with Dr. Almaraz for 11-10-24 at 2 pm in [place]. Thanks Lili Mora Last seen 01/28/2024. Please call patient with over due 6 month appointment. Thank you! Lluvia Lagos LPN documented in this encounter [facility] 06-24-2024 Instructions Marcio Vasquez APRN.ALICIA - 06/24/2024 11:15 AM EDT Please get labs done prior to next appointment documented in this encounter [facility] 06-24-2024 History of Present illness Narrative Subjective Norma Singer is a 58 year old male here today for HTN follow-up visit. I reviewed past medical, surgical, social, and family histories today and updated chart. Allergies, chronic medications, and supplements were also reviewed. Hypertension Associated symptoms include shortness of breath (with warmer weather, humidity). Pertinent negatives include no chest pain, headaches or palpitations. Feeling well today. Denies chest pains, palpitations, headache, dizziness, and vision changes. He completed his home sleep study - results pending Continues amlodipine, hydralazine, Toprol for hypertension. No side effects He works on low sodium diet, increasing vegetables He is active around his home PAST MEDICAL HISTORY No date: Arthritis No date: Back pain 10/23/2023: Chronic congestive heart failure (HCC) No date: GERD (gastroesophageal reflux disease) Comment: occasional No date: History of transfusion No date: Hypertension No date: Obesity 10/26/2012: Obstructive sleep apnea Comment: Severe;Pt unable to tolerate wearing machine 06/16/2022: Pulmonary embolism, bilateral (HCC) 10/26/2010: Renal calculus No date: Seasonal allergies No date: Stage 3a chronic kidney disease (HCC) No date: Stasis edema Comment: with recurrent cellulitis PAST SURGICAL HISTORY 05/25/2022: PROCEDURE Comment: I&D back of left leg ALLERGIES Cat Dander and Hay Fever [Seasonal Allergies] MEDICATIONS calcipotriene (DOVONEX) 0.005 % oint Apply 1 application to affected area once daily. For the lower legs. apixaban (ELIQUIS) 5 mg tab(s) Take 1 tablet by mouth two times a day. ammonium lactate (LAC-HYDRIN) 12 % cream Apply to affected area as needed. hydrALAZINE (APRESOLINE) 10 mg tablet Take 1 tablet by mouth three times a day. dapagliflozin propanediol (FARXIGA) 10 mg tablet Take 0.5 tablets by mouth daily with breakfast. amLODIPine (NORVASC) 10 mg tablet take 1 tablet by mouth every day metoprolol succinate ER (TOPROL XL) 100 mg take 1 tablet by mouth every day losartan (COZAAR) 100 mg tablet take 1 tablet by mouth every day rosuvastatin (CRESTOR) 20 mg tablet Take 1 tablet by mouth daily at bedtime. furosemide (LASIX) 40 mg tablet Take 1 tablet by mouth every afternoon. potassium chloride ER (KLOR-CON M20) 20 mEq tablet TAKE 2 TABLETS BY MOUTH ONCE DAILY WITH FUROSEMIDE. acetaminophen (TYLENOL) 500 mg tablet Take 2 tablets by mouth every 6 hours as needed for pain. FAMILY HISTORY Problem Relation Age of Onset Cancer Mother pancreatic- at age 81 Diabetes Mother Hypertension Mother Thyroid Mother Cancer Father lung cancer- at age 72 Alcohol/Drug Brother drugs and alcohol Alcohol/Drug Sister drugs and alcohol Alcohol/Drug Sister drugs and alcohol Alcohol/Drug Sister drugs and alcohol Breast Cancer Maternal Aunt Social History Tobacco Use Smoking status: Former Current packs/day: 0.00 Average packs/day: 1 pack/day for 4.0 years (4.0 ttl pk-yrs) Types: Cigarettes Start date: 05/11/1969 Quit date: 05/11/1973 Years since quittin.1 Smokeless tobacco: Never Vaping Use Vaping status: Never Used Substance Use Topics Alcohol use: No Comment: no alcohol since 17years old, strong family history Drug use: No Comment: Former use Review of Systems Constitutional: Negative for appetite change, chills, fatigue, fever and unexpected weight change. HENT: Negative for congestion, ear pain, rhinorrhea and sore throat. Eyes: Negative for pain, discharge, itching and visual disturbance. Respiratory: Positive for shortness of breath (with warmer weather, humidity). Negative for cough and wheezing. Cardiovascular: Positive for leg swelling (at baseline). Negative for chest pain and palpitations. Gastrointestinal: Negative for abdominal pain, constipation, diarrhea, nausea and vomiting. Genitourinary: Negative for difficulty urinating. Musculoskeletal: Negative for arthralgias. Skin: Negative for rash. Neurological: Negative for dizziness, tremors, weakness and headaches. Psychiatric/Behavioral: Negative for dysphoric mood and sleep disturbance. The patient is not nervous/anxious. Objective BP 124/74 Pulse 89 Temp 98.5 Ht 6' 2 (1.88m) Wt 381 lb (172.8kg) SpO2 91% BMI 48.90 kg/(m^2). Physical Exam Constitutional: Appearance: Normal appearance. He is well-developed. He is not diaphoretic. HENT: Head: Normocephalic and atraumatic. Right Ear: Hearing, tympanic membrane, ear canal and external ear normal. Left Ear: Hearing, tympanic membrane, ear canal and external ear normal. Nose: Nose normal. Mouth/Throat: Lips: [place]. Mouth: Mucous membranes are moist. Pharynx: Oropharynx is clear. Eyes: General: Lids are normal. Conjunctiva/sclera: Conjunctivae normal. Pupils: Pupils are equal, round, and reactive to light. Neck: Vascular: Normal carotid pulses. No carotid bruit or JVD. Cardiovascular: Rate and Rhythm: Normal rate and regular rhythm. Pulses: Carotid pulses are 2+ on the right side and 2+ on the left side. Radial pulses are 2+ on the right side and 2+ on the left side. Dorsalis pedis pulses are 2+ on the right side and 2+ on the left side. Heart sounds: Normal heart sounds. No murmur heard. Pulmonary: Effort: Pulmonary effort is normal. Breath sounds: Normal breath sounds. No wheezing, rhonchi or rales. Abdominal: General: Bowel sounds are normal. Palpations: Abdomen is soft. Tenderness: There is no abdominal tenderness. Musculoskeletal: General: Normal range of motion. Cervical back: Normal range of motion and neck supple. Right lower le+ Edema present. Left lower le+ Edema present. Lymphadenopathy: Cervical: No cervical adenopathy. Skin: General: Skin is warm and dry. Findings: No rash. Neurological: General: No focal deficit present. Mental Status: He is alert and oriented to person, place, and time. Cranial Nerves: No cranial nerve deficit. Sensory: Sensation is intact. Motor: Motor function is intact. Coordination: Coordination is intact. Gait: Gait is intact. Psychiatric: Attention and Perception: Attention and perception normal. Mood and Affect: Mood and affect normal. Speech: Speech normal. Behavior: Behavior normal. Behavior is cooperative. Thought Content: Thought content normal. Judgment: Judgment normal. Latest Ref Rng 09/23/2023 12/31/2023 01/01/2024 01/20/2024 05/31/2024 Protein, Total 6.3 - 8.0 g/dL 7.3 Albumin 3.9 - 4.9 g/dL 4.2 Calcium 8.5 - 10.2 mg/dL 9.7 9.2 Bilirubin, Total 0.2 - 1.3 mg/dL 0.8 Alkaline Phosphatase 38 - 113 U/L 69 AST 14 - 40 U/L 20 ALT 10 - 54 U/L 26 Glucose 74 - 99 mg/dL 125 (H) 130 (H) BUN 9 - 24 mg/dL 24 29 (H) Creatinine 0.73 - 1.22 mg/dL 1.35 (H) 1.35 (H) Sodium 136 - 144 mmol/L 141 144 Potassium 3.7 - 5.1 mmol/L 4.0 4.5 Chloride 97 - 105 mmol/L 102 106 (H) CO2 22 - 30 mmol/L 27 27 Anion Gap 9 - 18 mmol/L 12 11 eGFR >=60 mL/min/1.73m 61 61 WBC 3.70 - 11.00 k/uL 7.66 RBC 4.20 - 6.00 m/uL 5.23 Hemoglobin 13.0 - 17.0 g/dL 15.5 Hematocrit 39.0 - 51.0 % 48.2 MCV 80.0 - 100.0 fL 92.2 MCH 26.0 - 34.0 pg 29.6 MCHC 30.5 - 36.0 g/dL 32.2 RDW-CV 11.5 - 15.0 % 13.2 Platelet Count 150 - 400 k/uL 221 MPV 9.0 - 12.7 fL 9.1 Absolute nRBC <0.01 k/uL <0.01 Cholesterol, Total <200 mg/dL 193 Triglyceride <150 mg/dL 145 HDL Cholesterol >39 mg/dL 37 (L) Non HDL Cholesterol <130 mg/dL 156 (H) Fasting Time hrs 12 VLDL Cholesterol <30 mg/dL 29 TC:HDL Ratio <5.10 5.22 (H) LDL Cholesterol <100 mg/dL 127 (H) LDL:HDL Ratio <2.54 3.43 (H) TSH 0.270 - 4.200 mIU/L 1.830 Vitamin B12 232 - 1,245 pg/mL 440 ASSESSMENT/PLAN: 1. Essential hypertension - ICD9: 401.9, ICD10: I10 (primary diagnosis) - Controlled - Continue current medications - Recommend home blood pressure monitoring, to bring results to next visit - Encouraged sodium restriction, DASH or Mediterranean diet - Recommend regular aerobic exercise - LOSARTAN 100 MG TABLET - METOPROLOL SUCCINATE ER 100 MG TABLET,EXTENDED RELEASE 24 HR - COMPREHENSIVE METABOLIC PANEL - COMPLETE BLOOD COUNT - LIPID PANEL BASIC 2. Encounter for screening examination for other mental health and behavioral disorders - ICD9: V79.8, ICD10: Z13.39 - ANXIETY SCREENING 3. Screening for depression - ICD9: V79.0, ICD10: Z13.31 - DEPRESSION SCREENING 4. Hyperglycemia - ICD9: 790.29, ICD10: R73.9 - HEMOGLOBIN A1C 5. Hyperlipidemia, mixed - ICD9: 272.2, ICD10: E78.2 - Controlled - Continue current medications - Counseled on healthy diet and regular exercise - COMPREHENSIVE METABOLIC PANEL - COMPLETE BLOOD COUNT - LIPID PANEL BASIC FU 6 months Marcio Vasquez APRN.BUSINESS SUPPORT ASSOCIATE documented in this encounter [facility] 06-24-2024 Telephone encounter Note pharmacy electronically requesting refills as follows: Last seen 03/23/24 . Last refill 12/28/23 . Requested Prescriptions Pending Prescriptions Disp Refills losartan (COZAAR) 100 mg tablet [Pharmacy Med Name: LOSARTAN POTASSIUM 100 MG TAB] 90 tablet 1 Sig: take 1 tablet by mouth every day Please review and advise. Augustus Cazares MA [facility] 06-24-2024 Miscellaneous Notes pharmacy electronically requesting refills as follows: Last seen 03/23/24 . Last refill 12/28/23 . Requested Prescriptions Pending Prescriptions Disp Refills losartan (COZAAR) 100 mg tablet [Pharmacy Med Name: LOSARTAN POTASSIUM 100 MG TAB] 90 tablet 1 Sig: take 1 tablet by mouth every day Please review and advise. Augustus Cazares MA documented in this encounter [facility] 06-07-2024 Note HNO ID: [id number] Author: ?, ?, ? Service: ? Author Type: ? Type: Progress Notes Filed: 06/07/2024 15:52 Note Text: Per readers; Shai Vela([id number]) - is invalid due to pulse ox failure. Lvm AND sent myc to redeploy. [facility] 06-07-2024 History of Present illness Narrative Per readers; Shai Vela([id number]) - is invalid due to pulse ox failure. Lvm & sent myc to [employer]. Sleep Study Check-In Documentation Date: June 07, 2024 Name: Norma Alexus Lucrecia Comments: HST was returned in working order without all sleep questionnaires patient will be called Rebekah Bloom PT spouse called back and stated they still hve not received kit. Per [employer] site, it is now out for delivery and should arrive today by 2pm. PT's spouse made aware and sent myc with this info with tracking. Expecting to take to [employer] Thursday Am Pt's spouse called and stated how the kit was not yet delivered. [employer] should deliver tomorrow. Explained the process to her and told her to still complete it and return it the next ay after tis been received from [employer]. Nom[facility] # [id number] , date shipped out 05-30-24 [employer] only Tracking mailout: [id number] Tracking return: [id number] May 24, 2024 Standing PSG Orders signed in the last 90 days None Future PSG Orders signed in the last 90 days Ordered Auth. provider HOME SLEEP APNEA TEST (HSAT) [[id number]] 05/13/24 Marcio Vasquez APRN.BUSINESS SUPPORT ASSOCIATE Assoc. diagnoses: PRERNA (obstructive sleep apnea) [G47.33] Q: Indications: A: Obstructive sleep apnea Q: STOP-BANG conditions - Select All That Apply: A: GENDER = male A2: BMI > 35 kg/m2 A3: AGE > 50 A4: high blood PRESSURE Q: Current use of supplemental oxygen during sleep period?: A: No All Prior Sleep Studies (past 365 days) 05/13/2024 09:02 Sleep Studies HOME SLEEP APNEA TEST (HSAT) HOME SLEEP APNEA TEST (HSAT) Order Status: Ordered, Future Expires: 05/13/25 BMI Readings from Last 2 Encounters: 03/23/24 : 48.40 kg/m 01/28/24 : 48.28 kg/m PAST MEDICAL HISTORY Diagnosis Date Arthritis Back pain Chronic congestive heart failure (HCC) 10/23/2023 GERD (gastroesophageal reflux disease) occasional History of transfusion Hypertension Obesity Obstructive sleep apnea 10/26/2012 Severe;Pt unable to tolerate wearing machine Pulmonary embolism, bilateral (HCC) 06/16/2022 Renal calculus 10/26/2010 Seasonal allergies Stage 3a chronic kidney disease (HCC) Stasis edema with recurrent cellulitis The medical record was reviewed to determine if the proposed sleep study conforms to the [facility] Practice Parameters for the Indications for Polysomnography and Related Procedures, or if the sleep study is indicated for other reasons. Indications for study: PRERNA suspected with comorbid medical or sleep disorders: Morbid obesity (BMI>40 kg/m2) Sleep study to be performed: Home Sleep Apnea Test (HSAT) Special instructions: None-follow laboratory protocol [facility] Staff Note: I have read the above protocol, edited as needed, and agree to the plan. Fran Dietrich III, PhD 4:23 PM, 05/25/2024 May 24, 2024 An order has been received for Home Sleep Apnea Test (HSAT) from Marcio Bryant APRN.CNP, a B. [facility] Staff. Visit prep complete. Comments :No The sleep study is scheduled for 06/01. Insurance: Payor: [facility] MEDICAID / Plan: [facility] MEDICAID / Product Type: Medicaid / Payer/Plan Subscr Sex Relation Sub. Ins. ID Effective Group Num 1. [facility]* NORMA SINGER 1965 Male Self [id number] 11/26/22 [facility] [address] Tracy Humphries documented in this encounter [facility] 06-07-2024 Note HNO ID: [id number] Author: ?, ?, ? Service: ? Author Type: ? Type: Progress Notes Filed: 06/07/2024 10:34 Note Text: Sleep Study Check-In Documentation Date: June 07, 2024 Name: Norma Singer Comments: HST was returned in working order without all sleep questionnaires patient will be called Rebekah Bloom [facility] 06-03-2024 Telephone encounter Note ----- Message from Marcio Vasquez APRN.BUSINESS SUPPORT ASSOCIATE sent at 06/02/2024 7:26 PM EDT ----- Please notify patient results are normal. Thank you. Marcio Vasquez APRN.BUSINESS SUPPORT ASSOCIATE [facility] 06-03-2024 Miscellaneous Notes ----- Message from Marcio Vasquez APRN.BUSINESS SUPPORT ASSOCIATE sent at 06/02/2024 7:26 PM EDT ----- Please notify patient results are normal. Thank you. Marcio Vasquez APRN.BUSINESS SUPPORT ASSOCIATE documented in this encounter [facility] 06-02-2024 Note HNO ID: [id number] Author: ?, ?, ? Service: ? Author Type: ? Type: Progress Notes Filed: 06/07/2024 10:33 Note Text: PT spouse called back and stated they still hve not received kit. Per fed[employer] site, it is now out for delivery and should arrive today by 2pm. PT's spouse made aware and sent myc with this info with tracking. Expecting to take to [employer] Thursday Am [facility] 05-31-2024 Note HNO ID: [id number] Author: ?, ?, ? Service: ? Author Type: ? Type: Progress Notes Filed: 06/07/2024 10:33 Note Text: Pt's spouse called and stated how the kit was not yet delivered. [employer] should deliver tomorrow. Explained the process to her and told her to still complete it and return it the next ay after tis been received from [employer]. [facility] 05-30-2024 Note HNO ID: [id number] Author: ?, ?, ? Service: ? Author Type: ? Type: Progress Notes Filed: 06/07/2024 10:33 Note Text: Nomad # [id number] , date shipped out 05-30-24 [employer] only Tracking mailout: [id number] Tracking return: [id number] [facility] 05-24-2024 Instructions Filipe Madsen MD - 05/24/2024 1:19 PM EDT SKIN CARE AFTER CRYOSURGERY The skin's response to cryosurgery (freezing) can be mild to severe, depending on the depth of the freeze and location of the area treated. You may have minimal redness and swelling with little discomfort or significant discoloration and blistering with considerable discomfort. A burning sensation in the skin may last from several minutes to several hours after the procedure. Follow these instructions when caring for an area treated by cryosurgery: 1. Please clean the area every day with gentle soap and water. It is not necessary to cover the site with a bandage. However, it may be used for protection and it must be changed daily. Do not leave a soiled or wet bandage on the wound. 2. If you are experiencing discomfort you may use a cool compress, elevate the area or take over the counter pain relievers. 3. Apply Vaseline or Aquaphor daily to the site.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 obese... 12/31 Hospital Medicine ...Morbidly Obese...past medical history of...morbid obesity... 01/01 D/C Summary ...past medical history of...morbid obesity...Obese... Treatment Diet Heart Healthy Diagnostic Issues due to body habitus: 10/21/23 Echo ...Technically difficult exam due to body habitus... Please specify a corresponding diagnosis for the Above Clinical Indicators as appropriate: x Morbid Obesity Other, please specify [facility] 01-02-2024 Note HNO ID: [id number] Author: CARL SHAH LSW Service: Care Management Author Type: Molder Wax Ball Type: Care Mgt Progress Note Filed: 01/02/2024 14:24 Note Text: CARE MANAGEMENT DISCHARGE NOTE SERVICE DATE: January 02, 2024 SERVICE TIME: 2:22 PM Admission Date: 12/31/2023 LOS: 2 days Discharge Arrangement Discharge Arrangement: Home with Self Care Services Arranged None Caregiver Assessment Caregiver is ready, willing and able to meet the patient's needs as recommended by the inter-professional team: No Caregiver needed Transportation Arrangements Transportation Arrangements: Car Date of Trip: 01/02/24 Destination: Home Handoff Communication: Handoff to: Primary Care Physician Primary Care Physician Name/Phone: Marcio Vasquez APRN.BUSINESS SUPPORT ASSOCIATE/[phone] Discharge order placed. Patient is discharging home with self care. CMSW called and confirmed that the patient's medications can be picked up at his pharmacy after discharge and are at no cost to the patient, however, his insurance will not cover the cost of a BP cuff. CMSW advised the medical team. Patient is aware and agreeable to discharge plan. Patient's spouse to transport at discharge. Rounded with RN. No additional CM needs. Discharge Time Out Yes Bedside RN present No Does pt have transport home? Yes Did pt use bedside pharmacy? No SIGNATURE: TOYA Blackwood PATIENT NAME: Norma Singer DATE: January 02, 2024 TIME: 2:22 PM CONTACT #: [phone] [facility] 01-02-2024 Note HNO ID: [id number] Author: NOTE, INTERFACE, ? Service: ? Author Type: ? Type: Progress Notes Filed: 01/02/2024 03:38 Note Text: Epic Scheduled Downtime: 01/02/2024 1:00:00 AM to 01/02/2024 3:24:00 AM [facility] 01-01-2024 Note HNO ID: [id number] Author: KAYLAN CRAWFORD MD Service: Hospital Medicine Author Type: Physician Type: Progress Notes Filed: 01/01/2024 16:03 Note Text: DEPARTMENT OF HOSPITAL MEDICINE PROGRESS NOTE SERVICE DATE: 01/01/2024 SERVICE TIME: 3:55 PM Hospital Medicine/Primary Attending: Kaylan Crawford MD NIGHT AND WEEKEND COVERAGE: ENCAMPMENT COVERAGE: Days: [phone], please page attending physician. Nights: [phone], please page [place] [facility] Night coverage pager [phone]. Subjective INTERVAL HPI: - describes the pain as more left flank pain which is positional relieved with tylenol - bp continues to run high - counseled on taking lasix, eliquis BID on daily basis - daughter who is RN at bedside says patient does not take medications as prescribed and is often non complaint, Current Facility-Administered Medications Medication Dose Route Frequency losartan 100 mg tab(s) (COZAAR) 100 mg ORAL DAILY metoprolol succinate ER 100 mg tab(s) (TOPROL XL) 100 mg ORAL DAILY apixaban 5 mg tab(s) (ELIQUIS) 5 mg ORAL BID NaCl 0.9% iv flush bag 20 mL INTRAVENOUS PRN acetaminophen 650 mg tab(s) (TYLENOL) 650 mg ORAL q 6 H PRN furosemide 20 mg tab(s) (LASIX) 20 mg ORAL DAILY rosuvastatin 20 mg tab(s) (CRESTOR) 20 mg ORAL AT BEDTIME lidocaine 4 % 1 Patch (SALONPAS) 1 Patch TRANSDERMAL DAILY And lidocaine patch - REMOVE OTHER AT BEDTIME And lidocaine - VERIFY PATCH OTHER q 8 H methocarbamol 500 mg tab(s) (ROBAXIN) 500 mg ORAL BID PRN amLODIPine 5 mg tab(s) (NORVASC) 5 mg ORAL DAILY Objective PHYSICAL EXAM: BP 176/85 Pulse 68 Temp (Src) 97.3 (Oral) Resp 16 Ht 6' 2 (1.88m) Wt 376 lb 5.2 oz (170.7kg) SpO2 93% BMI 48.30 kg/(m2). O2 Therapy: Room Air Physical Exam Performed GENERAL: Alert, no distress, cooperative, Morbidly Obese LUNGS: Lungs clear to auscultation, Good diaphragmatic excursion CARDIAC: Normal S1 and S2; no rubs, murmurs, or gallops ABDOMEN: Abdomen soft, non-tender, BS normal, No masses or organomegaly EXTREMITIES: Extremities normal, no deformities, edema, clubbing or skin discoloration. Good capillary refill., No ulcers NEURO: Grossly normal cognition, motor function, and cranial nerves III-XII Lines, Drains, and Airways Line Duration Peripheral 12/31/23 [facility] Right Forearm 18 Gauge 1 day Reviewed lines and needs to be continued: REASONS: Telemetry DATA: Diagnostic tests reviewed for today's visit: Most recent labs Most recent imaging Assessment/Plan Problem List Chest pain, pleuritic (POA: Yes) Hypertension (POA: Yes) Stasis edema (POA: Yes) PRERNA (obstructive sleep apnea) (POA: Yes) GERD (gastroesophageal reflux disease) (POA: Yes) Lymphedema (POA: Yes) Elevated serum creatinine (POA: Yes) Hyperlipidemia, mixed (POA: Yes) Bilateral leg edema (POA: Yes) Stage 3a chronic kidney disease (HCC) (POA: Yes) Right leg DVT (HCC) (POA: Yes) Chronic venous insufficiency (POA: Yes) History of pulmonary embolism (POA: Yes) Chronic congestive heart failure (HCC) (POA: Yes) Hypoxia (POA: Yes) HOSPITAL COURSE: Norma Singer is a 58 year old male presented with past medical history of CHF, HTN, CKD, hx PE/DVT (on Eliquis), PRERNA (no use of CPAP), morbid obesity, renal calculi, and lymphedema presented with left sided chest pain/ flank pain [facility] course: Afebrile, hypertensive with BP 190/96, HR 85, tachypneic with RR 22 with SpO2 94%. CBC with differential unremarkable. CMP with glucose 125, SCr 1.35. NT proBNP 356. High-sensitivity troponins 19 > 17 > 17. UA unremarkable. EKG read as sinus rhythm with first-degree AV block; minimal voltage criteria for LVH; T wave abnormality, consider lateral ischemia; QTc 437. CT PE with questionable filling defects in segmental and subsegmental left lower lobe pulmonary artery branches which could reflect an age-indeterminate embolism, suboptimally evaluated due to breathing motion artifact; no other evidence of PE; no significant lung abnormality. Bilateral DVT ultrasound negative for proximal or calf DVT bilaterally; negative for superficial thrombophlebitis. Patient given hydralazine x 2 and Tylenol. Patient transferred to [facility] for admission under the hospital medicine service for workup and management of pleuritic chest pain Chest pain, pleuritic/flank pain Hypoxia History of pulmonary embolism History of right leg DVT - High-sensitivity troponins 19 > 17 > 17 - EKG read as sinus rhythm with first-degree AV block; minimal voltage criteria for LVH; T wave abnormality, consider lateral ischemia; QTc 437 - CT PE with questionable filling defects in segmental and subsegmental left lower lobe pulmonary artery branches which could reflect an age-indeterminate embolism, suboptimally evaluated due to breathing motion artifact; no other evidence of PE; no significant lung abnormality - Bilateral DVT ultrasound negative for proximal or caesar (more content not included)... [facility] 12-28-2023 Miscellaneous Notes phar requesting refills: Last office visit 10/28/2023. Last refill 06/26/2023.nov none Requested Prescriptions Pending Prescriptions Disp Refills losartan (COZAAR) 100 mg tablet [Pharmacy Med Name: LOSARTAN POTASSIUM 100 MG TAB] 90 tablet 1 Sig: take 1 tablet by mouth every day Please review and advise. Aure Trinh MA documented in this encounter [facility] 12-28-2023 Miscellaneous Notes Patient is informed Patricia Masterson MA Thank you. Please see orders. Marcio Vasquez APRN.CNP ----- Message from Aure Trinh MA sent at 09/28/2023 10:37 AM EST ----- Remind pt. Time to recheck kidney function. Aure Trinh MA documented in this encounter [facility] 09-28-2023 Miscellaneous Notes Patient notified and voiced understanding. Aure Trinh MA Reminder placed. Aure Trinh MA Chest x-ray was normal Cholesterol levels were elevated, LDL was 127, goal is less than 100. He stopped taking his cholesterol pill. I recommend he keep taking it - I am prescribing a new one - Crestor 20 mg at bedtime. Kidney function is mildly elevated- I would like to recheck this in 3 months, please add reminder Blood sugar was in prediabetes range CBC was normal BNP was elevated but not high enough to conclude he has heart failure, await ECHO results Marcio Vasquez APRN.ALICIA documented in this encounter [facility] 09-23-2023 History of Present illness Narrative Radiology Service Progress Note PATIENT NAME: Norma Singer DATE OF SERVICE: September 23, 2023 TIME: 6:41 PM PATIENT IDENTITY VERIFICATION COMPLETED USING TWO (2) IDENTIFIERS: Name and Date of confirmed by patient verbally. FALL SCREENING: Has the patient had 2 falls in the last year or 1 fall with injury or currently using an Ambulatory Assistive Device (Walker, Cane, Wheelchair, Crutches, etc.)? No PATIENT GENDER DATA: Male PATIENT RELEVANT IMPLANT DATA REVIEWED: Not Applicable RADIOLOGY DEPARTMENT: General X-ray: Exam(s) Completed: Chest X-Ray PERIPHERAL IV DATA: Not applicable SIGNED BY: SHADIA Morrow September 23, 2023 6:41 PM documented in this encounter [facility] 09-23-2023 History of Present illness Narrative This note was created using [employer]. Subjective Norma Singer is a 58 year old male here today for hypertension follow-up visit. I reviewed past medical, surgical, social, and family histories today and updated chart. Allergies, chronic medications, and supplements were also reviewed. Left eye - feels like something is stuck in there Used some eye drops Feels like eye lash No injury Some watering Feeling tired Hx pulmonary embolism Pulmonary told him he could take Eliquis rest of his life He is still taking the Eliquis every day Exercise - Slowing down, very difficult to walk Gets winded after 100 yards Fatigue Aching in both legs Knees feel fine Maybe lower back pain - some sciatica No numbness or tingling in the legs Pain left lower lateral rib - still there Whistling at night Mucus comes up at night Cough is just at night when he lays down Cant sleep laying down Augmentin given at beginning of the month, felt a little better after 3-4 days of the antibiotic No sore throat Tobacco use - none Alcohol use - none Gallbadder - feeling fine, never followed up with general surgery, feels he doesn't need to pursue gallbladder removal Stopped pravastatin - too many pills PAST MEDICAL HISTORY Diagnosis Date Arthritis Back pain GERD (gastroesophageal reflux disease) occasional History of transfusion Hypertension Obesity Obstructive sleep apnea 10/26/2012 Severe;Pt unable to tolerate wearing machine Renal calculus 10/26/2010 Seasonal allergies Stage 3a chronic kidney disease (HCC) Stasis edema with recurrent cellulitis PAST SURGICAL HISTORY Procedure Laterality Date PROCEDURE 05/25/2022 I&D back of left leg ALLERGIES Cat Dander and Hay Fever [Seasonal Allergies] MEDICATIONS metoprolol succinate ER (TOPROL XL) 100 mg take 1 tablet by mouth every day losartan (COZAAR) 100 mg tablet TAKE 1 TABLET BY MOUTH EVERY DAY ELIQUIS 5 mg tab(s) TAKE 1 TABLET BY MOUTH TWICE A DAY bacitracin 500 unit/gram ointment Apply to affected area once daily. Right 2nd toe acetaminophen (TYLENOL) 500 mg tablet Take 2 tablets by mouth every 6 hours as needed for pain. furosemide (LASIX) 40 mg tablet take 1 tablet by mouth every day (Patient not taking: Reported on 09/23/2023) KLOR-CON M20 20 mEq tablet TAKE 2 TABLETS BY MOUTH ONCE DAILY WITH FUROSEMIDE. (Patient not taking: Reported on 09/23/2023) iv contrast (will be provided with radiology test) CT Chest PE -Inject, intravenously, once for 1 dose.No IV access, insert saline lock prior to the beginning of sedation, infusion, injection of imaging exam. Discontinue saline lock post exam. If Pt. has a central line or IVAD, may access for administration according to line specific nursing protocol. Once exam is complete flush line and de-access according to line specific nursing protocol in the CT contrast administration guidelines link. loratadine (CLARITIN) 10 mg tablet Take 10 mg by mouth once daily. (Patient not taking: Reported on 09/23/2023) pravastatin (PRAVACHOL) 20 mg tablet Take 1 tablet by mouth once daily. FAMILY HISTORY Problem Relation Age of Onset Cancer Mother pancreatic- at age 81 Diabetes Mother Hypertension Mother Thyroid Mother Cancer Father lung cancer- at age 72 Alcohol/Drug Brother drugs and alcohol Alcohol/Drug Sister drugs and alcohol Alcohol/Drug Sister drugs and alcohol Alcohol/Drug Sister drugs and alcohol Breast Cancer Maternal Aunt Social History Tobacco Use Smoking status: Former Packs/day: 1.00 Years: 4.00 Additional pack years: 0.00 Total pack years: 4.00 Types: Cigarettes Quit date: 05/11/1973 Years since quittin.4 Smokeless tobacco: Never Vaping Use Vaping Use: Never used Substance Use Topics Alcohol use: No Comment: no alcohol since 17years old, strong family history Drug use: No Comment: Former use Review of Systems Constitutional: Negative for appetite change, chills, fatigue, fever and unexpected weight change. HENT: Negative for congestion, ear pain, rhinorrhea and sore throat. Eyes: Positive for discharge. Negative for pain, itching and visual disturbance. Respiratory: Positive for cough, shortness of breath and wheezing. Cardiovascular: Positive for leg swelling. Negative for chest pain (left lower lateral rib pain) and palpitations. Gastrointestinal: Negative for abdominal pain, constipation, diarrhea, nausea and vomiting. Genitourinary: Negative for difficulty urinating. Musculoskeletal: Negative for arthralgias. Skin: Negative for rash. Neurological: Negative for dizziness, tremors, weakness and headaches. Psychiatric/Behavioral: Negative for dysphoric mood and sleep disturbance. The patient is not nervous/anxious. Objective BP 146/80 Pulse 71 Temp 36.3 C (97.4 F) Ht 188 cm (6' 2) Wt (!) 176.4 kg (389 lb) SpO2 96% BMI 49.94 kg/m 146 106 Physical Exam Constitutional: Appearance: Normal appearance. He is well-developed. He is obese. He is not diaphoretic. HENT: Head: Normocephalic and atraumatic. Right Ear: Hearing, tympanic membrane, ear canal and external ear normal. Left Ear: Hearing, tympanic membrane, ear canal and external ear normal. Nose: Nose normal. Mouth/Throat: Lips: [place]. Mouth: Mucous membranes are moist. Pharynx: Oropharynx is clear. Eyes: General: Lids are normal. Conjunctiva/sclera: Conjunctivae normal. Pupils: Pupils are equal, round, and reactive to light. Neck: Vascular: Normal carotid pulses. No carotid bruit or JVD. Cardiovascular: Rate and Rhythm: Normal rate and regular rhythm. Pulses: Carotid pulses are 2+ on the right side and 2+ on the left side. Radial pulses are 2+ on the right side and 2+ on the left side. Heart sounds: Normal heart sounds. No murmur heard. Pulmonary: Effort: Pulmonary effort is normal. Breath sounds: Examination of the right-lower field reveals rales. Examination of the left-lower field reveals rales. Rales present. No wheezing or rhonchi. Abdominal: General: Bowel sounds are normal. Palpations: Abdomen is soft. Tenderness: There is no abdominal tenderness. Musculoskeletal: Cervical back: Normal range of motion and neck supple. Right lower le+ Edema present. Left lower le+ Edema present. Lymphadenopathy: Cervical: No cervical adenopathy. Skin: General: Skin is warm and dry. Findings: No rash. Neurological: General: No focal deficit present. Mental Status: He is alert and oriented to person, place, and time. Cranial Nerves: No cranial nerve deficit. Sensory: Sensation is intact. Motor: Motor function is intact. Coordination: Coordination is intact. Gait: Gait is intact. Psychiatric: Attention and Perception: Attention and perception normal. Mood and Affect: Mood and affect normal. Speech: Speech normal. Behavior: Behavior normal. Behavior is cooperative. Thought Content: Thought content normal. Judgment: Judgment normal. Component Latest Ref Rng & Units 07/28/2022 09/08/2022 Protein, Total 6.3 - 8.0 g/dL 6.7 Albumin 3.9 - 4.9 g/dL 3.8 (L) Calcium 8.5 - 10.2 mg/dL 8.9 Bilirubin, Total 0.2 - 1.3 mg/dL 0.8 Alkaline Phosphatase 38 - 113 U/L 103 AST 14 - 40 U/L 27 ALT 10 - 54 U/L 36 Glucose 74 - 99 mg/dL 90 BUN 9 - 24 mg/dL 15 Creatinine 0.73 - 1.22 mg/dL 1.20 Sodium 136 - 144 mmol/L 140 Potassium 3.7 - 5.1 mmol/L 4.2 Chloride 97 - 105 mmol/L 106 (H) CO2 22 - 30 mmol/L 27 Anion Gap 9 - 18 mmol/L 7 (L) eGFR >=60 mL/min/1.73m 71 WBC 3.70 - 11.00 k/uL 6.41 RBC 4.20 - 6.00 m/uL 4.77 Hemoglobin 13.0 - 17.0 g/dL 13.8 Hematocrit 39.0 - 51.0 % 43.3 MCV 80.0 - 100.0 fL 90.8 MCH 26.0 - 34.0 pg 28.9 MCHC 30.5 - 36.0 g/dL 31.9 RDW-CV 11.5 - 15.0 % 14.4 Platelet Count 150 - 400 k/uL 219 MPV 9.0 - 12.7 fL 9.3 Cholesterol, Total <200 mg/dL 185 Triglyceride <150 mg/dL 186 (H) HDL Cholesterol >39 mg/dL 38 (L) Non HDL Cholesterol <130 mg/dL 147 (H) Fasting Time hrs 12 VLDL Cholesterol <30 mg/dL 37 (H) TC:HDL Ratio <5.10 4.87 LDL Cholesterol <100 mg/dL 110 (H) LDL:HDL Ratio <2.54 2.89 (H) ECHO 06/17/22 CONCLUSIONS: - Technically difficult exam due to body habitus. - Exam indication: Cardiovascular source of embolus - The left ventricle is small. There is mild left ventricular hypertrophy. Left ventricular systolic function is normal. EF = 69 5% (2D biplane) Definity contrast used for endocardial border detection. Normal left ventricular diastolic function. - The right ventricle is not well visualized. On limited views, the right ventricle appears grossly normal in size and systolic function. - There are no gross valvular abnormalities noted on limited quality study. - The visualized aorta is borderline dilated with a maximal dimension of 3.8 cm. - The patient has not had a prior CC echocardiographic exam for comparison. ASSESSMENT/PLAN: 1. Primary hypertension - ICD9: 401.9, ICD10: I10 (primary diagnosis) - Uncontrolled - Continue current medications - Toprol 100 mg daily, losartan 100 mg daily - Recommend home blood pressure monitoring, to bring results to next visit - Encouraged sodium restriction, DASH or Mediterranean diet - Recommend regular aerobic exercise - Follow up in 4 weeks for hypertension visit - CBC - COMP METABOLIC PANEL - LIPID PANEL BASIC 2. Hyperlipidemia, mixed - ICD9: 272.2, ICD10: E78.2 Patient stopped taking his statin - Control undetermined, due for labs - Counseled on healthy diet and regular exercise - CBC - COMP METABOLIC PANEL - LIPID PANEL BASIC 3. PRERNA (obstructive sleep apnea) - ICD9: 327.23, ICD10: G47.33 Last sleep study on file done in 2012 = AHI 12.5 Ordered autoCPAP with sleep medicine at that time but he never wore it He defers retesting because he will not wear CPAP 4. Dyspnea, unspecified type - ICD9: 786.09, ICD10: R06.00 CXR, BNP, ECHO Continue lasix - ECHO - NT PRO BNP 5. Pleural effusion on left - ICD9: 511.9, ICD10: J90 Continue lasix CXR - FUROSEMIDE 40 MG TABLET - POTASSIUM CHLORIDE ER 20 MEQ TABLET,EXTENDED RELEASE(PART/CRYST) - XR CHEST 2V FRONTAL/LAT 6. Acute cough - ICD9: 786.2, ICD10: R05.1 - XR CHEST 2V FRONTAL/LAT 7. Lung crackles - ICD9: 786.7, ICD10: R09.89 - FUROSEMIDE 40 MG TABLET - XR CHEST 2V FRONTAL/LAT - ECHO 8. Generalized weakness - ICD9: 780.79, ICD10: R53.1 Labs, ECHO 9. Fatigue, unspecified type - ICD9: 780.79, ICD10: R53.83 Labs, ECHO 10. History of pulmonary embolism - ICD9: V12.55, ICD10: Z86.711 Bilateral, life threatening, provoked Repeat CTA was negative for PE in 2021 He still has risk factors of obesity, sedentary lifestyle Will continue Eliquis 5 mg BID Marcio Vasquez APRN.BUSINESS SUPPORT ASSOCIATE documented in this encounter [facility] 08-28-2023 Instructions Madison Austin APRN.ALICIA - 08/28/2023 1:43 PM EDT - Symptomatic management with rest, fluids, and analgesia as needed. - Cool mist humidifier at night. - Follow-up with PCP in 3-5 days if symptoms persist or worsen. - Go to the emergency department for fever greater than 102, neck stiffness, severe headache, drooling, signs of dehydration, chest pain, if you cough up blood, feel like you are going to pass out, or have difficulty breathing. documented in this encounter [facility] 08-28-2023 History of Present illness Narrative CHIEF COMPLAINT: Norma Singer is a 57 year old male who presents for multiple URI symptoms including cough, wheezing, SOB, headache, jaw pain, nasal congestion, fatigue, and sore throat. He has been taking Mucinex and Tylenol. He did complete a Covid test and it was negative. I reviewed past medical, surgical, social, and family histories today and updated chart. Allergies, chronic medications, and supplements were also reviewed. Grandson had strep and he was with him over the weekend The history is provided by the patient. No foreign languages department chair was used. Cough This is a new problem. The current episode started more than 2 days ago. The problem occurs constantly. The problem has not changed since onset.There has been no fever. Associated symptoms include ear congestion, headaches, sore throat, shortness of breath and wheezing. Pertinent negatives include no chest pain, no chills, no sweats, no weight loss, no ear pain, no rhinorrhea, no myalgias and no eye redness. He is not a smoker. His past medical history is significant for pneumonia. His past medical history does not include COPD, emphysema or asthma. PAST MEDICAL HISTORY Diagnosis Date Arthritis Back pain GERD (gastroesophageal reflux disease) occasional History of transfusion Hypertension Obesity Obstructive sleep apnea 10/26/2012 Severe;Pt unable to tolerate wearing machine Renal calculus 10/26/2010 Seasonal allergies Stage 3a chronic kidney disease (HCC) Stasis edema with recurrent cellulitis PAST SURGICAL HISTORY Procedure Laterality Date PROCEDURE 05/25/2022 I&D back of left leg Social History Tobacco Use Smoking status: Former Packs/day: 1.00 Years: 4.00 Additional pack years: 0.00 Total pack years: 4.00 Types: Cigarettes Quit date: 05/11/1973 Years since quittin.3 Smokeless tobacco: Never Vaping Use Vaping Use: Never used Substance Use Topics Alcohol use: No Comment: no alcohol since 17years old, strong family history Drug use: No Comment: Former use ALLERGIES Allergen Reactions Cat Dander Intolerance Hay Fever [Seasonal* Unknown Family History Problem Relation Age of Onset Cancer Mother pancreatic- at age 81 Diabetes Mother Hypertension Mother Thyroid Mother Cancer Father lung cancer- at age 72 Alcohol/Drug Brother drugs and alcohol Alcohol/Drug Sister drugs and alcohol Alcohol/Drug Sister drugs and alcohol Alcohol/Drug Sister drugs and alcohol Breast Cancer Maternal Aunt Current Outpatient Medications Medication Sig Dispense Refill furosemide (LASIX) 40 mg tablet take 1 tablet by mouth every day 90 tablet 0 KLOR-CON M20 20 mEq tablet TAKE 2 TABLETS BY MOUTH ONCE DAILY WITH FUROSEMIDE. 180 tablet 0 metoprolol succinate ER (TOPROL XL) 100 mg take 1 tablet by mouth every day 90 tablet 1 losartan (COZAAR) 100 mg tablet TAKE 1 TABLET BY MOUTH EVERY DAY 90 tablet 1 ELIQUIS 5 mg tab(s) TAKE 1 TABLET BY MOUTH TWICE A DAY 60 tablet 2 iv contrast (will be provided with radiology test) CT Chest PE -Inject, intravenously, once for 1 dose.No IV access, insert saline lock prior to the beginning of sedation, infusion, injection of imaging exam. Discontinue saline lock post exam. If Pt. has a central line or IVAD, may access for administration according to line specific nursing protocol. Once exam is complete flush line and de-access according to line specific nursing protocol in the CT contrast administration guidelines link. 1 Each 0 loratadine (CLARITIN) 10 mg tablet Take 10 mg by mouth once daily. pravastatin (PRAVACHOL) 20 mg tablet Take 1 tablet by mouth once daily. 30 tablet 11 bacitracin 500 unit/gram ointment Apply to affected area once daily. Right 2nd toe 28.4 g 0 acetaminophen (TYLENOL) 500 mg tablet Take 2 tablets by mouth every 6 hours as needed for pain. No current facility-administered medications for this visit. Review of Systems Constitutional: Positive for fatigue. Negative for appetite change, chills, diaphoresis, fever and weight loss. HENT: Positive for congestion, sinus pressure, sinus pain and sore throat. Negative for ear pain and rhinorrhea. Eyes: Negative for redness. Respiratory: Positive for cough, chest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 intervention 1 goal intervention scheduled/documente d in this visit SN Integumentary/W ounds Disciplines: SN 06/11/2022 Active 1 goal linked to scheduled/document ed intervention 2 goal interventions scheduled/documente d in this visit Goals Goal Associated Problem Outcome Goal Met? Visit Notes Patient/caregiver will demonstrate ability to obtain, store, identify and administer ordered medications, keep accurate medication list in home, and adhere to medication schedule Description: Patient/caregiver will demonstrate ability to obtain, store, identify and administer ordered medications, keep accurate medication list in home, and adhere to medication schedule by 08/09/22. Medication Education No Patient has declined referred services Declined Referral No Patient to maintain parameters within physician-specified ranges throughout certification period Physician Specific Parameters No Manage Risk for falls Description: Patient/caregiver will verbalize knowledge of individualized fall prevention strategies by 08/09/22. Risk for Falls No Manage Pain Description: Patient/caregiver will verbalize knowledge and understanding of appropriate techniques to control pain, including pain medication and non-pharmacological techniques. Patient will verbalize or demonstrate an acceptable level of pain as evidenced by a pain score of 0-4/10 and improvement in ability to perform activities of daily living to be achieved by through end of cert. Pain No Manage Nutrition/Hydration Description: Patient/caregiver will verbalize/demonstrate knowledge of prescribed diet and/or healthy nutrition to be achieved by 08/09/22. Nutrition/Hydration No Manage discharge planning Description: Patient/caregiver will verbalize understanding of ongoing discharge plan provided related to disease management, arrangements for outpatient and/or community services, obtaining medications, supplies, and DME, as needed throughout certification period. Discharge No Patient/Caregiver will have improved healing and be free of signs and symptoms of complications Description: Patient/caregiver will verbalize management strategies to promote wound healing & prevent complications as evidenced by improved healing & no complications by 08/09/22. SN Integumentary/Wounds No Interventions Intervention Associated Problem/Goal Status Variance Visit Notes Medication Education Description: Evaluate/instruct patient/caregiver on obtaining, storing, identifying and administering ordered medications as well as keeping accurate medication list in the home and adhereing to medication schedule Problem:Medication Education Goal:Patient/caregive r will demonstrate ability to obtain, store, identify and administer ordered medications, keep accurate medication list in home, and adhere to medication schedule Completed Patient instructed on importance of keeping accurate medication list in home, adhering to medication schedule, proper storage of medications, Medication, route, dose, frequency, purpose, and side effects of all medications and disposing of old and out of date medications. Patient/caregiver declined OT services Problem:Declined Referral Goal:Patient has declined referred services Completed SPO2 Description: Notify Marcio Vasquez [employer] if pulse ox is <92% at rest. Problem:Physician Specific Parameters Goal:Patient to maintain parameters within physician-specified ranges throughout certification period Completed Instruct on individual fall risk factors and strategies to prevent falls and injuries caused by falls. Problem:Risk for Falls Goal:Manage Risk for falls Completed SN: Patient instructed on Eliminating Environmental Hazards: Keep pathways clear, Remove unsafe rugs, Move furniture from pathways, Keep rooms and walkways well lit, Install hand rails/grab bars, Wear supportive shoes or non-skid socks and Keep frequently used items within reach Instruct on pain and instruct on strategies to control pain Problem:Pain Goal:Manage Pain Completed patient instructed on techniques to control pain including Pharmacological measures. Define patient s appetite/hydration status and implement strategies to improve compliance with prescribed diet and/or healthy nutrition. Problem:Nutrition/Hyd ration Goal:Manage Nutrition/Hydration Completed reinforced patient on implementing strategies to comply with healthy nutrition and adequate hydration Instruct on ongoing discharge plan Problem:Discharge Goal:Manage discharge planning Completed Ongoing Discharge plan: Discharge plan discussed with patient including frequency and duration for home SN and plan for transition to: live independently at home without ongoing services. Wound VAC: Instruct on maintenance of Negative Pressure Wound Therapy Machine Problem:SN Integumentary/Wounds Goal:Patient/Caregive r will have improved healing and be free of signs and symptoms of complications Completed patient and caregiver instructed on the following: how to turn the machine on and off, how to charge the battery, how to change the canister, proper storage and cleaning of supplies and disposal of soiled dressings. Wound Vac: Perform Negative Pressure Wound Therapy Description: Location: L leg Frequency: 3 times a week and PRN Order: Cleanse nena-wound and wound with normal saline Skin prep to nena-wound as needed. Apply adaptive gauze/contact layer to wound bed as clinically indicated. Use calcium alginate and or foam adhesive dressing to protect open areas to periwound. Pack wound with black foam. Cover foam with transparent film drape and attach trac pad to film. Negative pressure to be set at pressure: 125 mmHg Continuous. Instruct on wet to dry dressing change for wound vac malfunction and to call [facility] to report. Measure wounds each dressing change. Problem:SN Integumentary/Wounds Goal:Patient/Caregive r will have improved healing and be free of signs and symptoms of complications Completed Completed. Patient did tolerate well. Patient and Caregiver instructed on and verbalized independence in removing wound vac in case of malfunction, applying wet to dry dressing, and calling [facility] Triage department to report wound vac off. Verified wet to dry dressing supplies in home. [facility] Visit Details Visit Type -SN SOC Discipline -Group Home Problems Problem Description Start Date Status Goals Interve ntions Physician Specific Parameters Disciplines: Skilled Services 06/11/2022 Active 1 goal linked to scheduled/documen carol intervention 1 goal intervention scheduled/document ed in this visit Risk for Falls Disciplines: Skilled Services 06/11/2022 Active 1 goal linked to scheduled/documen carol intervention 1 goal intervention scheduled/document ed in this visit Pain Disciplines: Skilled Services 06/11/2022 Active 1 goal linked to scheduled/documen carol intervention 1 goal intervention scheduled/document ed in this visit Nutrition/Hydration Disciplines: Skilled Services 06/11/2022 Active 1 goal linked to scheduled/documen carol intervention 1 goal intervention scheduled/document ed in this visit Advance Directives Disciplines: Skilled Services 06/11/2022 Active 1 goal linked to scheduled/documen carol intervention 1 goal intervention scheduled/document ed in this visit SN Integumentary/Wound s Disciplines: SN 06/11/2022 Active 1 goal linked to scheduled/documen carol intervention 1 goal intervention scheduled/document ed in this visit SN Cardiovascular Condition Disciplines: SN 06/11/2022 Active 1 goal linked to scheduled/documen carol intervention 1 goal intervention scheduled/document ed in this visit SN Learning Assessment Disciplines: SN 06/11/2022 Active 1 goal linked to scheduled/documen carol intervention 1 goal intervention scheduled/document ed in this visit Goals Goal Associated Problem Outcome Goal Met? Visit Notes Patient to maintain parameters within physician-specified ranges throughout certification period Physician Specific Parameters No Manage Risk for falls Description: Patient/caregiver will verbalize knowledge of individualized fall prevention strategies by 08/09/22. Risk for Falls No Manage Pain Description: Patient/caregiver will verbalize knowledge and understanding of appropriate techniques to control pain, including pain medication and non-pharmacological techniques. Patient will verbalize or demonstrate an acceptable level of pain as evidenced by a pain score of 0-4/10 and improvement in ability to perform activities of daily living to be achieved by through end of cert. Pain No Manage Nutrition/Hydration Description: Patient/caregiver will verbalize/demonstrate knowledge of prescribed diet and/or healthy nutrition to be achieved by 08/09/22. Nutrition/Hydration No Patient/caregiver will make healthcare providers aware of and any changes to Advance Directives throughout certification period Advance Directives No Patient/Caregiver will have improved healing and be free of signs and symptoms of complications Description: Patient/caregiver will verbalize management strategies to promote wound healing & prevent complications as evidenced by improved healing & no complications by 08/09/22. SN Integumentary/Wounds No Improved management of cardiovascular disease Description: Improve patient/caregiver management of cardiac disease as evidenced by patient/caregiver ability to teach back cardiac management strategies by 08/09/22. SN Cardiovascular Condition No Demonstrate understanding of education Description: Patient and/or caregiver will verbalize understanding of educational instruction provided throughout certification period. SN Learning Assessment No Interventions Intervention Associated Problem/Goal Status Variance Visit Notes SPO2 Description: Notify Marcio Vasquez [employer] if pulse ox is <92% at rest. Problem:Physician Specific Parameters Goal:Patient to maintain parameters within physician-specified ranges throughout certification period Completed Instruct on individual fall risk factors and strategies to prevent falls and injuries caused by falls. Problem:Risk for Falls Goal:Manage Risk for falls Completed SN: Patient instructed on Eliminating Environmental Hazards: Keep pathways clear and Keep rooms and walkways well lit Instruct on pain and instruct on strategies to control pain Problem:Pain Goal:Manage Pain Completed patient and caregiver instructed on techniques to control pain including Pharmacological measures and Non-Pharmacological measures; rest, positioning/elevation, distraction and breathing/relaxation. Define patient s appetite/hydration status and implement strategies to improve compliance with prescribed diet and/or healthy nutrition. Problem:Nutrition/Hyd ration Goal:Manage Nutrition/Hydration Completed instructed patient and caregiver on implementing strategies to comply with healthy nutrition and adequate hydration Determine patient's Advance Directive Status Description: Patient does not have advance directives. Patient/Caregiver declined Advance Directive information. Problem:Advance Directives Goal:Patient/caregive r will make healthcare providers aware of and any changes to Advance Directives throughout certification period Completed Discussed Advance Directives with Patient and/or Caregiver. Referred patient to Home Care handbook for further information on Healthcare DPOA & Living Will. Wound Vac: Perform Negative Pressure Wound Therapy Description: Location: L leg Frequency: 3 times a week and PRN Order: Cleanse nena-wound and wound with normal saline Skin prep to nena-wound as needed. Apply adaptive gauze/contact layer to wound bed as clinically indicated. Use calcium alginate and or foam adhesive dressing to protect open areas to periwound. Pack wound with black foam. Cover foam with transparent film drape and attach trac pad to film. Negative pressure to be set at pressure: 125 mmHg Continuous. Instruct on wet to dry dressing change for wound vac malfunction and to call [facility] to report. Measure wounds each dressing change. Problem:SN Integumentary/Wounds Goal:Patient/Caregive r will have improved healing and be free of signs and symptoms of complications Completed Completed. Patient did tolerate well. Patient and Caregiver instructed on removing wound vac in case of malfunction, applying wet to dry dressing, and calling [facility] Triage department to report wound vac off. Verified wet to dry dressing supplies in home. Instruct on cardiovascular disease process and management of condition Description: Patient has following cardiac diagnosis(es): Hypertension. Problem:SN Cardiovascular Condition Goal:Improved management of cardiovascular disease Completed patient instructed on cardiac disease process and self monitoring & symptom reporting. Instruct and educate on knowledge deficits Problem:SN Learning Assessment Goal:Demonstrate understanding of education Completed patient and caregiver verbalize and/or demonstrate understanding of nursing education completed today. Education methods include: verbal cues. Further education required to improve knowledge and compliance with cardiac disease management, fall prevention/home safety strategies, incision/wound care management, nutrition and pain management. documented in this encounter [facility] for referral (narrative)* Diagnostic Procedure Only (Routine) - Pending Review Specialty Diagnoses / Procedures Referred By Fabian canales Referred To Contact XR IMAGING Diagnoses Rib pain on left side Procedures XR THORACIC GENERAL 3V AP/LAT/SWIMMERS RADEX SPINE THORACIC 3 VIEWS Marcio Vasquez APRN.[address] [place] [address] Xr Imaging Referral ID Status Reason Start Date Expiration Date Visits Requested Visits Authorized [id number] Pending Review Auto-Generat ed Referral 2 10/08/2023 1 1 [facility] for referral (narrative)* Outpatient Procedure (Routine) - Pending Review Specialty Diagnoses / Procedures Referred By Fabian canales Referred To Contact [facility] Diagnoses Dyspnea, unspecified type Lung crackles Procedures ECHO ECHO TTHRC R-T 2D W/WOM-MODE COMPL SPEC&COLR D Marcio Vasquez APRN.CNP [address] [place] [address] [facility] [place] [address] Referral ID Status Reason Start Date Expiration Date Visits Requested Visits Authorized [id number] Pending Review Auto-Generat ed Referral 09/22/2024 1 1 [facility] Diagnostic Procedure Only (Routine) - New Request Specialty Diagnoses / Procedures Referred By Fabian canales Referred To Contact NEUROLOGICAL VENDOR Diagnoses PRERNA (obstructive sleep apnea) Procedures HOME SLEEP APNEA TEST (HSAT) SLEEP STD AIRFLOW HRT RATE&O2 SAT EFFORT Marcio Guillen APRN.CNP [address] [place] [address] [facility] [address] [place] [address] Referral ID Status Reason Start Date Expiration Date Visits Requested Visits Authorized [id number] New Request Auto-Generat ed Referral 05/13/2024 05/13/2025 1 1 [facility] Summary Purpose Family History No Family History Records FoundNo Family History Records FoundNo Family History Records FoundNo Family History Records Found Advance Directives No Advanced Directives Records FoundLatest Code Status on File Code Status Date Activated Date Inactivated Comments Full Code 06/11/2022 4:55 PM Latest Code Status on File Code Status Date Activated Date Inactivated Comments Full Code 06/11/2022 4:55 PM 06/16/2022 9:35 AM Latest Code Status on File Code Status Date Activated Date Inactivated Comments Full Code 06/11/2022 4:55 PM 06/16/2022 9:35 AM Latest Code Status on File Code Status Date Activated Date Inactivated Comments Full Code 06/11/2022 4:55 PM 06/16/2022 9:35 AM Latest Code Status on File Code Status Date Activated Date Inactivated Comments Full Code 06/11/2022 4:55 PM 06/16/2022 9:35 AM Date Activated Date Inactivated Comments 12/31/2023 10:46 PM 01/02/2024 6:11 PM Question Answer Comments Full Code Order Discussed With: Patient Date Activated Date Inactivated Comments 06/11/2022 4:55 PM 06/16/2022 9:35 AM Date Activated Date Inactivated Comments 12/31/2023 10:46 PM 01/02/2024 6:11 PM Question Answer Comments Full Code Order Discussed With: Patient Date Activated Date Inactivated Comments 06/11/2022 4:55 PM 06/16/2022 9:35 AM Reason for Referral Specialty Diagnoses / Procedures Referred By Contac t Referred To Contact Diagnoses Wound of left lower extremity, subsequent encounter Procedures CONSULT TO WOUND CENTER () Marcio Vasquez APRN.BUSINESS SUPPORT ASSOCIATE [address] [place] [address] Referral ID Status Reason Start Date Expiration Date Visits Requested Visits Authorized [id number] Ref Not Required PCP Requested Referral 06/02/2022 08/31/2022 1 1 Specialty Diagnoses / Procedures Referred By Contac t Referred To Contact Diagnoses Wound of left lower extremity, subsequent encounter Procedures CONSULT TO WOUND CENTER () Marcio Vasquez APRN.[facility] [address] [place] [address] [place], [place] W[address] [place] [address] Referral ID Status Reason Start Date Expiration Date Visits Requested Visits Authorized [id number] Ref Not Required PCP Requested Referral 07/02/2022 09/30/2022 1 1 Specialty Diagnoses / Procedures Referred By Contac t Referred To Contact General Surgery / FAMILY MEDICINE Diagnoses Choledocholithiasis Procedures CONSULT TO GENERAL SURGERY OFFICE/OUTPATIENT NEW HIGH MDM 60-74 MINUTES OFFICE/OUTPATIENT NEW MODERATE MDM 45-59 MINUTES Marcio Vasquez CATALYST IMPREGNATOR.BUSINESS SUPPORT ASSOCIATE [address] [place] [address] [facility] [address] [place] [address] Referral ID Status Reason Start Date Expiration Date Visits Requested Visits Authorized [id number] Authorized PCP Requested Referral 10/26/2021 10/25/2022 1 1 Specialty Diagnoses / Procedures Referred By Contac t Referred To Contact Vascular Surgery / FAMILY MEDICINE Diagnoses Bilateral pulmonary embolism (HCC) Procedures CONSULT TO VASCULAR SURGERY OFFICE/OUTPATIENT NEW HIGH MDM 60-74 MINUTES OFFICE/OUTPATIENT NEW MODERATE MDM 45-59 MINUTES Marcio Vasquez, CATALYST IMPREGNATOR.BUSINESS SUPPORT ASSOCIATE [address] [place] [address] [facility] [address] [place] [address] Referral ID Status Reason Start Date Expiration Date Visits Requested Visits Authorized [id number] Authorized PCP Requested Referral 10/26/2021 10/25/2022 1 1 Specialty Diagnoses / Procedures Referred By Contac t Referred To Contact CT IMAGING Diagnoses Chest pain, unspecified type Procedures CT CHEST W IVCON PE DIAGNOSTIC COMPUTED TOMOGRAPHY THORAX W/CONTRAST Bran Alonzo MD [address] [place] [address] Ct Imaging Referral ID Status Reason Start Date Expiration Date Visits Requested Visits Authorized [id number] Pending Review Auto-Generat ed Referral 2 10/24/2023 1 1 Referral ID Status Reason Start Date Expiration Date V isits Requested Visits Authorized [id number] Closed Auto-Generate d Referral 10/03/2022 12/02/2022 1 1 Specialty Diagnoses / Procedures Referred By Contac t Referred To Contact Dermatology Diagnoses Neoplasm of uncertain behavior of skin Procedures CONSULT TO DERMATOLOGY OFFICE/OUTPATIENT NEW HIGH MDM 60 MINUTES Marcio Vasquez, CATALYST IMPREGNATOR.[address] [address] Referral ID Status Reason Start Date Expiration Date Visits Requested Visits Authorized [id number] Authorized PCP Requested Referral 01/12/2024 01/11/2025 1 1 Specialty Diagnoses / Procedures Referred By Contac t Referred To Contact Edgar Almaraz MD [address] [facility] [address] [place] [address] Referral ID Status Reason Start Date Expiration Date Visits Re quested Visits Authorized [id number] Closed 1 1 Specialty Diagnoses / Procedures Referred By Contac t Referred To Contact MR IMAGING Diagnoses Low testosterone Procedures MRI PITUITARY WO/W IVCON MRI BRAIN BRAIN STEM W/O W/CONTRAST MATERIAL Jessica Ellis MD [address] [address] [place] [address] Referral ID Status Reason Start Date Expiration Date Visits Requested Visits Authorized [id number] Pending Review Auto-Generat ed Referral 04/14/2024 05/14/2025 1 1 Specialty Diagnoses / Procedures Referred By Contact Referred To Contact Endocrinology / [facility]PART[facility] Diagnoses Low testosterone Procedures CONSULT TO ENDOCRINOLOGY OFFICE/OUTPATIENT NEW [facility] MDM 60 MINUTES Marcio Vasquez, CATALYST IMPREGNATOR.BUSINESS SUPPORT ASSOCIATE [address] [place] [address] Caleb Krueger MD [address] [place] [address] Referral ID Status Reason Start Date Expiration Date Visits Requested Visits Authorized [id number] Authorized PCP Requested Referral 01/29/2024 01/28/2025 1 1 Health Concerns Infection Onset Date Last Indicated Resolved Time COVID-19 Rule-Out 06/04/2022 06/04/2022 Infection Onset Date Last Indicated Resolved Time COVID-19 Rule-Out 06/04/2022 06/04/2022 06/04/2022 5:44 PM EDT Additional Source Comments (unrecognized sect ion and content) No Status Records FoundNo Status Records FoundNo Status Records FoundNo Status Records Found INFORMATION SOURCE (unrecogn ized section and content) DATE CREATED AUTHOR 01/19/2022 [facility] DATE CREATED AUTHOR AUTHOR'S ORGANIZ ATION 02/13/2024 [facility] DATE CREATED AUTHOR AUTHOR'S ORGANIZ ATION 06/09/2024 [facility] DATE CREATED AUTHOR AUTHOR'S ORGANIZ ATION 08/08/2025 [facility] Source Comments (unrecognize d section and content) In the event this informatio n is protected by the Federal Confidentiality of Alcohol and Drug Abuse Patient Records regulations: The Federal rules restrict any use of the information to criminally investigate or prosecute any alcohol or drug abuse patient.[facility] the event this information is protected by the Federal Confidentiality of Alcohol and Drug Abuse Patient Records regulations: The Federal rules restrict any use of the information to criminally investigate or prosecute any alcohol or drug abuse patient.[facility] the event this information is protected by the Federal Confidentiality of Alcohol and Drug Abuse Patient Records regulations: The Federal rules restrict any use of the information to criminally investigate or prosecute any alcohol or drug abuse patient.[facility] the event this information is protected by the Federal Confidentiality of Alcohol and Drug Abuse Patient Records regulations: The Federal rules restrict any use of the information to criminally investigate or prosecute any alcohol or drug abuse patient.[facility] the event this information is protected by the Federal Confidentiality of Alcohol and Drug Abuse Patient Records regulations: The Federal rules restrict any use of the information to criminally investigate or prosecute any alcohol or drug abuse patient.[facility] the event this information is protected by the Federal Confidentiality of Alcohol and Drug Abuse Patient Records regulations: The Federal rules restrict any use of the information to criminally investigate or prosecute any alcohol or drug abuse patient.[facility] the event this information is protected by the Federal Confidentiality of Alcohol and Drug Abuse Patient Records regulations: The Federal rules restrict any use of the information to criminally investigate or prosecute any alcohol or drug abuse patient.[facility] the event this information is protected by the Federal Confidentiality of Alcohol and Drug Abuse Patient Records regulations: The Federal rules restrict any use of the information to criminally investigate or prosecute any alcohol or drug abuse patient.[facility] the event this information is protected by the Federal Confidentiality of Alcohol and Drug Abuse Patient Records regulations: The Federal rules restrict any use of the information to criminally investigate or prosecute any alcohol or drug abuse patient.[facility] the event this information is protected by the Federal Confidentiality of Alcohol and Drug Abuse Patient Records regulations: The Federal rules restrict any use of the information to criminally investigate or prosecute any alcohol or drug abuse patient.[facility] the event this information is protected by the Federal Confidentiality of Alcohol and Drug Abuse Patient Records regulations: The Federal rules restrict any use of the information to criminally investigate or prosecute any alcohol or drug abuse patient.[facility]In the event this information is protected by the Federal Confidentiality of Alcohol and Drug Abuse Patient Records regulations: The Federal rules restrict any use of the information to criminally investigate or prosecute any alcohol or drug abuse patient.[facility] the event this information is protected by the Federal Confidentiality of Alcohol and Drug Abuse Patient Records regulations: The Federal rules restrict any use of the information to criminally investigate or prosecute any alcohol or drug abuse patient.[facility] the event this information is protected by the Federal Confidentiality of Alcohol and Drug Abuse Patient Records regulations: The Federal rules restrict any use of the information to criminally investigate or prosecute any alcohol or drug abuse patient.[facility]In the event this information is protected by the Federal Confidentiality of Alcohol and Drug Abuse Patient Records regulations: The Federal rules restrict any use of the information to criminally investigate or prosecute any alcohol or drug abuse patient.[facility]In the event this information is protected by the Federal Confidentiality of Alcohol and Drug Abuse Patient Records regulations: The Federal rules restrict any use of the information to criminally investigate or prosecute any alcohol or drug abuse patient.[facility] the event this information is protected by the Federal Confidentiality of Alcohol and Drug Abuse Patient Records regulations: The Federal rules restrict any use of the information to criminally investigate or prosecute any alcohol or drug abuse patient.[facility] the event this information is protected by the Federal Confidentiality of Alcohol and Drug Abuse Patient Records regulations: The Federal rules restrict any use of the information to criminally investigate or prosecute any alcohol or drug abuse patient.[facility]In the event this information is protected by the Federal Confidentiality of Alcohol and Drug Abuse Patient Records regulations: The Federal rules restrict any use of the information to criminally investigate or prosecute any alcohol or drug abuse patient.[facility]In the event this information is protected by the Federal Confidentiality of Alcohol and Drug Abuse Patient Records regulations: The Federal rules restrict any use of the information to criminally investigate or prosecute any alcohol or drug abuse patient.[facility]In the event this information is protected by the Federal Confidentiality of Alcohol and Drug Abuse Patient Records regulations: The Federal rules restrict any use of the information to criminally investigate or prosecute any alcohol or drug abuse patient.[facility]In the event this information is protected by the Federal Confidentiality of Alcohol and Drug Abuse Patient Records regulations: The Federal rules restrict any use of the information to criminally investigate or prosecute any alcohol or drug abuse patient.[facility]In the event this information is protected by the Federal Confidentiality of Alcohol and Drug Abuse Patient Records regulations: The Federal rules restrict any use of the information to criminally investigate or prosecute any alcohol or drug abuse patient.[facility]In the event this information is protected by the Federal Confidentiality of Alcohol and Drug Abuse Patient Records regulations: The Federal rules restrict any use of the information to criminally investigate or prosecute any alcohol or drug abuse patient.[facility]In the event this information is protected by the Federal Confidentiality of Alcohol and Drug Abuse Patient Records regulations: The Federal rules restrict any use of the information to criminally investigate or prosecute any alcohol or drug abuse patient.[facility]In the event this information is protected by the Federal Confidentiality of Alcohol and Drug Abuse Patient Records regulations: The Federal rules restrict any use of the information to criminally investigate or prosecute any alcohol or drug abuse patient.[facility]In the event this information is protected by the Federal Confidentiality of Alcohol and Drug Abuse Patient Records regulations: The Federal rules restrict any use of the information to criminally investigate or prosecute any alcohol or drug abuse patient.[facility]In the event this information is protected by the Federal Confidentiality of Alcohol and Drug Abuse Patient Records regulations: The Federal rules restrict any use of the information to criminally investigate or prosecute any alcohol or drug abuse patient.[facility]In the event this information is protected by the Federal Confidentiality of Alcohol and Drug Abuse Patient Records regulations: The Federal rules restrict any use of the information to criminally investigate or prosecute any alcohol or drug abuse patient.[facility]In the event this information is protected by the Federal Confidentiality of Alcohol and Drug Abuse Patient Records regulations: The Federal rules restrict any use of the information to criminally investigate or prosecute any alcohol or drug abuse patient.[facility]In the event this information is protected by the Federal Confidentiality of Alcohol and Drug Abuse Patient Records regulations: The Federal rules restrict any use of the information to criminally investigate or prosecute any alcohol or drug abuse patient.[facility]In the event this information is protected by the Federal Confidentiality of Alcohol and Drug Abuse Patient Records regulations: The Federal rules restrict any use of the information to criminally investigate or prosecute any alcohol or drug abuse patient.[facility]In the event this information is protected by the Federal Confidentiality of Alcohol and Drug Abuse Patient Records regulations: The Federal rules restrict any use of the information to criminally investigate or prosecute any alcohol or drug abuse patient.[facility]In the event this information is protected by the Federal Confidentiality of Alcohol and Drug Abuse Patient Records regulations: The Federal rules restrict any use of the information to criminally investigate or prosecute any alcohol or drug abuse patient.[facility]In the event this information is protected by the Federal Confidentiality of Alcohol and Drug Abuse Patient Records regulations: The Federal rules restrict any use of the information to criminally investigate or prosecute any alcohol or drug abuse patient.[facility]In the event this information is protected by the Federal Confidentiality of Alcohol and Drug Abuse Patient Records regulations: The Federal rules restrict any use of the information to criminally investigate or prosecute any alcohol or drug abuse patient.[facility]In the event this information is protected by the Federal Confidentiality of Alcohol and Drug Abuse Patient Records regulations: The Federal rules restrict any use of the information to criminally investigate or prosecute any alcohol or drug abuse patient.[facility]In the event this information is protected by the Federal Confidentiality of Alcohol and Drug Abuse Patient Records regulations: The Federal rules restrict any use of the information to criminally investigate or prosecute any alcohol or drug abuse patient.[facility]In the event this information is protected by the Federal Confidentiality of Alcohol and Drug Abuse Patient Records regulations: The Federal rules restrict any use of the information to criminally investigate or prosecute any alcohol or drug abuse patient.[facility]In the event this information is protected by the Federal Confidentiality of Alcohol and Drug Abuse Patient Records regulations: The Federal rules restrict any use of the information to criminally investigate or prosecute any alcohol or drug abuse patient.[facility]In the event this information is protected by the Federal Confidentiality of Alcohol and Drug Abuse Patient Records regulations: The Federal rules restrict any use of the information to criminally investigate or prosecute any alcohol or drug abuse patient.[facility]In the event this information is protected by the Federal Confidentiality of Alcohol and Drug Abuse Patient Records regulations: The Federal rules restrict any use of the information to criminally investigate or prosecute any alcohol or drug abuse patient.[facility]In the event this information is protected by the Federal Confidentiality of Alcohol and Drug Abuse Patient Records regulations: The Federal rules restrict any use of the information to criminally investigate or prosecute any alcohol or drug abuse patient.[facility]In the event this information is protected by the Federal Confidentiality of Alcohol and Drug Abuse Patient Records regulations: The Federal rules restrict any use of the information to criminally investigate or prosecute any alcohol or drug abuse patient.[facility]In the event this information is protected by the Federal Confidentiality of Alcohol and Drug Abuse Patient Records regulations: The Federal rules restrict any use of the information to criminally investigate or prosecute any alcohol or drug abuse patient.[facility]In the event this information is protected by the Federal Confidentiality of Alcohol and Drug Abuse Patient Records regulations: The Federal rules restrict any use of the information to criminally investigate or prosecute any alcohol or drug abuse patient.[facility]In the event this information is protected by the Federal Confidentiality of Alcohol and Drug Abuse Patient Records regulations: The Federal rules restrict any use of the information to criminally investigate or prosecute any alcohol or drug abuse patient.[facility]In the event this information is protected by the Federal Confidentiality of Alcohol and Drug Abuse Patient Records regulations: The Federal rules restrict any use of the information to criminally investigate or prosecute any alcohol or drug abuse patient.[facility]In the event this information is protected by the Federal Confidentiality of Alcohol and Drug Abuse Patient Records regulations: The Federal rules restrict any use of the information to criminally investigate or prosecute any alcohol or drug abuse patient.[facility]In the event this information is protected by the Federal Confidentiality of Alcohol and Drug Abuse Patient Records regulations: The Federal rules restrict any use of the information to criminally investigate or prosecute any alcohol or drug abuse patient.[facility]In the event this information is protected by the Federal Confidentiality of Alcohol and Drug Abuse Patient Records regulations: The Federal rules restrict any use of the information to criminally investigate or prosecute any alcohol or drug abuse patient.[facility]In the event this information is protected by the Federal Confidentiality of Alcohol and Drug Abuse Patient Records regulations: The Federal rules restrict any use of the information to criminally investigate or prosecute any alcohol or drug abuse patient.[facility]In the event this information is protected by the Federal Confidentiality of Alcohol and Drug Abuse Patient Records regulations: The Federal rules restrict any use of the information to criminally investigate or prosecute any alcohol or drug abuse patient.[facility]In the event this information is protected by the Federal Confidentiality of Alcohol and Drug Abuse Patient Records regulations: The Federal rules restrict any use of the information to criminally investigate or prosecute any alcohol or drug abuse patient.[facility]In the event this information is protected by the Federal Confidentiality of Alcohol and Drug Abuse Patient Records regulations: The Federal rules restrict any use of the information to criminally investigate or prosecute any alcohol or drug abuse patient.[facility]In the event this information is protected by the Federal Confidentiality of Alcohol and Drug Abuse Patient Records regulations: The Federal rules restrict any use of the information to criminally investigate or prosecute any alcohol or drug abuse patient.[facility]In the event this information is protected by the Federal Confidentiality of Alcohol and Drug Abuse Patient Records regulations: The Federal rules restrict any use of the information to criminally investigate or prosecute any alcohol or drug abuse patient.[facility]In the event this information is protected by the Federal Confidentiality of Alcohol and Drug Abuse Patient Records regulations: The Federal rules restrict any use of the information to criminally investigate or prosecute any alcohol or drug abuse patient.[facility]In the event this information is protected by the Federal Confidentiality of Alcohol and Drug Abuse Patient Records regulations: The Federal rules restrict any use of the information to criminally investigate or prosecute any alcohol or drug abuse patient.[facility] the event this information is protected by the Federal Confidentiality of Alcohol and Drug Abuse Patient Records regulations: The Federal rules restrict any use of the information to criminally investigate or prosecute any alcohol or drug abuse patient.[facility] the event this information is protected by the Federal Confidentiality of Alcohol and Drug Abuse Patient Records regulations: The Federal rules restrict any use of the information to criminally investigate or prosecute any alcohol or drug abuse patient.[facility] HospitalIn the event this information is protected by the Federal Confidentiality of Alcohol and Drug Abuse Patient Records regulations: The Federal rules restrict any use of the information to criminally investigate or prosecute any alcohol or drug abuse patient.[facility] the event this information is protected by the Federal Confidentiality of Alcohol and Drug Abuse Patient Records regulations: The Federal rules restrict any use of the information to criminally investigate or prosecute any alcohol or drug abuse patient.[facility]In the event this information is protected by the Federal Confidentiality of Alcohol and Drug Abuse Patient Records regulations: The Federal rules restrict any use of the information to criminally investigate or prosecute any alcohol or drug abuse patient.[facility] HospitalIn the event this information is protected by the Federal Confidentiality of Alcohol and Drug Abuse Patient Records regulations: The Federal rules restrict any use of the information to criminally investigate or prosecute any alcohol or drug abuse patient.[facility] HospitalIn the event this information is protected by the Federal Confidentiality of Alcohol and Drug Abuse Patient Records regulations: The Federal rules restrict any use of the information to criminally investigate or prosecute any alcohol or drug abuse patient.[facility] HospitalIn the event this information is protected by the Federal Confidentiality of Alcohol and Drug Abuse Patient Records regulations: The Federal rules restrict any use of the information to criminally investigate or prosecute any alcohol or drug abuse patient.[facility]In the event this information is protected by the Federal Confidentiality of Alcohol and Drug Abuse Patient Records regulations: The Federal rules restrict any use of the information to criminally investigate or prosecute any alcohol or drug abuse patient.[facility] HospitalIn the event this information is protected by the Federal Confidentiality of Alcohol and Drug Abuse Patient Records regulations: The Federal rules restrict any use of the information to criminally investigate or prosecute any alcohol or drug abuse patient.[facility] HospitalIn the event this information is protected by the Federal Confidentiality of Alcohol and Drug Abuse Patient Records regulations: The Federal rules restrict any use of the information to criminally investigate or prosecute any alcohol or drug abuse patient.[facility] HospitalIn the event this information is protected by the Federal Confidentiality of Alcohol and Drug Abuse Patient Records regulations: The Federal rules restrict any use of the information to criminally investigate or prosecute any alcohol or drug abuse patient.[facility] HospitalIn the event this information is protected by the Federal Confidentiality of Alcohol and Drug Abuse Patient Records regulations: The Federal rules restrict any use of the information to criminally investigate or prosecute any alcohol or drug abuse patient.[facility] HospitalIn the event this information is protected by the Federal Confidentiality of Alcohol and Drug Abuse Patient Records regulations: The Federal rules restrict any use of the information to criminally investigate or prosecute any alcohol or drug abuse patient.[facility] HospitalIn the event this information is protected by the Federal Confidentiality of Alcohol and Drug Abuse Patient Records regulations: The Federal rules restrict any use of the information to criminally investigate or prosecute any alcohol or drug abuse patient.[facility] HospitalIn the event this information is protected by the Federal Confidentiality of Alcohol and Drug Abuse Patient Records regulations: The Federal rules restrict any use of the information to criminally investigate or prosecute any alcohol or drug abuse patient.[facility] HospitalIn the event this information is protected by the Federal Confidentiality of Alcohol and Drug Abuse Patient Records regulations: The Federal rules restrict any use of the information to criminally investigate or prosecute any alcohol or drug abuse patient.[facility] HospitalIn the event this information is protected by the Federal Confidentiality of Alcohol and Drug Abuse Patient Records regulations: The Federal rules restrict any use of the information to criminally investigate or prosecute any alcohol or drug abuse patient.[facility] HospitalIn the event this information is protected by the Federal Confidentiality of Alcohol and Drug Abuse Patient Records regulations: The Federal rules restrict any use of the information to criminally investigate or prosecute any alcohol or drug abuse patient.[facility] HospitalIn the event this information is protected by the Federal Confidentiality of Alcohol and Drug Abuse Patient Records regulations: The Federal rules restrict any use of the information to criminally investigate or prosecute any alcohol or drug abuse patient.[facility] HospitalIn the event this information is protected by the Federal Confidentiality of Alcohol and Drug Abuse Patient Records regulations: The Federal rules restrict any use of the information to criminally investigate or prosecute any alcohol or drug abuse patient.[facility] HospitalIn the event this information is protected by the Federal Confidentiality of Alcohol and Drug Abuse Patient Records regulations: The Federal rules restrict any use of the information to criminally investigate or prosecute any alcohol or drug abuse patient.[facility] HospitalIn the event this information is protected by the Federal Confidentiality of Alcohol and Drug Abuse Patient Records regulations: The Federal rules restrict any use of the information to criminally investigate or prosecute any alcohol or drug abuse patient.[facility] HospitalIn the event this information is protected by the Federal Confidentiality of Alcohol and Drug Abuse Patient Records regulations: The Federal rules restrict any use of the information to criminally investigate or prosecute any alcohol or drug abuse patient.[facility] HospitalIn the event this information is protected by the Federal Confidentiality of Alcohol and Drug Abuse Patient Records regulations: The Federal rules restrict any use of the information to criminally investigate or prosecute any alcohol or drug abuse patient.[facility] HospitalIn the event this information is protected by the Federal Confidentiality of Alcohol and Drug Abuse Patient Records regulations: The Federal rules restrict any use of the information to criminally investigate or prosecute any alcohol or drug abuse patient.[facility] HospitalIn the event this information is protected by the Federal Confidentiality of Alcohol and Drug Abuse Patient Records regulations: The Federal rules restrict any use of the information to criminally investigate or prosecute any alcohol or drug abuse patient.[facility] HospitalIn the event this information is protected by the Federal Confidentiality of Alcohol and Drug Abuse Patient Records regulations: The Federal rules restrict any use of the information to criminally investigate or prosecute any alcohol or drug abuse patient.[facility] HospitalIn the event this information is protected by the Federal Confidentiality of Alcohol and Drug Abuse Patient Records regulations: The Federal rules restrict any use of the information to criminally investigate or prosecute any alcohol or drug abuse patient.[facility] HospitalIn the event this information is protected by the Federal Confidentiality of Alcohol and Drug Abuse Patient Records regulations: The Federal rules restrict any use of the information to criminally investigate or prosecute any alcohol or drug abuse patient.[facility] HospitalIn the event this information is protected by the Federal Confidentiality of Alcohol and Drug Abuse Patient Records regulations: The Federal rules restrict any use of the information to criminally investigate or prosecute any alcohol or drug abuse patient.[facility] HospitalIn the event this information is protected by the Federal Confidentiality of Alcohol and Drug Abuse Patient Records regulations: The Federal rules restrict any use of the information to criminally investigate or prosecute any alcohol or drug abuse patient.[facility] HospitalIn the event this information is protected by the Federal Confidentiality of Alcohol and Drug Abuse Patient Records regulations: The Federal rules restrict any use of the information to criminally investigate or prosecute any alcohol or drug abuse patient.[facility] HospitalIn the event this information is protected by the Federal Confidentiality of Alcohol and Drug Abuse Patient Records regulations: The Federal rules restrict any use of the information to criminally investigate or prosecute any alcohol or drug abuse patient.[facility] HospitalIn the event this information is protected by the Federal Confidentiality of Alcohol and Drug Abuse Patient Records regulations: The Federal rules restrict any use of the information to criminally investigate or prosecute any alcohol or drug abuse patient.[facility]In the event this information is protected by the Federal Confidentiality of Alcohol and Drug Abuse Patient Records regulations: The Federal rules restrict any use of the information to criminally investigate or prosecute any alcohol or drug abuse patient.[facility] HospitalIn the event this information is protected by the Federal Confidentiality of Alcohol and Drug Abuse Patient Records regulations: The Federal rules restrict any use of the information to criminally investigate or prosecute any alcohol or drug abuse patient.[facility]In the event this information is protected by the Federal Confidentiality of Alcohol and Drug Abuse Patient Records regulations: The Federal rules restrict any use of the information to criminally investigate or prosecute any alcohol or drug abuse patient.[facility] HospitalIn the event this information is protected by the Federal Confidentiality of Alcohol and Drug Abuse Patient Records regulations: The Federal rules restrict any use of the information to criminally investigate or prosecute any alcohol or drug abuse patient.[facility]In the event this information is protected by the Federal Confidentiality of Alcohol and Drug Abuse Patient Records regulations: The Federal rules restrict any use of the information to criminally investigate or prosecute any alcohol or drug abuse patient.[facility]In the event this information is protected by the Federal Confidentiality of Alcohol and Drug Abuse Patient Records regulations: The Federal rules restrict any use of the information to criminally investigate or prosecute any alcohol or drug abuse patient.[facility]In the event this information is protected by the Federal Confidentiality of Alcohol and Drug Abuse Patient Records regulations: The Federal rules restrict any use of the information to criminally investigate or prosecute any alcohol or drug abuse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 MD [address] [place] [address] Referring Internal Medicine 06/09/22 Sounding Device Operator Relationship Specialty Start Date End Date Marcio Vasquez APRN.BUSINESS SUPPORT ASSOCIATE [address] [place] [address] PCP - General Family Medicine 12/12/20 Marcio Vasquez, CATALYST IMPREGNATOR.BUSINESS SUPPORT ASSOCIATE [address] [place] [address] Home Care Provider Family Medicine 06/09/22 Michael Boogie MD [address] [place] [address] Referring Internal Medicine 06/09/22 Sounding Device Operator Relationship Specialty Start Date End Date Marcio Vasquez CATALYST IMPREGNATOR.BUSINESS SUPPORT ASSOCIATE [address] [place] [address] PCP - General Family Medicine 12/12/20 Marcio Vasquez, CATALYST IMPREGNATOR.BUSINESS SUPPORT ASSOCIATE [address] [place] [place] [address] Home Care Provider Family Medicine 06/09/22 Michael Boogie MD [address] [place] [address] Referring Internal Medicine 06/09/22 Sounding Device Operator Relationship Specialty Start Date End Date Marcio Vasquez, CATALYST IMPREGNATOR.BUSINESS SUPPORT ASSOCIATE [address] [place] [address] PCP - General Family Medicine 12/12/20 Marcio Vasquez CATALYST IMPREGNATOR.BUSINESS SUPPORT ASSOCIATE [address] [place] [address] Home Care Provider Family Medicine 06/09/22 Michael Boogie MD [address] [place] [address] Referring Internal Medicine 06/09/22 Sounding Device Operator Relationship Specialty Start Date End Date Marcio Vasquez, CATALYST IMPREGNATOR.BUSINESS SUPPORT ASSOCIATE [address] [place] [address] PCP - General Family Medicine 12/12/20 Marcio Vasquez, CATALYST IMPREGNATOR.BUSINESS SUPPORT ASSOCIATE [address] [place] [address] Home Care Provider Family Medicine 06/09/22 Michael Boogie MD [address] [place] [address] Referring Internal Medicine 06/09/22 Sounding Device Operator Relationship Specialty Start Date End Date Marcio Vasquez, CATALYST IMPREGNATOR.BUSINESS SUPPORT ASSOCIATE [address] [place] [address] PCP - General Family Medicine 12/12/20 Marcio Vasquez, CATALYST IMPREGNATOR.BUSINESS SUPPORT ASSOCIATE [address] [place] [address] Home Care Provider Family Medicine 06/09/22 Michael Boogie MD [address] [place] [address]27 Referring Internal Medicine 06/09/22 Sounding Device Operator Relationship Specialty Start Date End Date Marcio Vasquez, CATALYST IMPREGNATOR.BUSINESS SUPPORT ASSOCIATE [address] [place] [address] PCP - General Family Medicine 12/12/20 Marcio Vasquez, CATALYST IMPREGNATOR.BUSINESS SUPPORT ASSOCIATE [address] [place] [address] Home Care Provider Family Medicine 06/09/22 Michael Boogie MD [address] [place] [address]886 Referring Internal Medicine 06/09/22 Sounding Device Operator Relationship Specialty Start Date End Date Marcio Vasquez CATALYST IMPREGNATOR.BUSINESS SUPPORT ASSOCIATE [address] [place] [address] PCP - General Family Medicine 12/12/20 Marcio Vasquez CATALYST IMPREGNATOR.BUSINESS SUPPORT ASSOCIATE [address] [place] [address] Home Care Provider Family Medicine 06/09/22 Michael Boogie MD [address] [place] [address] Referring Internal Medicine 06/09/22 Sounding Device Operator Relationship Specialty Start Date End Date Marcio Vasquez CATALYST IMPREGNATOR.BUSINESS SUPPORT ASSOCIATE [address] [place] [address] PCP - General Family Medicine 12/12/20 Marcio Vasquez CATALYST IMPREGNATOR.BUSINESS SUPPORT ASSOCIATE [address] [place] [address] Home Care Provider Family Medicine 06/09/22 Michael Boogie MD [address] [place] [address]88 Referring Internal Medicine 06/09/22 Sounding Device Operator Relationship Specialty Start Date End Date Marcio Vasquez CATALYST IMPREGNATOR.BUSINESS SUPPORT ASSOCIATE [address] [place] [address] PCP - General Family Medicine 12/12/20 Marcio Vasquez, CATALYST IMPREGNATOR.BUSINESS SUPPORT ASSOCIATE [address] [place] [address] Home Care Provider Family Medicine 06/09/22 Michael Boogie MD [address] [place] [address]75 Referring Internal Medicine 06/09/22 Sounding Device Operator Relationship Specialty Start Date End Date Marcio Vasquez APRN.BUSINESS SUPPORT ASSOCIATE [address] [place] [address] PCP - General Family Medicine 12/12/20 Marcio Vasquez CATALYST IMPREGNATOR.BUSINESS SUPPORT ASSOCIATE [address] [place] [address] Home Care Provider Family Medicine 06/09/22 Michael Boogie MD [address] [place] [address]236 Referring Internal Medicine 06/09/22 Sounding Device Operator Relationship Specialty Start Date End Date Marcio Vasquez APRN.BUSINESS SUPPORT ASSOCIATE [address] [place] [address] PCP - General Family Medicine 12/12/20 Marcio Vasquez CATALYST IMPREGNATOR.BUSINESS SUPPORT ASSOCIATE [address] [place] [address] Home Care Provider Family Medicine 06/09/22 Michael Boogie MD [address] [place] [address]92 Referring Internal Medicine 06/09/22 Sounding Device Operator Relationship Specialty Start Date End Date Marcio Vasquez CATALYST IMPREGNATOR.BUSINESS SUPPORT ASSOCIATE [address] [place] [address] PCP - General Family Medicine 12/12/20 Marcio Vasquez CATALYST IMPREGNATOR.BUSINESS SUPPORT ASSOCIATE [address] [place] [address] Home Care Provider Family Medicine 06/09/22 Michael Boogie MD [address] [place] [address]54 Referring Internal Medicine 06/09/22 Sounding Device Operator Relationship Specialty Start Date End Date Marcio Vasquez CATALYST IMPREGNATOR.BUSINESS SUPPORT ASSOCIATE [address] [place] [address] PCP - General Family Medicine 12/12/20 Marcio Vasquez, CATALYST IMPREGNATOR.BUSINESS SUPPORT ASSOCIATE [address] [place] [address] Home Care Provider Family Medicine 06/09/22 Michael Boogie MD [address] [place] [address]15 Referring Internal Medicine 06/09/22 Sounding Device Operator Relationship Specialty Start Date End Date Marcio Vasquez CATALYST IMPREGNATOR.BUSINESS SUPPORT ASSOCIATE [address] [place] [address] PCP - General Family Medicine 12/12/20 Marcio Vasquez, CATALYST IMPREGNATOR.BUSINESS SUPPORT ASSOCIATE [address] [place] [address] Home Care Provider Family Medicine 06/09/22 Michael Boogie MD [address] [place] [address]51 Referring Internal Medicine 06/09/22 Sounding Device Operator Relationship Specialty Start Date End Date Marcio Vasquez CATALYST IMPREGNATOR.BUSINESS SUPPORT ASSOCIATE [address] [place] [address] PCP - General Family Medicine 12/12/20 Marcio Vasquez, CATALYST IMPREGNATOR.BUSINESS SUPPORT ASSOCIATE [address] [place] [address] Home Care Provider Family Medicine 06/09/22 Michael Boogie MD [address] [place] [address] 81145 Referring Internal Medicine 06/09/22 Sounding Device Operator Relationship Specialty Start Date End Date Marcio Vasquez CATALYST IMPREGNATOR.BUSINESS SUPPORT ASSOCIATE [address] [facility] [address] PCP - General Family Medicine 12/12/20 Marcio Vasquez APRN.BUSINESS SUPPORT ASSOCIATE [address] [place] [address] Home Care Provider Family Medicine 06/09/22 Michael Boogie MD [address] [place] [address] 13234 Referring Internal Medicine 06/09/22 Sounding Device Operator Relationship Specialty Start Date End Date Marcio Vasquez APRN.BUSINESS SUPPORT ASSOCIATE [address] [place] [address] PCP - General Family Medicine 12/12/20 Marcio Vasquez CATALYST IMPREGNATOR.BUSINESS SUPPORT ASSOCIATE [address] [place] [address] Home Care Provider Family Medicine 06/09/22 Michael Boogie MD [address] [place] [address] 20627 Referring Internal Medicine 06/09/22 Sounding Device Operator Relationship Specialty Start Date End Date Marcio Vasquez CATALYST IMPREGNATOR.BUSINESS SUPPORT ASSOCIATE [address] [place] [address] 21517 PCP - General Family Medicine 12/12/20 Marcio Vasquez, CATALYST IMPREGNATOR.BUSINESS SUPPORT ASSOCIATE [address] [place] [address] 18774 Home Care Provider Family Medicine 06/09/22 Michael Boogie MD [address] [place] [address]38 Referring Internal Medicine 06/09/22 Sounding Device Operator Relationship Specialty Start Date End Date Marcio Vasquez APRN.BUSINESS SUPPORT ASSOCIATE [address] [facility] [place] [address] PCP - General Family Medicine 12/12/20 Marcio Vasquez APRN.BUSINESS SUPPORT ASSOCIATE [address] [facility] [address] Home Care Provider Family Medicine 06/09/22 Michael Boogie MD [address] [place] [address]053 Referring Internal Medicine 06/09/22 Sounding Device Operator Relationship Specialty Start Date End Date Marcio Vasquez APRN.BUSINESS SUPPORT ASSOCIATE [address] [place] [address] PCP - General Family Medicine 12/12/20 Marcio Vasquez APRN.BUSINESS SUPPORT ASSOCIATE [address] [place] [address] Home Care Provider Family Medicine 06/09/22 Michael Boogie MD [address] [place] [address] 02713 Referring Internal Medicine 06/09/22 Sounding Device Operator Relationship Specialty Start Date End Date Marcio Vasquez CATALYST IMPREGNATOR.BUSINESS SUPPORT ASSOCIATE [address] [facility], [place] [id number] PCP - General Family Medicine 12/12/20 Marcio Vasquez CATALYST IMPREGNATOR.BUSINESS SUPPORT ASSOCIATE [address] [facility], [place] [address] Home Care Provider Family Medicine 06/09/22 Michael Booige MD [address] [place] [address] 25617 Referring Internal Medicine 06/09/22 Sounding Device Operator Relationship Specialty Start Date End Date Marcio Vasquez CATALYST IMPREGNATOR.BUSINESS SUPPORT ASSOCIATE [address] [place] [address]61 PCP - General Family Medicine 12/12/20 Marcio Vasquez APRN.BUSINESS SUPPORT ASSOCIATE [address] [place] [address]662 Home Care Provider Family Medicine 06/09/22 Michael Boogie MD [address] [place] [address] 36185 Referring Internal Medicine 06/09/22 Matthias Richard, director museum or zoo Cycle Consultant 01/04/24 Sounding Device Operator Relationship Specialty Start Date End Date Marcio Vasquez CATALYST IMPREGNATOR.BUSINESS SUPPORT ASSOCIATE [address] [place] [address] 15844 PCP - General Family Medicine 12/12/20 Marcio Vasquez CATALYST IMPREGNATOR.BUSINESS SUPPORT ASSOCIATE [address] [place] [address] 53586 Home Care Provider Family Medicine 06/09/22 Michael Boogie MD [address] [place] [address] 12132 Referring Internal Medicine 06/09/22 Matthias Richard, director museum or zoo Cycle Consultant 01/04/24 Sounding Device Operator Relationship Specialty Start Date End Date Marcio Vasquez, CATALYST IMPREGNATOR.BUSINESS SUPPORT ASSOCIATE [address] [facility], [place] [id number] PCP - General Family Medicine 12/12/20 Marcio Vasquez, OJ.BUSINESS SUPPORT ASSOCIATE [address] [place] [address] Home Care Provider Family Medicine 06/09/22 Michael Boogie MD [address] [place] [address] [phone] Referring Internal Medicine 06/09/22 Matthias Richard, director museum or zoo Cycle Consultant 01/04/24 Sounding Device Operator Relationship Specialty Start Date End Date Marcio Vasquez APRN.BUSINESS SUPPORT ASSOCIATE [address] [place] [address] PCP - General Family Medicine 12/12/20 Marcio Vasquez APRN.BUSINESS SUPPORT ASSOCIATE [address] [place] [address] Home Care Provider Family Medicine 06/09/22 Michael Boogie MD [address] [place] [address] 80466 Referring Internal Medicine 06/09/22 Matthias Richard, director museum or zoo Cycle Consultant 01/04/24 Sounding Device Operator Relationship Specialty Start Date End Date Marcio Vasquez CATALYST IMPREGNATOR.BUSINESS SUPPORT ASSOCIATE [address] [place] [address] PCP - General Family Medicine 12/12/20 Marcio Vasquez, CATALYST IMPREGNATOR.BUSINESS SUPPORT ASSOCIATE [address] [place] [address] Home Care Provider Family Medicine 06/09/22 Michael Boogie MD [address] [place] [address] 90119 Referring Internal Medicine 06/09/22 Matthias Richard, director museum or zoo Cycle Consultant 01/04/24 Sounding Device Operator Relationship Specialty Start Date End Date Marcio Vasquez CATALYST IMPREGNATOR.BUSINESS SUPPORT ASSOCIATE [address] [place] [id number] PCP - General Family Medicine 12/12/20 Marcio Vasquez CATALYST IMPREGNATOR.BUSINESS SUPPORT ASSOCIATE [address] [place] [address] 60041 Home Care Provider Family Medicine 06/09/22 Michael Boogie MD [address] [place] [address] [phone] Referring Internal Medicine 06/09/22 Matthias Richard, director museum or zoo Cycle Consultant 01/04/24 Sounding Device Operator Relationship Specialty Start Date End Date Marcio Vasquez CATALYST IMPREGNATOR.BUSINESS SUPPORT ASSOCIATE [address] [place] [address] 52133 PCP - General Family Medicine 12/12/20 Marcio Vasquez CATALYST IMPREGNATOR.BUSINESS SUPPORT ASSOCIATE [address] [place] [address] 74257 Home Care Provider Family Medicine 06/09/22 Michael Boogie MD [address] [place] [address] [phone] Referring Internal Medicine 06/09/22 Sounding Device Operator Relationship Specialty Start Date End Date Marcio Vasquez, CATALYST IMPREGNATOR.BUSINESS SUPPORT ASSOCIATE [address] [facility] [place] [address] PCP - General Family Medicine 12/12/20 Marcio Vasquez, CATALYST IMPREGNATOR.BUSINESS SUPPORT ASSOCIATE [address] [facility] [place] [address] Home Care Provider Family Medicine 06/09/22 Michael Boogie MD [address] [place] [address] [phone] Referring Internal Medicine 06/09/22 Sounding Device Operator Relationship Specialty Start Date End Date Marcio Vasquez CATALYST IMPREGNATOR.BUSINESS SUPPORT ASSOCIATE [address] [place] [place] [address] PCP - General Family Medicine 12/12/20 Marcio Vasquez, CATALYST IMPREGNATOR.BUSINESS SUPPORT ASSOCIATE [address] [place] [place] [address] Home Care Provider Family Medicine 06/09/22 Michael Boogie MD [address] [place] [address] [phone] Referring Internal Medicine 06/09/22 Sounding Device Operator Relationship Specialty Start Date End Date Marcio Vasquez, CATALYST IMPREGNATOR.BUSINESS SUPPORT ASSOCIATE [address] [facility] [place] [address] PCP - General Family Medicine 12/12/20 Marcio Vasquez, CATALYST IMPREGNATOR.BUSINESS SUPPORT ASSOCIATE [address] [facility] [place] [address] Home Care Provider Family Medicine 06/09/22 Michael Boogie MD [address] [place] [address] [phone] Referring Internal Medicine 06/09/22 Sounding Device Operator Relationship Specialty Start Date End Date Marcio Vasquez APRN.BUSINESS SUPPORT ASSOCIATE [address] [place] [place] [address] PCP - General Family Medicine 12/12/20 Marcio Vasquez APRN.BUSINESS SUPPORT ASSOCIATE [address] [place] [place] [address] Home Care Provider Family Medicine 06/09/22 Michael Boogie MD [address] [place] [address] [phone] Referring Internal Medicine 06/09/22 Sounding Device Operator Relationship Specialty Start Date End Date Marcio Vasquez CATALYST IMPREGNATOR.BUSINESS SUPPORT ASSOCIATE [address] [place] [place] [address] PCP - General Family Medicine 12/12/20 Marcio Vasquez APRN.BUSINESS SUPPORT ASSOCIATE [address] [place] [place] [address] Home Care Provider Family Medicine 06/09/22 Michael Boogie MD [address] [place] [address] [phone] Referring Internal Medicine 06/09/22 Sounding Device Operator Relationship Specialty Start Date End Date Marcio Vasquez APRN.BUSINESS SUPPORT ASSOCIATE [address] [place] [place] [address] PCP - General Family Medicine 12/12/20 Marcio Vasquez APRN.BUSINESS SUPPORT ASSOCIATE [address] [place] [address] Home Care Provider Family Medicine 06/09/22 Michael Bogoie MD [address] [place] [address] [phone] Referring Internal Medicine 06/09/22 Sounding Device Operator Relationship Specialty Start Date End Date Marcio Vasquez APRN.BUSINESS SUPPORT ASSOCIATE [address] [place] [address] 10675 PCP - General Family Medicine 12/12/20 Marcio Vasquez APRN.BUSINESS SUPPORT ASSOCIATE [address] [place] [address] 20808 Home Care Provider Family Medicine 06/09/22 Michael Boogie MD [address] [place] [address] [phone] Referring Internal Medicine 06/09/22 Sounding Device Operator Relationship Specialty Start Date End Date Marcio Vasquez APRN.BUSINESS SUPPORT ASSOCIATE [address] [place] [address] 48674 PCP - General Family Medicine 12/12/20 Marcio Vasquez APRN.BUSINESS SUPPORT ASSOCIATE [address] [place] [address] 82144 Home Care Provider Family Medicine 06/09/22 Michael Boogie MD [address] [place] [address] [phone] Referring Internal Medicine 06/09/22 Sounding Device Operator Relationship Specialty Start Date End Date Marcio Vasquez APRN.BUSINESS SUPPORT ASSOCIATE [address] [place] [address] PCP - General Family Medicine 12/12/20 Marcio Vasquez APRN.BUSINESS SUPPORT ASSOCIATE [address] [place] [address] Home Care Provider Family Medicine 06/09/22 Michael Boogie MD [address] [place] [address] [phone] Referring Internal Medicine 06/09/22 Sounding Device Operator Relationship Specialty Start Date End Date Marcio Vasquez CATALYST IMPREGNATOR.BUSINESS SUPPORT ASSOCIATE [address] [place] [address] 48475 PCP - General Family Medicine 12/12/20 Marcio Vasquez CATALYST IMPREGNATOR.BUSINESS SUPPORT ASSOCIATE [address] [place] [address] 02794 Home Care Provider Family Medicine 06/09/22 Michael Boogie MD [address] [place] [address] [phone] Referring Internal Medicine 06/09/22 Sounding Device Operator Relationship Specialty Start Date End Date Marcio Vasquez CATALYST IMPREGNATOR.BUSINESS SUPPORT ASSOCIATE [address] [place] [address] 08615 PCP - General Family Medicine 12/12/20 Marcio Vasquez, CATALYST IMPREGNATOR.BUSINESS SUPPORT ASSOCIATE [address] [facility] [address] Home Care Provider Family Medicine 06/09/22 Michael Boogie MD [address] [place] [address] [phone] Referring Internal Medicine 06/09/22 Matthias Richard, director museum or zoo Cycle Consultant 01/04/24 Sounding Device Operator Relationship Specialty Start Date End Date Marcio Vasquez APRN.BUSINESS SUPPORT ASSOCIATE [address] [place] [address] PCP - General Family Medicine 12/12/20 Marcio Vasquez APRN.BUSINESS SUPPORT ASSOCIATE [address] [place] [address] Home Care Provider Family Medicine 06/09/22 Michael Boogie MD [address] [place] [address] Referring Internal Medicine 06/09/22 Sounding Device Operator Relationship Specialty Start Date End Date Marcio Vasquez APRN.BUSINESS SUPPORT ASSOCIATE [address] [place] [address] PCP - General Family Medicine 12/12/20 Marcio Vasquez APRN.BUSINESS SUPPORT ASSOCIATE [address] [place] [address] Home Care Provider Family Medicine 06/09/22 Michael Boogie MD [address] [place] [address] Referring Internal Medicine 06/09/22 Sounding Device Operator Relationship Specialty Start Date End Date Marcio Vasquez APRN.BUSINESS SUPPORT ASSOCIATE [address] [facility] [address] PCP - General Family Medicine 12/12/20 Marcio Vasquez APRN.BUSINESS SUPPORT ASSOCIATE [address] [place] [address] 36793 Home Care Provider Family Medicine 06/09/22 Michael Boogie MD [address] [place] [address] [phone] Referring Internal Medicine 06/09/22 FOR RECORDS PERTAINING TO PATIENTS WHO ARE OR HAVE BEEN ENROLLED IN A CHEMICAL DEPENDENCY/SUBSTANCEABUSE PROGRAM, SOME INFORMATION MAY BE OMITTED. This clinical summary was aggregated from multiple sources. Caution should be exercised in using it in the provision of clinical care. This summary normalizes information from multiple sources, and as a consequence, information in this document may materially change the coding, format and clinical context of patient data. In addition, data may be omitted in some cases. CLINICAL DECISIONS SHOULD BE BASED ON THE PRIMARY CLINICAL RECORDS. [facility] [employer] provides no warranty or guarantee of the accuracy or completeness of information in this document.
== END 2025-08-11 16:50 | disposition left against medical advice (07) ==
LOC: ED 16:52
PROVIDERS: PCP Family Medicine
DX: Z00.00 Encounter for general adult medical examination without abnormal findings (principal)